=== PATIENT | female | born 1950 | race Caucasian/White ===

== ENCOUNTER 2019-02-21 00:39 | Outpatient (CLI) | payer MEDICARE, SELFPAY ==
--- NOTE | ~2019-02-21 | MM_ITS ---
EXAMINATION: MM diagnostic mirella BI w patrick HISTORY: Left breast cancer TECHNIQUE: Additional 3-D tomosynthesis images of the breasts were performed and synthetic 2-D images were generated. CAD analysis was submitted and interpreted. COMPARISON: Comparison to multiple prior studies sequentially, with oldest reviewed study dated 02/10. FINDINGS: Breast composed of scattered areas of fibroglandular density. There are no suspicious guillermo s, calcifications or architectural distortion to suggest malignancy. There are postsurgical changes o f the left breast with overlying port. IMPRESSION: 1. No mammographic evidence for malignancy in either breast. 2. Routine yearly screening mammogram and regular clinical breast examination are recommended. BI-RADS Category 2: Benign finding(s). Reviewed, dictated and finalized at location A. [facility] [employer] IMPRESSION: 1. No mammographic evidence for malignancy in either breast. 2. Routine yearly screening mammogram and regular clinical breast examination a re recommended. BI-RADS Category 2: Benign finding(s).
== END 2019-02-21 00:40 | disposition home or self-care (01) ==
PROVIDERS: PCP Internal Medicine; Visit Provider Internal Medicine Hematology & Oncology
DX: C50.412 Malignant neoplasm of upper-outer quadrant of left female breast (principal); Z17.0 Estrogen receptor positive status [ER+]
CPT/HCPCS: 77062; 77066; G0279

== ENCOUNTER 2019-04-09 10:36 | Outpatient (CLI) | payer MEDICARE, SELFPAY ==
--- NOTE | 2019-04-09 10:42 | ECG_ITS ---
Measurements Intervals [place] Rate: 82 P: 45 WA: 148 QRS: 0 QRSD: 91 T: 36 QT: 380 QTc: 445 Interpretive Statements SINUS RHYTHM BORDERLINE R WAVE PROGRESSION, ANTERIOR LEADS BORDERLINE ECG Electronically Signed On 04-09-2019 11:40:39 MOTORCYCLE TECHNICIAN by Justin Rosas D.O.
[2019-04-09 11:17] LABS: INR 0.8; Prothrombin Time 11.2 Seconds (11.1-14.7)
[2019-04-09 11:18] LABS: Partial Thromboplastin Time 25.9 SECONDS (22.3-36.8)
== END 2019-04-09 10:37 | disposition home or self-care (01) ==
PROVIDERS: Anesthesiology; PCP Internal Medicine; Visit Provider Surgery
DX: N28.9 Disorder of kidney and ureter, unspecified (principal); I12.9 Hypertensive chronic kidney disease with stage 1 through stage 4 chronic kidney disease, or unspecified chronic kidney disease; R94.31 Abnormal electrocardiogram [ECG] [EKG]
CPT/HCPCS: 36415; 85610; 85730; 93005

== ENCOUNTER 2019-04-12 01:22 | Day surgery (SDC) | payer MEDICARE, SELFPAY ==
[2019-04-08 13:15] VITALS: BMI 36.1
--- NOTE | 2019-04-12 08:38 | PM.SD ---
Same Day Admit/Disch: HPI History of Present Illness Chief complaint: Breast Ca Narrative: Cheri Prado is a 68 year old female Who in November of 2017 underwent left partial mastectomy with left axillary sentinel lymph node biopsy. She also underwent placement of a left subclavian Port-A-Cath. This was done by . This was a HER 2 positive tumor and the patient underwent chemotherapy. She did have radiation therapy to the left chest as well. Her Port-A-Cath is no longer needed. She is taken to surgery now for removal of her left subclavian Port-A-Cath. FOR[facility]LY [facility] Past Medical History Medical History (Updated 04/12/19 @ 10:22 by Wong Orona MD) Breast cancer, left Chronic kidney disease Depression Diabetes Hyperlipidemia Hypertension Neuropathy Family History Family History Other Family history of malignant neoplasm of gastrointestinal tract Social History Social History Smoking status: Never smoker Second hand tobacco smoke exposure: No Alcohol intake: never Gender identity (if verbalized by the patient): Female Same Day Admit/Disch: Med Pre-admit Medications Home Medications Medication Instructions Recorded Confirmed Type amlodipine 5 mg PO DAILY 12/28/18 04/12/19 History aspirin [Aspir-81] 81 mg PO DAILY 12/28/18 04/08/19 History calcitriol 0.25 mcg PO HS 12/28/18 04/12/19 History cholecalciferol (vitamin D3) 50,000 unit PO WEEKLY 12/28/18 04/08/19 History citalopram 20 mg PO DAILY 12/28/18 04/12/19 History gabapentin 300 mg PO BID 12/28/18 04/08/19 History lisinopril 20 mg PO DAILY 12/28/18 04/08/19 History loperamide 2 mg PO DAILY 12/28/18 04/12/19 History metformin 1,000 mg PO BID 12/28/18 04/08/19 History pravastatin 40 mg PO HS 12/28/18 04/08/19 History sertraline 100 mg PO DAILY 12/28/18 04/08/19 History anastrozole 1 mg PO HS 04/08/19 04/08/19 History mecobalamin (vitamin B12) 1 cap PO DAILY 04/08/19 04/12/19 History hydrocodone-acetaminophen 1 - 2 tablet PO Q6H PRN #7 tablet 04/12/19 Rx Exam Const: General: comfortable, no acute distress, alert and awake HENMT: Head: normocephalic and atraumatic Mouth: Yes Normal oral and palatal mucosa present Eyes: Conjunctivae: conjunctivae normal Pupils: Equal, round and reactive pupils present EOM: EOMs intact bilaterally Neck: Neck: normal visual inspection, no lymphadenopathy and nontender Chest: Chest palpation & inspection: abnormal inspection of the chest ( Left subclavian Port-A-Cath noted.), no tenderness and No rash Resp: Effort & Inspection: normal respiratory effort Auscultation: clear to auscultation bilaterally Cardio: Rate: regular rate Rhythm: regular rhythm Heart sounds: no gallops, no murmurs and no rubs GI: Inspection: non-distended GI Palp: Yes Soft to palpation, No Tenderness to palpation present (GI), No Hepatomegaly present and No Splenomegaly present Skin: Lesions: no lesions Rashes: no rashes Neuro: General: no focal motor deficits and CN's II-XI intact bilaterally Cranial nerves: Yes Equal, round and reactive pupils present, Yes Bilaterally intact EOM present, Yes facial symmetry and Yes Midline tongue present Speech: normal speech Motor exam (neuro): 5/5 motor strength present throughout and Motor abnormalities not present Extrem: General: no clubbing, cyanosis or edema and edema Psych: Affect: normal affect Thought process: Normal thought process present Insight: Good insight present (Psych) DS: Summary Time Spent with Patient Time attestation: Total time spent providing and/or coordinating discharge services: DS: Diagnosis Admitting Diagnosis Admitting Diagnosis: Essential (primary) hypertension Discharge Diagnosis (1) Breast cancer, left: Code(s): C50.912 - Malignant neoplasm of unspecified site of left female breast Status: Chronic Assessme
[2019-04-12 10:19] VITALS: BP 138/77; PULSE 86; RESP 20; TEMP 36.9; O2SAT 97
--- NOTE | 2019-04-12 10:19 | WPDANESEPPF ---
Anes - Initial Pre Proc Eval Procedure: Operation Date: 04/12/19 11:45 Proposed Procedures p Removal David Cath - Bennie Warren MD Date/Time: 04/12/19 10:19 Surgeon: Bennie Warren MD Pre Op Diagnosis: Breast Ca Patient Data Age: 68 Gender: F Height: 5 ft 1 in Weight: 86.64 kg Allergies Allergy/AdvReac Type Severity Reaction Status Date / Time No Known Allergies Allergy Unverified 04/08/19 13:07 Home Medications Medication Instructions Recorded Confirmed Type amlodipine 5 mg PO DAILY 12/28/18 04/08/19 History aspirin [Aspir-81] 81 mg PO DAILY 12/28/18 04/08/19 History calcitriol 0.25 mcg PO HS 12/28/18 04/08/19 History cholecalciferol (vitamin D3) 50,000 unit PO WEEKLY 12/28/18 04/08/19 History citalopram 20 mg PO DAILY 12/28/18 04/08/19 History gabapentin 300 mg PO BID 12/28/18 04/08/19 History lisinopril 20 mg PO DAILY 12/28/18 04/08/19 History loperamide 2 mg PO DAILY 12/28/18 04/08/19 History metformin 1,000 mg PO BID 12/28/18 04/08/19 History pravastatin 40 mg PO HS 12/28/18 04/08/19 History sertraline 100 mg PO DAILY 12/28/18 04/08/19 History anastrozole 1 mg PO HS 04/08/19 04/08/19 History mecobalamin (vitamin B12) 1 cap PO DAILY 04/08/19 04/08/19 History Patient hx anesthesia problems: none Family hx anesthesia problems: none PMFSH Past Medical History Medical History (Updated 04/12/19 @ 10:22 by Wong Orona MD) Breast cancer, left Chronic kidney disease Depression Diabetes Hyperlipidemia Hypertension Neuropathy Family History Family History Other Family history of malignant neoplasm of gastrointestinal tract Social History Social History Smoking status: Never smoker Second hand tobacco smoke exposure: No Alcohol intake: never Gender identity (if verbalized by the patient): Female Anes - Eval Final PreProcedure Day of Procedure 04/12/19 10:19 Patient weight: obese Heart: regular rate and rhythm Lungs: clear to auscultation Airway: Mallampati scale class II Neurological: alert and oriented Last oral intake: >/= 8 hours ASA classification: III Emergent: no Anesthetic plan: proceed Anesthesia type and monitoring: general GIVS and standard monitoring Informed Consent: The patient's anesthetic plan and its attendant risks and benefits were discussed with the patient/family/POA. Questions were solicited and answers provided to the satisfaction of the patient/family/POA.
[2019-04-12] MEDS: LACTATED RINGERS 1,000 ML 30 ML IV CONT (10:30)
[2019-04-12 10:51] LABS: Glucose Point of Care 86 (65-105)
[2019-04-12] MEDS: ceFAZolin 2 GM/D5W 50 ML 2 GM/50 ML BAG IVPB (11:53)
[2019-04-12] MEDS: BUPIVACAINE/EPINEPHRINE 0.5% 30 ML VIAL INFILTRATE (12:11)
[2019-04-12 12:28] VITALS: BP 104/59; BP 108/57; PULSE 71; PULSE 99; RESP 14; O2SAT 93
--- NOTE | 2019-04-12 12:36 | PM.PROC ---
Procedure Note - Detailed Date of procedure: 04/12/19 Pre-op diagnosis: Breast Ca; Port-A-Cath no longer needed Left breast cancer, left subclavian Port-A-Cath no longer needed Post-op diagnosis: same Procedure performed: Removal left subclavian Port-A-Cath Description of procedure: The patient was taken to surgery and IV sedation was administered. The left upper chest and breast were prepped and draped. The reservoir was easily found. The proposed incision was marked on the skin over the reservoir. Local was infiltrated into the skin and the subcutaneous tissues. Incision was made and dissection to the reservoir was carried out. The fiber sheath around the reservoir was opened. The reservoir was dissected free from the fiber sheath. The sutures keeping the reservoir secure in the pocket were cut and the reservoir was able to be removed. There was back bleeding from the tract. The opening of the tract was closed with a 3 0 Monocryl suture. The Port-A-Cath was inspected and was intact. It was discarded. The wound was hemostatic. Additional local was infiltrated. The wound was closed in layers with interrupted 3 0 Monocryl suture. The skin was closed with subcuticular running 4 0 Monocryl skin suture. Wound was dressed with Exofin surgical adhesive. The patient was awakened and taken to recovery in good condition. Sponge and needle counts were correct x2. Anesthesia: MAC and local (0.5% Marcaine with epinephrine) Surgeon: Bennie Warren MD Concrete Pourer: Sarah BENÍTEZ ACADEMIC SUCCESS COORDINATOR Estimated blood loss (mL): 5 Drains: No Packing: No Pathology: none sent Complications: None Condition: stable Disposition: same day Findings: Intact Port-A-Cath
[2019-04-12 12:44] LABS: Glucose Point of Care 81 (65-105)
[2019-04-12 12:55] VITALS: BP 110/62; PULSE 82
[2019-04-12 13:25] VITALS: BP 117/64; PULSE 91
== END 2019-04-12 13:33 | disposition home or self-care (01) ==
PROVIDERS: PCP Internal Medicine; Visit Provider Surgery
PROC: (CPT 36589; principal; 2019-04-12 11:45)
DX: Z45.2 Encounter for adjustment and management of vascular access device (principal); Z85.3 Personal history of malignant neoplasm of breast; Z92.21 Personal history of antineoplastic chemotherapy; Z92.3 Personal history of irradiation; I12.9 Hypertensive chronic kidney disease with stage 1 through stage 4 chronic kidney disease, or unspecified chronic kidney disease; N18.9 Chronic kidney disease, unspecified; E11.22 Type 2 diabetes mellitus with diabetic chronic kidney disease; E78.5 Hyperlipidemia, unspecified; E11.40 Type 2 diabetes mellitus with diabetic neuropathy, unspecified; Z79.82 Long term (current) use of aspirin; Z79.84 Long term (current) use of oral hypoglycemic drugs; Z79.811 Long term (current) use of aromatase inhibitors; E66.9 Obesity, unspecified; Z68.36 Body mass index [BMI] 36.0-36.9, adult
CPT/HCPCS: 36590; J0690; J2250; J2704; J7120

== ENCOUNTER 2019-07-03 09:09 | Outpatient (CLI) | payer MEDICARE, SELFPAY ==
--- NOTE | ~2019-07-03 | DEXA_ITS ---
Bone Density Report Name: Cheri Prado Age: 68 Sex: Female Ethnicity: White Date of : 1950 Indication: postmenopausal; height loss; cancer; hysterectomy; Referring Provider: Emir Ruggiero Study: Bone densitometry was performed. Exam Date: July 03, 2019 Accession number: [id number] Bone Density: Region BMD T-score Z-score Classification AP Spine (L1-L4) 1.276 2.1 4.0 Normal Femoral Neck (Left) 0.858 0.1 1.7 Normal Total Hip (Left) 1.087 1.2 2.6 Normal Total Hip Bilateral Avg 1.062 1.0 2.4 Normal Femoral Neck (Right) 0.825 -0.2 1.4 Normal Total Hip (Right) 1.037 0.8 2.2 Normal World Health Organization criteria for BMD impression classify patients as: Normal (T-score at or above -1.0), Osteopenia (T-score between -1.0 and -2.5), or Osteoporosis (T-score at or below -2.5). 10-year Fracture Risk: FRAX not reported because: All T-scores for Spine Total, Hip Total, Femoral Neck at or above -1.0 Previous Exams: Region Exam Age BMD T-score BMD Change BMD Change Date g/cm2 vs Baseline vs Previous AP Spine(L1-L4) 07/03/2019 68 1.276 2.1 0.067(5.6%)# -0.002(-0.1%) 02/16/2015 64 1.278 2.1 0.069(5.7%)# 0.049(4.0%)# 12/28/2012 62 1.229 1.7 0.020(1.7%)# -0.021(-1.7%)# 12/20/2010 60 1.250 1.8 0.041(3.4%)* 0.041(3.4%)* 12/08/2008 58 1.209 1.5 Total Hip(Left) 07/03/2019 68 1.087 1.2 -0.101(-8.5%)# -0.021(-1.9%) 02/16/2015 64 1.108 1.4 -0.079(-6.7%)# -0.080(-6.7%)# 12/28/2012 62 1.188 2.0 0.001(0.1%)# -0.048(-3.9%)# 12/20/2010 60 1.236 2.4 0.048(4.1%)* 0.048(4.1%)* 12/08/2008 58 1.187 2.0 Total Hip(Right) 07/03/2019 68 1.037 0.8 -0.121(-10.5%) -0.046(-4.2%)* 02/16/2015 64 1.083 1.2 -0.076(-6.5%)# -0.018(-1.7%)# 12/28/2012 62 1.101 1.3 -0.057(-5.0%)# -0.018(-1.6%)# 12/20/2010 60 1.120 1.5 -0.039(-3.4%)* -0.039(-3.4%)* 12/08/2008 58 1.159 1.8 *Denotes significance at 95% confidence level, LSC for AP Spine = 0.022 g/cm2, LSC for Total Hip = 0.027 g/cm2 Clinical Information Provided by Patient: Smokes Has used the following medications: Vitamin D Has the following medical conditions: Cancer, Hysterectomy Patient maximum height was 62 Menopause Age: 46 No regular weight bearing exercise Does not regularly consume dairy products Drinks caffeinated beverages Onset of menses at age 17 Number of children 2 Impression: The bradley
== END 2019-07-03 09:10 | disposition home or self-care (01) ==
PROVIDERS: PCP Internal Medicine; Visit Provider Internal Medicine Hematology & Oncology
DX: M85.89 Other specified disorders of bone density and structure, multiple sites (principal)
CPT/HCPCS: 77080

== ENCOUNTER 2019-10-08 11:32 | Outpatient (CLI) | payer MEDICARE, SELFPAY ==
--- NOTE | ~2019-10-08 | MM_ITS ---
EXAMINATION: MM diagnostic mirella LT w patrick HISTORY: The breasts is a collection is present just is reversal of the TECHNIQUE: ML, MLO and cc 3-D tomosynthesis images of the left breast were performed and synthetic 2- D images were generated. CAD analysis was submitted and interpreted. COMPARISON: 02/28/2019bilateral digital screening mammogram BREAST PARENCHYMAL COMPOSITION: There are scattered areas of fibroglandular density. FINDINGS: Surgical clips are noted in the mid to outer upper left breast; history of 11/2017 partial m astectomy for breast malignancy No suspicious mass is evident. No malignant calcification or skin thickening is noted. IMPRESSION: 1. Status post left partial mastectomy for breast cancer; no malignancy is evident 2. Routine mammographic screening is recommended; this does not preclude any additional imaging as co nsidered appropriate clinically for follow-up imaging of this breast cancer patient. BI-RADS Category 2: Benign finding(s). Reviewed, dictated and finalized at location A. IMPRESSION: 1. Status post left partial mastectomy for breast cancer; no malignancy is evid ent 2. Routine mammographic screening is recommended; this does not preclude any ad ditional imaging as considered appropriate clinically for follow-up imaging of this breast cancer patient. BI-RADS Category 2: Benign finding(s).
== END 2019-10-08 11:33 | disposition home or self-care (01) ==
LOC: ANHIMG 11:35
PROVIDERS: PCP Internal Medicine; Visit Provider Internal Medicine Hematology & Oncology
DX: C50.412 Malignant neoplasm of upper-outer quadrant of left female breast (principal)
CPT/HCPCS: 77061; 77065; G0279

== ENCOUNTER 2019-12-15 21:35 | Observation (INO) | payer MEDICARE, SELFPAY ==
--- NOTE | ~2019-12-15 | MR_ITS ---
EXAMINATION: MR brain/brain stem wo/w con EXAM DATE: 12/16/2019 09:41 INDICATION: Slurred speech. Syncope. Symptoms have resolved. Transient ischemic attack. TECHNIQUE: Magnetic resonance imaging (MRI) of the brain/brain stem obtained without contrast. Sagit helena T1, axial diffusion, gradient echo (T2*), T1, T2, FLAIR sequences obtained. Patient was then inj ected with 17 cc intravenous Multihance contrast. Axial and coronal postcontrast T1 weighted sequence s obtained. Correlation is made to CTA brain carotid same date. FINDINGS: There are no areas of restricted diffusion to suggest acute infarction. There is no acute hemorrhage seen on the T2*, a hemosiderin sensitive sequence. No intraparenchymal brain mass lesion. There is minimal periventricular and subcortical T2/FLAIR signal hyperintensity, nonspecific but pro bably related to small vessel ischemic disease (microangiopathy). There is mild prominence of the s ulci and ventricles related to cerebral atrophy. There are no extra-axial collections. Flow voids are seen in the cerebral arteries on the T2-weighted sequences consistent with their expected patency . Patient has had left-sided ocular lens surgery. Soft tissue is unremarkable. There are no areas of abnormal enhancement on the postcontrast images. IMPRESSION: 1. No acute intracranial findings. 2. Chronic age related findings. Reviewed, dictated and finalized at location B.
--- NOTE | ~2019-12-15 | CT_ITS ---
EXAMINATION: CTA brain carotid EXAM DATE: 12/15/2019 23:08 INDICATION: Dizziness, slurred speech. TECHNIQUE: Noncontrast head CT. Spiral CTA of the carotid arteries was performed with intravenous i njection 100 cc of Omnipaque 350. Axial, coronal, sagittal reformatted images reviewed. Additional r eformatted images created on dedicated 3-D workstation. NASCET comparable standard used to assess th e degree of arterial stenosis. Spiral CT angiogram cerebral arteries performed with the same intrave nous injection of contrast. Source images of the brain CTA transferred to dedicated workstation for 3 -D rotational image creation. Coronal, sagittal maximum intensity pixel images also reviewed. The d ose-length product (DLP) for this examination was 1467.84 mGy-cm. The exposure was tailored accordi ng to patient size, and iterative reconstruction (ASIR) was used as additional dose reduction techniq ue. There is no prior study for comparison. FINDINGS: Mild bilateral carotid bulb arterial sclerosis with 0% stenosis bilaterally. Moderate bilat eral carotid siphon arterial sclerosis, with regions of circumferential calcification, but without ap preciable narrowing of the carotid siphons bilaterally. Vertebral arteries are codominant. There is no carotid or vertebral basilar arterial dissection or fibromuscular dysplasia. There are no cerebral artery aneurysms. There is symmetric cerebral artery arborization. The sagittal, transverse and sigm oid sinuses enhance normally, no venous sinus thrombosis. Internal cerebral veins also enhance normal ly. There is no acute intraparenchymal hemorrhage. No evidence of intraparenchymal brain mass lesion. N o evidence of acute infarction. Mild microangiopathy and cerebral atrophy. There is no mass effect o r midline shift. There is no obstructive hydrocephalus suspected. There are no extra-axial collectio ns. There are no calvarial acute fractures. Left cataract surgery. IMPRESSION: 1. No cervical arterial dissection or cerebral artery aneurysm. 2. No carotid bulb stenosis, or acute findings Reviewed, dictated and finalized at location B.
--- NOTE | ~2019-12-15 | XR_ITS ---
XR chest 1V portable DATE: 12/15/2019 22:40 INDICATION: Syncopal episode. Slight headache. TECHNIQUE: Portable upright AP chest on 12/15/2019 at 2241 hours COMPARISON: 02/07/2018 portable AP chest at 0840 hours FINDINGS: Heart size is within normal limits. Is aortic arch calcification. No hilar or mediastinal e nlargement is evident. The lungs appear hyperinflated but clear of infiltrate or consolidation. No pl eural effusion or pulmonary vascular congestion or pneumothorax. Diffuse osteopenia. Degenerative spurring of the thoracic spine. IMPRESSION: Hyperinflation; no active cardiopulmonary disease Reviewed, dictated and finalized at location A.
[2019-12-15 21:41] VITALS: BP 129/81; PULSE 99; RESP 17; TEMP 37.1; O2SAT 99
--- NOTE | 2019-12-15 21:55 | ECG_ITS ---
Measurements Intervals [place] Rate: 102 P: MA: 0 QRS: 12 QRSD: 83 T: 56 QT: 319 QTc: 417 Interpretive Statements ATRIAL TACHYCARDIA CHANGES TO SINUS RHYTHM NONSPECIFIC ST & T-WAVE ABNORMALITY- INF/HIGH LAT LEADS BASELINE ARTIFACT- I, II, III, AVR, AVL, AVF, V1 ABNORMAL ECG Electronically Signed On 12-16-2019 6:53:16 CDT by Justin Rosas D.O.
--- NOTE | 2019-12-15 22:11 | ECG_ITS ---
Measurements Intervals [place] Rate: 95 P: 61 MS: 137 QRS: 7 QRSD: 87 T: 50 QT: 378 QTc: 476 Interpretive Statements SINUS RHYTHM DELAYED PRECORDIAL R/S TRANSITION BASELINE ARTIFACT- AVR, AVL, AVF, V3 BORDERLINE ECG Electronically Signed On 12-16-2019 9:53:32 CDT by Justin Rosas D.O.
[2019-12-15 22:13] VITALS: BP 137/67; PULSE 98; RESP 18; TEMP 37.1; O2SAT 98
--- NOTE | 2019-12-15 22:13 | ED.GENADULT ---
HPI - General Adult General Chief complaint: Syncope Stated complaint: syncopal episode Time Seen by Provider: 12/15/19 21:43 Source: patient Mode of arrival: ambulatory Limitations: no limitations History of Present Illness HPI narrative: This patient is a 69 year old female who presents for evaluation of a syncopal episode. Patient states she had just finished having dinner with her family. She was walking around when she states her eyes seemed to cross and she did not feel right. She states she went inside her house to sit down on the couch. She reports dizziness. She was able to call her daughter, and she told her she did not feel right and to come back to her house. Her daughter states when her sister found the patient, she was laying on the couch with her eyes closed with unintelligible speech. They also reports was having chills. Patient denies feeling chest pain, sob, or palpitations at the time of her dizziness. She denies any complaints now. She denies history of heart disease or CVA. Related Data Home Medications Medication Instructions Recorded Confirmed amlodipine 5 mg PO DAILY 12/28/18 12/16/19 calcitriol 0.25 mcg PO HS 12/28/18 12/16/19 cholecalciferol (vitamin D3) 50,000 unit PO WEEKLY 12/28/18 12/16/19 citalopram 20 mg PO DAILY 12/28/18 12/16/19 gabapentin 300 mg PO TID 12/28/18 12/16/19 lisinopril 20 mg PO DAILY 12/28/18 12/16/19 loperamide 2 mg PO BID 12/28/18 12/16/19 metformin 1,000 mg PO BID 12/28/18 12/16/19 pravastatin 40 mg PO HS 12/28/18 12/16/19 sertraline 100 mg PO DAILY 12/28/18 12/16/19 mecobalamin (vitamin B12) 1 cap PO DAILY 04/08/19 12/16/19 anastrozole 1 mg tablet 1 mg PO DAILY 07/16/19 12/16/19 ferrous sulfate 325 mg PO DAILY 12/15/19 12/16/19 Allergies Allergy/AdvReac Type Severity Reaction Status Date / Time No Known Allergies Allergy Verified 12/15/19 21:50 Review of Systems Review of Systems: All systems reviewed & are unremarkable except as noted in HPI and below Constitutional: Constitutional: Reports chills Eyes: Eyes: Reports change in vision ENT: Reports dizziness Cardiovascular: Cardiovascular: Denies chest pain and Denies radiating jaw, neck or arm pain Respiratory: Respiratory: Denies cough and Denies dyspnea Gastrointestinal: Gastrointestinal: Denies abdominal pain, Denies nausea and Denies vomiting Neurologic: Reports syncope, Denies focal weakness and Denies numbness PMFSH Social History Social History Years smoked: 4 Smoking status: Current every day smoker Tobacco type: cigarettes Second hand tobacco smoke exposure: Yes Alcohol intake: former Substance use: never Substance use type: does not use Gender identity (if verbalized by the patient): Female Spiritual care concerns: No Exam Narrative: Exam Narrative: GENERAL: Well-appearing, well-nourished, and in no acute distress. HEAD: Normocephalic, atraumatic EYES: PERRLA and EOMI, conjunctiva clear without discharge EARS: TM's clear bilaterally without erythema or dullness NOSE: Nares clear, no rhinorrhea or epistaxis THROAT:Mucous membranes moist, Oropharynx normal without erythema, exudate, peritonsillar swelling or fluctuance NECK: Supple, without lymphadenopathy or mass RESPIRATORY: No respiratory distress, Airway patent, Respirations non-labored, Clear to auscultation without rales, rhonchi or wheeze HEART: Regular rate and rhythm. No murmur heard. Normal peripheral pulses. ABDOMEN: Soft, nontender, nondistended, normal active bowel sounds. No masses. No rebound or guarding, No organomegaly. EXTREMITIES: No edema, normal strength with full range of motion. SKIN: Warm, dry, normal color without rash NEURO: Alert and oriented x3. CN 2-12 grossly intact. No focal deficits. PSYCH: Normal mood and affect. Course Consultations Consultation #1: I discussed case with Dr. Palma. She accepts patient to [facility] tel
--- NOTE | 2019-12-15 22:18 | PC.NURSE ---
Patient's bedside glucose is 114.
[2019-12-15 22:19] VITALS: BP 136/67; BP 139/73; BP 141/69; PULSE 101; PULSE 102; PULSE 91
[2019-12-15 22:20] LABS: Glucose Point of Care 114 (65-105)
[2019-12-15 22:22] LABS: Basophils Absolute Auto 0.1 K/mm3 (0.0-0.1); Basophils Percent Auto 0.4 % (0.2-1.2); Eosinophils Absolute Auto 0.2 K/mm3 (0-0.3); Eosinophils Percent Auto 1.5 % (0-4.4); Hematocrit 38.1 % (37.0-47.0); Hemoglobin 11.6 g/dL (12.0-15.0); Immature Granulocyte Absolute 0.03 K/mm3 (0.00-0.031); Immature Granulocyte Percent A 0.2 % (0-0.5); Lymphocytes Absolute Auto 1.98 K/mm3 (0.9-3.2); Lymphocytes Percent Auto 15.5 % (18.3-44.2); Mean Corpuscular HGB Conc 30.4 g/dl (32-36); Mean Corpuscular Hemoglobin 28.4 pg (26-34); Mean Corpuscular Volume 93.2 fl (80-100); Mean Platelet Volume 10.7 fl (7.4-10.4); Monocytes Percent Auto 7.9 % (2.6-8.5); Neutrophils Absolute Auto 9.5 K/mm3 (1.3-6.7); Neutrophils Percent Auto 74.5 % (45.5-73.1); Platelet Count Result 238 k/mm3 (150-375); Red Blood Count 4.09 M/mm3 (4.2-5.4); Red Cell Distribution Width 13.8 % (11.5-14.5); White Blood Count 12.8 K/mm3 (4.5-10.0)
--- NOTE | 2019-12-15 22:26 | PC.NURSE ---
Patient attempting to give urine sample at this time.
[2019-12-15 22:31] LABS: Prothrombin Time 13.1 Seconds (11.1-14.7)
[2019-12-15 22:32] LABS: Partial Thromboplastin Time 26.9 SECONDS (22.3-36.8)
[2019-12-15 22:33] LABS: Anion Gap 14 mmol/L (8-16); Blood Urea Nitrogen 23 mg/dL (7-17); Calcium 9.6 mg/dL (8.4-10.2); Carbon Dioxide 26 mmol/L (22-30); Chloride 105 mmol/L (98-107); Estimated CRCL calculation 32 ml/min; Estimated Glomerular Filt Rate 35; Glucose 117 mg/dL (65-105); Sodium 145 mmol/L (137-145)
--- NOTE | 2019-12-15 22:33 | PC.NURSE ---
Patient unsuccessful with attempting to provide a urine specimen. Patient states she will attempt again shortly.
[2019-12-15 22:45] LABS: Troponin I < 0.012 ng/mL (0.000-0.034)
--- NOTE | 2019-12-15 22:45 | PC.NURSE ---
Patient taken to CT.
[2019-12-15 23:05] VITALS: BP 127/61; PULSE 86; RESP 18; O2SAT 97
[2019-12-15] MEDS: MAGNESIUM SULF 2 GM/WATER 50ML 2 GM/50 ML BAG IVPB (23:05)
[2019-12-15] MEDS: LACTATED RINGERS 1,000 ML 999 ML IV CONT (23:05)
[2019-12-16] VITALS (11 sets, daily range): BP systolic 116–144; BP diastolic 51–67; PULSE 78–96; RESP 12–20; TEMP 36.3–37.4; O2SAT 96–98; BMI 36.6
[2019-12-16 00:51] LABS: Add Urine Microscopic? YES; Appearance Urine Clear (Clear); Bilirubin Urine Negative (Negative); Blood Urine 2+ (Negative); Color Urine Yellow (Yellow); Glucose Urine UA Negative (Negative); Ketones Urine Negative (Negative); Leukocyte Esterase Ur 1+ LEU/UL (Negative); Mucus Urine Rare /lpf; Nitrate Urine Negative (Negative); Protein Urine Negative (Negative); RBC Urine 0-2 /hpf (0-2); Squamous Epithelial Cell Urine Few /hpf (Few); Urobilinogen Urine Negative mg/dL (<2.0)
[2019-12-16 00:57] LABS: Specific Grav Ur 1.045 (1.001-1.035)
--- NOTE | 2019-12-16 01:04 | ADMGEN ---
This patient, Cheri Prado, was admitted to Medical Room 252-. Patient/family oriented to hospital policies and general routines including ID bracelet, bed and alarms, visiting hours, pain management, procedures, bathroom and other care routines, personal items, smoking policy, room service/diet, and visiting hours. Valuables list has been completed. Information on how to activate the Rapid Response Team has been discussed. Patient/Family are encouraged to report perceived risks to care and to ask questions if they do not understand what they are told or what they should do.
[2019-12-16] MEDS: SODIUM CHLORIDE 0.9% IV 1,000 ML 125 ML IV CONT ×2 (01:38→11:22)
--- NOTE | 2019-12-16 06:00 | ECHO_ITS ---
Patient Info Name: Cheri Prado Age: 69 years : 1950 Gender: Female Ht: 61 in Wt: 189 lbs BSA: 1.96 m2 HR: 87 bpm BP: 116 / 51 mmHg Heart Rhythm: Sinus Rhythm Technical Quality: Good Exam Date: 12/16/2019 2:13 PM Exam Location: [facility] Pulmonary Patient Status: Inpatient Admit Date: 12/15/2019 Staff Ordering Physician: Parris Graham MD Biomedical Scientist: Paul Carrillo RDCS Attending Provider: Marifer Woodson PA-C Referring Physician: Gladys SAHA; Exam Type: CA echo doppler color flow Study Info Indications R55 - Syncope and collapse Complete two-dimensional, color flow and Doppler transthoracic echocardiogram is performed. History/Risk Factors Syncope; possible arrhythmia, CKD, HTN, Dm2. Summary 1. Complete two-dimensional, color flow and Doppler transthoracic echocardiogram is performed. 2. Left ventricular chamber dimension is normal. 3. Left ventricular systolic function is normal, estimated at 60-65%. 4. The left ventricular diastolic function is grade I diastolic dysfunction. 5. There is trace mitral valve regurgitation. 6. There is trace tricuspid valve regurgitation. 7. Compared with study dated December of 2017 there is no significant difference. Left Ventricle Left ventricular chamber dimension is normal. Left ventricular systolic function is normal, estimated at 60-65%. The left ventricular diastolic function is grade I diastolic dysfunction. Right Ventricle Right ventricular chamber dimension is normal. Left Atria Left atrial chamber dimension is normal. Right Atria Right atrial chamber dimension is normal. Aortic Valve The aortic valve is trileaflet. Pulmonic Valve The pulmonic valve is normal. Mitral Valve The mitral valve has normal leaflets. There is trace mitral valve regurgitation. Tricuspid Valve The tricuspid valve leaflets are normal. There is trace tricuspid valve regurgitation. Pericardium/Pleural The pericardium appears normal. Aorta The aortic root size at the sinus of Valsalva is normal. Left Ventricular Outflow Tract Name Value Normal LVOT 2D LVOT Diameter 1.8 cm LVOT Doppler LVOT Peak Gradient 6 mmHg LVOT Mean Gradient 3 mmHg LVOT VTI 25 cm LVOT VTI/AV VTI Ratio 0.8 LVOT Stroke Volume 64 ml LVOT CO 5.6 l/min LVOT CI 2.8 l/min/m2 Mitral Valve Name Value Normal MV Doppler MV Decel [place] 597 cm/s2 MV PHT 48 ms MV Area (PHT) 4.5 cm2 4.0-5.0 MV Diastolic Function MV E Peak Velocity
--- NOTE | 2019-12-16 07:24 | PM.IMHP ---
H&P: HPI History of Present Illness Date/Time: 12/16/19 03:00 Chief complaint: Passed out Narrative: Cheri Prado is a 69 year old female with a past medical history of type 2 diabetes mellitus and hypertension who presented to the ER from home after having syncopal episode. The patient reports that she has been today cleaning up her deck in putting up the materials from her pool. She then prepared her usual Monday dinner. Her daughter's always come over with her family for Monday dinner. She had felt well all day until her daughter's were leaving the house. She had went outside to wave goodbye to her daughter and to smoke a cigarette. She she went to take a couple of puffs off the cigarette but did not feel well. She felt as if her eyes may have been crossing and everything without of focus. She went inside thinking that she may just may need a drink cuff soda because she had not had a soda all day. By the time she had gotten to the couch she felt so bad she called her daughter to get her to come back to her house. Before she could get a drink of her so does she passed out. The next thing she knew her daughters were standing around her. When her daughter had arrived at her house the patient was unresponsive and only mumbling intelligible words. Her daughter's called EMS who recommended that the patient come to the ER the family brought the patient to the ER via private vehicle. The patient was diaphoretic. The patient's glucose on arrival to the ER was 114. Review of Systems Review of Systems: Narrative: 12 systems were reviewed with pertinent positives and negatives per HPI. Except as documented in the HPI, all other systems were reviewed and are negative. [facility] Past Medical History Medical History (Updated 12/16/19 @ 08:20 by Neetu Palma DO) Breast cancer, left Oncologist Dr. Ruggiero Cataract, right eye Anticipating surgery soon Chronic kidney disease Depression Diabetes History of chronic diarrhea Following cholecystectomy on b.i.d. Imodium History of vaginal delivery x 2 Hyperlipidemia Hypertension Neuropathy Osteoarthritis of left knee Surgical History Surgical History (Updated 12/16/19 @ 07:58 by Neetu Palma DO) H/O total hysterectomy with removal of both tubes and ovaries Due to endometriosis History of augmentation of right breast (12/04/17) History of cholecystectomy History of left cataract extraction History of ovarian cystectomy History of partial mastectomy of left breast (12/04/17) Family History Family History (Updated 12/16/19 @ 07:59 by Neetu Palma DO) Father Heart disease Social History Social History (Updated 12/16/19 @ 08:04 by Neetu Palma DO) Social History: The patient reports that she smoked for approximately 27 years and then quit in 1999. She then started smoking again about 4 years ago when her . She used to drink alcohol rarely for on special occasions but has not drank alcohol in many years. She lives alone and has an [place] Pineda. She has 2 daughters. Smoking packs per day: 0.5 Smoking cigarettes per day: 10.0 Years smoked: 31 Smoking pack-years: 15.50 Smoking status: Current every day smoker Tobacco type: cigarettes Second hand tobacco smoke exposure: Yes Alcohol intake: former Substance use: never Substance use type: does not use Gender identity (if verbalized by the patient): Female Spiritual care concerns: No Meds Home Medications and Allergies Home Medications Medication Instructions Recorded Confirmed Type amlodipine 5 mg PO DAILY 12/28/18 12/16/19 History calcitriol 0.25 mcg PO HS 12/28/18 12/16/19 History cholecalciferol (vitamin D3) 50,000 unit PO WEEKLY 12/28/18 12/16/19 History citalopram 20 mg PO DAILY 12/28/18 12/16/19 History gabapentin 300 mg PO TID 12/28/18 12/16/19 History lisinopril 20 mg PO DAILY 12/28/18 12/16/19 History loperamide 2 mg PO BID 12/28/18 12/16/19 H
[2019-12-16 08:03] LABS: Glucose Point of Care 91 (65-105)
[2019-12-16] MEDS: SERTRALINE HCL 50 MG TABLET 100 MG PO (08:17)
[2019-12-16] MEDS: amLODIPine BESYLATE 5 MG TABLET PO (08:17)
[2019-12-16] MEDS: FERROUS SULFATE 324 MG TABLET PO (08:17)
[2019-12-16] MEDS: GABAPENTIN 300 MG CAPSULE PO ×3 (08:17→17:31)
[2019-12-16] MEDS: LOPERAMIDE HCL 2 MG CAPSULE PO ×2 (08:17→08:38)
[2019-12-16] MEDS: CITALOPRAM HYDROBROMIDE 20 MG TABLET PO (08:17)
[2019-12-16 08:21] LABS: Hematocrit 34.7 % (37.0-47.0); Hemoglobin 10.7 g/dL (12.0-15.0); Mean Corpuscular HGB Conc 30.8 g/dl (32-36); Mean Corpuscular Hemoglobin 28.7 pg (26-34); Mean Platelet Volume 10.2 fl (7.4-10.4); Platelet Count Result 204 k/mm3 (150-375); Red Blood Count 3.73 M/mm3 (4.2-5.4); Red Cell Distribution Width 13.9 % (11.5-14.5); White Blood Count 8.8 K/mm3 (4.5-10.0)
[2019-12-16 08:35] LABS: Anion Gap 8 mmol/L (8-16); Blood Urea Nitrogen 18 mg/dL (7-17); Calcium 9.2 mg/dL (8.4-10.2); Carbon Dioxide 26 mmol/L (22-30); Chloride 107 mmol/L (98-107); Estimated CRCL calculation 40 ml/min; Estimated Glomerular Filt Rate 45; Glucose 102 mg/dL (65-105); Magnesium 1.5 mg/dL (1.6-2.3); Potassium 4.1 mmol/L (3.4-5.0); Sodium 141 mmol/L (137-145)
--- NOTE | 2019-12-16 08:55 | PC.NURSE ---
Patient to MRI via wheelchair. IV intact.
--- NOTE | 2019-12-16 09:45 | PC.NURSE ---
Patient returned to room via wheelchair.
[2019-12-16] MEDS: MAGNESIUM SULF 2 GM/WATER 50ML 2 GM/50 ML BAG IVPB (11:25)
[2019-12-16] MEDS: ENOXAPARIN 40 MG/0.4 ML SYRINGE SUB-Q (11:27)
[2019-12-16 11:46] LABS: Glucose Point of Care 99 (65-105)
--- NOTE | 2019-12-16 15:41 | PM.IMPN ---
Progress Note: A&P Assessment and Plan (1) Syncope and collapse: Code(s): R55 - Syncope and collapse Status: Acute Assessment and Plan: -----unclear etiology but could be vasovagal with a bit of dehydration. No evidence of orthostatic changes but will check again. The ER mentions that she had a possible arrhythmia. Telemetry does not show any arrhythmia while here and echo is still pending. The patient's magnesium was 1.0 so she was given magnesium in the ER and on the floor. Will recheck tomorrow. It was noted that that the patient's EKG did initially look like it may have been atrial fibrillation but the end of the EKG strip appeared consistent with sinus rhythm and repeat EKG 10-20 minutes later appeared to be more consistent with sinus rhythm. Possible patient may have had an arrhythmia associated with her hypo magnesemia. Will await echo before discharge and monitor on tele. Will need outpt heart monitor ordered at discharge and she sees dr yoder. [facility] is now mailing them out and not placing them on them at discharge. MRI negative for stroke but cannot rule out TIA. Her Cr was elevated on admission, may have been dehydrated. Appears euvolemic now, will stop fluids. (2) Acute on chronic kidney failure: Qualifiers: Acute renal failure type: unspecified Chronic kidney disease stage: stage 3 (moderate) Chronic kidney disease stage 3 subtype: stage 3b (GFR 30-44) Qualified Code(s): N17.9 - Acute kidney failure, unspecified; N18.32 - Chronic kidney disease, stage 3b Code(s): N17.9 - Acute kidney failure, unspecified; N18.9 - Chronic kidney disease, unspecified Status: Acute Assessment and Plan: -----The patient's urine specific gravity is elevated suggesting that the patient may be hypovolemic. She did do a significant amount of house work and admits that she had not drink her usual amount of fluid. She drinks soda during the day. (3) Hypomagnesemia: Code(s): E83.42 - Hypomagnesemia Status: Acute Assessment and Plan: -----Low again today 1.5. Replaced again and will recheck tomorrow. (4) Diabetes mellitus: Code(s): E11.9 - Type 2 diabetes mellitus without complications Status: Acute Assessment and Plan: -----Last glucose 99. Continue SSI. Continue metformin at discharge once renal function improves. Time Spent With Patient Time with patient: 25 - 35 minutes Subjective Date/time seen: 12/16/19 15:41 Interval history: Pt is a 69-year-old female here for syncope. Patient was seen today and events reviewed with her. She states yesterday she was in her normal state of health but felt a little to more tired than normal. She decorated her house for [employer] and made a big dinner for her family (she did not drink alcohol during this time). After dinner, her family went home and she when out for a cigarette. During that time she started feeling like the world was spinning around her and she felt weak. She was able to walk back inside and sat on the couch and call her daughter. When the daughter arrived, the patient was unresponsive but breathing normal. She called 911. The patient does not remember anything until the ambulance arrived and remembers them. She had no chest pain during that time but had diaphoresis and chills according to the daughter. She had no loss of bowel or bladder function. She is a diabetic but no reports of hypoglycemia by EMS. EMS actually left the house and the daughter drove the patient to the ER. Patient has not had any additional symptoms while being here. She denies numbness, tingling, problems with speech, involuntary movements, problems walking, or headaches. She also denies nausea, vomiting, fevers, chills, constipation, diarrhea, chest pain, sob, or abdominal pain. Review of Systems Review of Systems: All systems reviewed & are unremarkable except as noted in HPI and below
[2019-12-16 17:01] LABS: Glucose Point of Care 87 (65-105)
[2019-12-16] MEDS: PRAVASTATIN SODIUM 20 MG TABLET 40 MG PO (20:16)
[2019-12-16] MEDS: calcitrioL 0.25 MCG CAPSULE PO (20:17)
[2019-12-16] MEDS: lisinopriL 20 MG TABLET PO (20:17)
[2019-12-16] MEDS: ANASTROZOLE (*CHEMO) 1 MG TABLET PO (20:17)
[2019-12-16 21:19] LABS: Glucose Point of Care 111 (65-105)
[2019-12-17] VITALS: PULSE 75
[2019-12-17 04:00] VITALS: BP 148/69; PULSE 75; PULSE 90; RESP 20; TEMP 36.6; O2SAT 94
[2019-12-17 05:26] VITALS: BP 127/64; BP 148/68
[2019-12-17 05:50] LABS: Hematocrit 32.2 % (37.0-47.0); Hemoglobin 9.9 g/dL (12.0-15.0); Mean Corpuscular HGB Conc 30.7 g/dl (32-36); Mean Corpuscular Hemoglobin 28.2 pg (26-34); Mean Corpuscular Volume 91.7 fl (80-100); Mean Platelet Volume 10.4 fl (7.4-10.4); Platelet Count Result 184 k/mm3 (150-375); Red Blood Count 3.51 M/mm3 (4.2-5.4); Red Cell Distribution Width 13.8 % (11.5-14.5); White Blood Count 6.9 K/mm3 (4.5-10.0)
[2019-12-17 06:09] LABS: Anion Gap 2 mmol/L (8-16); Blood Urea Nitrogen 16 mg/dL (7-17); Calcium 9.3 mg/dL (8.4-10.2); Carbon Dioxide 33 mmol/L (22-30); Chloride 106 mmol/L (98-107); Estimated CRCL calculation 44 ml/min; Estimated Glomerular Filt Rate 49; Glucose 94 mg/dL (65-105); Magnesium 1.6 mg/dL (1.6-2.3); Potassium 4.4 mmol/L (3.4-5.0); Sodium 141 mmol/L (137-145)
[2019-12-17 06:46] LABS: Thyroid Stimulating Hormone Reflex 0.959 uIU/mL (0.465-4.68)
[2019-12-17 08:06] LABS: Glucose Point of Care 85 (65-105)
[2019-12-17] MEDS: LOPERAMIDE HCL 2 MG CAPSULE 4 MG PO (08:16)
[2019-12-17] MEDS: MAGNESIUM SULF 2 GM/WATER 50ML 2 GM/50 ML BAG IVPB (08:16)
[2019-12-17] MEDS: GABAPENTIN 300 MG CAPSULE PO (08:16)
[2019-12-17] MEDS: SERTRALINE HCL 50 MG TABLET 100 MG PO (08:17)
[2019-12-17] MEDS: amLODIPine BESYLATE 5 MG TABLET PO (08:17)
[2019-12-17] MEDS: MAGNESIUM OXIDE 400 MG TABLET PO (08:17)
[2019-12-17] MEDS: ENOXAPARIN 40 MG/0.4 ML SYRINGE SUB-Q (08:17)
[2019-12-17] MEDS: CITALOPRAM HYDROBROMIDE 20 MG TABLET PO (08:17)
[2019-12-17] MEDS: FERROUS SULFATE 324 MG TABLET PO (08:17)
[2019-12-17 09:24] VITALS: PULSE 92
--- NOTE | 2019-12-17 09:35 | PM.DS ---
DS: Admitting Diagnosis Admitting Diagnosis Admitting Diagnosis: Passed out DS: Discharge Diagnosis Discharge Diagnosis (1) Syncope and collapse: Code(s): R55 - Syncope and collapse Status: Acute Assessment and Plan: Date of Admission 12/15/19 Date of Discharge/DOS: 12/17/19 Ms. Prado is a very pleasant 69yo F who presented to the ED for evaluation after a syncopal episode at home on 12/15/19. She had just eaten dinner with her children and after her children left her house, she began to feel lightheaded and felt his was spinning. She went to sit on the couch and call her daughter. By the time her daughter arrived, she was passed out on the couch. Patient does not recall these events however she is told that she did have some slurred speech at that time. Symptoms completely resolved shortly after. Patient is feeling well and at her baseline on day of discharge. Workup here included CTA head/neck as well as MRI brain which demonstrated no acute findings to explain her syncope. Magnesium was quite low at 1.0 on arrival and replaced. On arrival, she did have an EKG that evening that demonstrated a possible atrial tachycardia that converted to sinus rhythm, repeat EKG shortly after also demonstrated sinus rhythm. It is recommended that she follow-up with PCP and may be a good candidate for further evaluation with outpatient Holter monitor. Etiology of her syncope is ultimately unclear however differential includes vasovagal, cardiogenic given the hypomagnesemia and questionable brief arrhythmia, or possibly TIA. It is recommended the patient start 81 mg ASA daily for stroke risk reduction. She also has been started on oral magnesium supplementation; recheck labs in 1 week. Patient is feeling well and is hemodynamically stable discharge on 12/16/2021 with instructions to follow-up with PCP. She also has appointments coming up to see her vice president of news, Dr. Salinas, as well as her oncologist (history of breast cancer). (2) Acute on chronic kidney failure: Qualifiers: Acute renal failure type: unspecified Chronic kidney disease stage: stage 3 (moderate) Chronic kidney disease stage 3 subtype: stage 3b (GFR 30-44) Qualified Code(s): N17.9 - Acute kidney failure, unspecified; N18.32 - Chronic kidney disease, stage 3b Code(s): N17.9 - Acute kidney failure, unspecified; N18.9 - Chronic kidney disease, unspecified Status: Acute Assessment and Plan: Cr 1.5 on arrival, improved to 1.0 on day of discharge. (3) Hypomagnesemia: Code(s): E83.42 - Hypomagnesemia Status: Acute Assessment and Plan: Magnesium as low as 1.0 on arrival, replaced parenterally and orally. Discharged with oral supplementation of follow-up with PCP, repeat labs outpatient. (4) Diabetes mellitus: Code(s): E11.9 - Type 2 diabetes mellitus without complications Status: Acute Assessment and Plan: Blood sugar stable here. Resume metformin at discharge. DS: Summary Time Spent with Patient Time attestation: Total time spent providing and/or coordinating discharge services: 35 minutes Exam Narrative: Exam Narrative: General: Female resting sitting up in bedside chair in no acute distress. HEENT: Normocephalic, EOMI, oral mucosa moist. Cardiovascular: Rate and rhythm are regular. Telemetry review shows normal sinus rhythm HR 68bpm, no arrhythmias identified. Respiratory: Lungs clear to auscultation in all martell. Non-labored breathing. Abdomen: Soft, non-tender, non-distended, bowel sounds present. Extremities: Peripheral pulses intact. No edema. Neuro: Alert and oriented x4. No focal neurological deficits. Asset Analyst strength, upper and lower extremity strength appropriate and equal bilaterally. Speech is clear.
== END 2019-12-17 11:15 | disposition home or self-care (01) ==
LOC: ANHED 22:18 → ANH2MED 12-16 00:22
PROVIDERS: Physician Assistant; Admitting Provider Internal Medicine; Emergency Provider General Practice; PCP Internal Medicine; Visit Provider Physician Assistant
DX: R55 Syncope and collapse (principal); I12.9 Hypertensive chronic kidney disease with stage 1 through stage 4 chronic kidney disease, or unspecified chronic kidney disease; N17.9 Acute kidney failure, unspecified; N18.32 Chronic kidney disease, stage 3b; E83.42 Hypomagnesemia; E11.22 Type 2 diabetes mellitus with diabetic chronic kidney disease; E11.42 Type 2 diabetes mellitus with diabetic polyneuropathy; F17.210 Nicotine dependence, cigarettes, uncomplicated; Z79.4 Long term (current) use of insulin; Z85.3 Personal history of malignant neoplasm of breast
CPT/HCPCS: 36415; 70496; 70498; 70553; 71045; 80048; 81001; 81025; 82948; 83735; 84443; 84484; 85025; 85027; 85610; 85730; 93005; 93306; 96361; 96365; 96366; 96372; 96376; 99285; A9270; A9577; G0378; J1650; J3475; J7030; J7120; Q9967

== ENCOUNTER 2019-12-25 11:53 | Outpatient (CLI) | payer MEDICARE, SELFPAY ==
[2019-12-25 12:47] LABS: Anion Gap 7 mmol/L (8-16); Blood Urea Nitrogen 18 mg/dL (7-17); Calcium 9.6 mg/dL (8.4-10.2); Carbon Dioxide 33 mmol/L (22-30); Chloride 101 mmol/L (98-107); Estimated Glomerular Filt Rate 55; Glucose 85 mg/dL (65-105); Magnesium 1.1 mg/dL (1.6-2.3); Potassium 4.7 mmol/L (3.4-5.0); Sodium 141 mmol/L (137-145)
--- NOTE | 2020-01-01 11:04 | P.PCNHOL_ITS ---
Holter/Event Monitor Holter/Event Monitor Date of procedure: 01/01/20 Procedure Type: 48 hour Holter monitor Diagnosis: transient cerebral ischemic attack Indications: same Image/Tracing Quality: favorable Finding: the basic cardiac rhythm is sinus with normal RI QRS and QT interval. The heart rate varies from a minimum of 63 to a maximum of 129. The average heart rate was 91. There were no significant pauses or abnormalities of AV conduction observed. The longest RR interval was 1.1 seconds. Supraventricular ectopic activity consisted of occasional PACs occurring at a rate of just under 3 complexes per hour. There were several brief runs of supraventricular tachycardia the longest of which was only 4 beats in duration there were 2 other runs that were 3 beats in duration. There were no sustained runs of SVT and there were no examples of atrial fibrillation ventricular ectopic activity was rare single PVCs occur at a rate of less than 1 beat per hour. All these were in the form of single beats there were no ventricular couplets or runs. The patient diary that was returned for review does not demonstrate any cardiac symptoms Conclusion: Essentially unremarkable 48 hour Holter monitor demonstrating no clinically significant arrhythmias and no evidence of paroxysmal atrial fibrillation which is the presumptive reason for this examination Suresh Geiger MD [facility]
== END 2019-12-25 11:54 | disposition home or self-care (01) ==
PROVIDERS: PCP Internal Medicine; Visit Provider Physician Assistant
DX: N17.9 Acute kidney failure, unspecified (principal); N18.9 Chronic kidney disease, unspecified; E83.42 Hypomagnesemia; G45.9 Transient cerebral ischemic attack, unspecified
CPT/HCPCS: 36415; 80048; 83735; 93225; 93226

== ENCOUNTER 2020-02-13 12:48 | Outpatient (CLI) | payer MEDICARE, SELFPAY ==
--- NOTE | ~2020-02-13 | MM_ITS ---
EXAMINATION: MM diagnostic mirella BI w patrick HISTORY: Status post 2018 left partial mastectomy, radiation treatment and chemotherapy for left jer[address] st cancer. History of 2018 right breast reduction as well. TECHNIQUE: ML, MLO and cc 3-D tomosynthesis images of both breasts were performed and synthetic 2-D i mages were generated. CAD analysis was submitted and interpreted. COMPARISON: 09/30/2019 diagnostic left digital mammogram 02/28/2019bilateral diagnostic digital mammogram 10/19/2017 diagnostic left digital mammogram and limited left breast ultrasound 10/11/2017, 02/22/2016bilateral digital screening mammogram examinations BREAST PARENCHYMAL COMPOSITION: There are scattered areas of fibroglandular density. FINDINGS: Surgical clips and volume loss of the left lung, consistent with prior partial left mastect kostas for breast cancer. No suspicious mass or architectural distortion, malignant calcification, skin thickening or retracti on or significant new or developing density is detected. IMPRESSION: 1. Status post left partial mastectomy for left breast cancer 2. No mammographic evidence of malignancy 3. Routine annual mammographic screening at a minimum is recommended, with any additional imaging fadi dies as clinically appropriate BI-RADS Category 2: Benign finding(s). Reviewed, dictated and finalized at location A. ON MANIFEST CLERK IMPRESSION: 1. Status post left partial mastectomy for left breast cancer 2. No mammographic evidence of malignancy 3. Routine annual mammographic screening at a minimum is recommended, with any additional imaging studies as clinically appropriate BI-RADS Category 2: Benign finding(s).
== END 2020-02-13 12:49 | disposition home or self-care (01) ==
LOC: ANHIMG 12:50
PROVIDERS: PCP Internal Medicine; Visit Provider Internal Medicine Hematology & Oncology
DX: C50.412 Malignant neoplasm of upper-outer quadrant of left female breast (principal); Z17.0 Estrogen receptor positive status [ER+]
CPT/HCPCS: 77062; 77066; G0279

== ENCOUNTER 2021-02-11 10:23 | Outpatient (CLI) | payer MEDICARE, SELFPAY ==
--- NOTE | ~2021-02-11 | MM_ITS ---
EXAMINATION: MM screening mirella BI w patrick HISTORY: Screening mammogram TECHNIQUE: Craniocaudal and mediolateral oblique 3-D tomosynthesis images were obtained and synthetic 2-D images were generated. CAD analysis was submitted and interpreted. COMPARISON: 03/01/2020 bilateral diagnostic mammogram 10/08/2019 diagnostic left mammogram 02/28/2018 bilateral diagnostic mammogram BREAST PARENCHYMAL COMPOSITION: There are scattered areas of fibroglandular density. FINDINGS: Postoperative changes of upper mid outer left breast; history of left partial mastectomy fo r breast cancer in 2018, in addition to breast reduction surgery. There is no evidence of suspicious mass, calcification, or architectural distortion to suggest malign brett in either breast. There has been no suspicious interval change. IMPRESSION: 1. No mammographic evidence of malignancy. 2. Recommend routine screening mammography in one year. BI-RADS Category 2: Benign Reviewed, dictated and finalized at location A. ISHMENT SPECIALIST
== END 2021-02-11 10:24 | disposition home or self-care (01) ==
PROVIDERS: PCP Internal Medicine; Visit Provider Internal Medicine Hematology & Oncology
DX: Z12.31 Encounter for screening mammogram for malignant neoplasm of breast (principal)
CPT/HCPCS: 77063; 77067

== ENCOUNTER 2022-02-14 10:48 | Outpatient (CLI) | payer MEDICARE, SELFPAY ==
--- NOTE | ~2022-02-14 | MM_ITS ---
EXAMINATION: MM screening mirella BI w patrick HISTORY: Screening mammogram, history of left breast cancer TECHNIQUE: Craniocaudal and mediolateral oblique 3-D tomosynthesis images were obtained and synthetic 2-D images were generated. CAD analysis was submitted and interpreted. COMPARISON: 02/11/2021, 02/13/2020, 10/08/2019, 02/28/2019 BREAST PARENCHYMAL COMPOSITION: There are scattered areas of fibroglandular density. FINDINGS: Stable lumpectomy changes are noted in the left breast. No suspicious mass, calcification, or architectural distortion are identified in either breast to suggest malignancy. There has been no suspicious interval change. IMPRESSION: 1. No mammographic evidence of malignancy. 2. Recommend routine screening mammography in one year. BI-RADS Category 2: Benign finding(s). Reviewed, dictated and finalized at location A. TTER SETTER UP
== END 2022-02-14 10:49 | disposition home or self-care (01) ==
PROVIDERS: PCP Internal Medicine; Visit Provider Internal Medicine Hematology & Oncology
DX: Z12.31 Encounter for screening mammogram for malignant neoplasm of breast (principal)
CPT/HCPCS: 36415; 77063; 77067; 80053; 85025; 86300

== ENCOUNTER 2022-10-29 10:56 | Outpatient (CLI) | payer MEDICARE, SELFPAY ==
--- NOTE | ~2022-10-29 | DEXA_ITS ---
Bone Density Report Name: TRI HANLEY Age: 72 Sex: Female Ethnicity: White Date of : 1950 Indication: postmenopausal; screening for osteoporosis; height loss; cancer; hysterectomy; Referring Provider: DORYS HART Study: Bone densitometry was performed. Exam Date: October 29, 2022 Accession number: [id number] Bone Density: Region BMD T-score Z-score Classification AP Spine(L1-L4) 1.245 1.8 4.0 Normal Femoral Neck (Left) 0.818 -0.3 1.6 Normal Total Hip (Left) 0.988 0.4 1.9 Normal Femoral Neck (Right) 0.817 -0.3 1.6 Normal Total Hip (Right) 1.038 0.8 2.3 Normal Total Hip Mean 1.013 0.6 2.1 Normal World Health Organization criteria for BMD impression classify patients as: Normal (T-score at or above -1.0), Osteopenia (T-score between -1.0 and -2.5), or Osteoporosis (T-score at or below -2.5). 10-year Fracture Risk: FRAX not reported because: All T-scores for Spine Total, Hip Total, Femoral Neck at or above -1.0 Previous Exams: Region Exam Age BMD T-score BMD Change BMD Change Date g/cm2 vs Baseline vs Previous AP Spine (L1-L4) 10/29/2022 72 1.245 1.8 0.016 (1.3%)# -0.031 (-2.4%) 07/03/2019 68 1.276 2.1 0.047 (3.8%)# -0.002 (-0.1%) 02/16/2015 64 1.278 2.1 0.049 (4.0%)# 0.049 (4.0%)# 12/28/2012 62 1.229 1.7 Total Hip(Left) 10/29/2022 72 0.988 0.4 -0.200 (-16.8% -0.098 (-9.0%) 07/03/2019 68 1.087 1.2 -0.101 (-8.5%) -0.021 (-1.9%) 02/16/2015 64 1.108 1.4 -0.080 (-6.7%) -0.080 (-6.7%) 12/28/2012 62 1.188 2.0 Total Hip(Right) 10/29/2022 72 1.038 0.8 -0.063 (-5.8%) 0.001 (0.1%) 07/03/2019 68 1.037 0.8 -0.064 (-5.8%) -0.046 (-4.2%) 02/16/2015 64 1.083 1.2 -0.018 (-1.7%) -0.018 (-1.7%) 12/28/2012 62 1.101 1.3 *Denotes significance at 95% confidence level, LSC for AP Spine = 0.022 g/cm2, LSC for Total Hip = 0.027 g/cm2 # Denotes dissimilar scan types or analysis methods Clinical Information Provided by Patient: Has used the following medications: Vitamin D, Calcium Has the following medical conditions: Cancer, Hysterectomy Patient maximum height was 62 No regular weight bearing exercise Drinks caffeinated beverages Onset of menses at age 16 Number of children 2 Impression: The patient has normal bone mass. The BMD for the AP Spine (L1-L4) decreased, changing by -2.4% since the last DXA exam. The BMD for the Total Hip(Left) decreased, cherry
== END 2022-10-29 10:57 | disposition home or self-care (01) ==
PROVIDERS: PCP Internal Medicine; Visit Provider Internal Medicine Hematology & Oncology
DX: M85.88 Other specified disorders of bone density and structure, other site (principal)
CPT/HCPCS: 77080

== ENCOUNTER 2023-02-15 10:12 | Outpatient (CLI) | payer MEDICARE, SELFPAY ==
--- NOTE | ~2023-02-15 | MM_ITS ---
EXAMINATION: MM screening mirella BI w patrick HISTORY: Screening mammogram, history of left breast cancer TECHNIQUE: Craniocaudal and mediolateral oblique 3-D tomosynthesis images were obtained and synthetic 2-D images were generated. CAD analysis was submitted and interpreted. COMPARISON: 02/14/2022, 02/11/2021, 02/13/2020 BREAST PARENCHYMAL COMPOSITION: There are scattered areas of fibroglandular density. FINDINGS: RIGHT BREAST: No suspicious mass, calcification, or architectural distortion are identified to sugges t malignancy. There has been no suspicious interval change. LEFT BREAST: Lumpectomy changes are noted in the left breast. An asymmetry is present in the far post erior third of the upper outer quadrant of the breast in the region of the axilla approximately 12 cm from the nipple on the mediolateral oblique view. IMPRESSION: 1. Left breast asymmetry. 2. Additional mammographic views and possible breast ultrasound are recommended. BI-RADS Category 0: Incomplete: Needs additional imaging evaluation. Reviewed, dictated and finalized at location A. TYPE MECHANIC IMPRESSION: 1. Left breast asymmetry. 2. Additional mammographic views and possible breast ultrasound are recommended . BI-RADS Category 0: Incomplete: Needs additional imaging evaluation.
== END 2023-02-15 10:13 | disposition home or self-care (01) ==
LOC: ANHIMG 10:15
PROVIDERS: PCP Internal Medicine; Visit Provider Registered Nurse
DX: Z12.31 Encounter for screening mammogram for malignant neoplasm of breast (principal); R92.8 Other abnormal and inconclusive findings on diagnostic imaging of breast
CPT/HCPCS: 77063; 77067

== ENCOUNTER → 2023-02-20 09:21 | Outpatient (CLI) | payer MEDICARE, SELFPAY ==
--- NOTE | ~2023-02-20 | MMUS_ITS ---
EXAMINATION: MM diagnostic mirella LT w patrick, US breast LT limited HISTORY: Follow-up left breast asymmetry TECHNIQUE: Additional 3-D tomosynthesis images of the left breast were performed and synthetic 2-D im ages were generated. CAD analysis was submitted and interpreted. High resolution Limited left breast ultrasound was performed. COMPARISON: Comparison to multiple prior studies sequentially, with oldest reviewed study dated 02/10. BREAST PARENCHYMAL COMPOSITION: Breast composed of scattered areas of fibroglandular density FINDINGS: MAMMOGRAPHIC FINDINGS: There are surgical changes in the upper aspect of the left breast. There is a prior report overlying the left breast superiorly on the 02/28/2019 study. The area of asymmetry is less apparent with spot compression and mediolateral views. ULTRASOUND: Limited left breast ultrasound: There is a normal-appearing 1.6 cm lymph node, likely reactive. Also in the axillary region there is an ill-defined area of decreased echogenicity without discrete mass, most likely scarring/fibrosis from prior procedure/surgery. IMPRESSION: 1. Probable benign findings of the left breast. 2. Recommend 6 month follow-up diagnostic left mammogram and left breast ultrasound BI-RADS category 3, probably benign findings. Reviewed, dictated and finalized at location A. ECT DEVELOPMENT COORDINATOR IMPRESSION: 1. Probable benign findings of the left breast. 2. Recommend 6 month follow-up diagnostic left mammogram and left breast ultras ound BI-RADS category 3, probably benign findings.
== END ==
PROVIDERS: PCP Internal Medicine Hematology & Oncology; Referring Provider Internal Medicine; Visit Provider Registered Nurse
DX: C50.912 Malignant neoplasm of unspecified site of left female breast (principal); Z85.3 Personal history of malignant neoplasm of breast; R92.8 Other abnormal and inconclusive findings on diagnostic imaging of breast
CPT/HCPCS: 76642; 77061; 77065; G0279

== ENCOUNTER 2023-08-21 09:59 | Outpatient (CLI) | payer MEDICARE, SELFPAY ==
--- NOTE | ~2023-08-21 | MMUS_ITS ---
EXAMINATION: MM diagnostic mirella LT w patrick, US breast LT limited HISTORY: Follow-up left breast mass TECHNIQUE: Additional 3-D tomosynthesis images of the left breast were performed and synthetic 2-D im ages were generated. CAD analysis was submitted and interpreted. High resolution Limited left breast ultrasound was performed. COMPARISON: Comparison to multiple prior studies sequentially, with oldest reviewed study dated 10/07. BREAST PARENCHYMAL COMPOSITION: Not dense: There are scattered areas of fibroglandular density. FINDINGS: MAMMOGRAPHIC FINDINGS: There are no suspicious masses, calcifications or architectural distortion in the left breast to sugg est malignancy. ULTRASOUND: Limited left breast ultrasound: Normal heterogeneous echotexture without focal solid or cystic mass. IMPRESSION: 1. No evidence for malignancy in the left breast. 2. Routine yearly screening mammogram and regular clinical breast examination are recommended. BI-RADS Category 1: Negative Reviewed, dictated and finalized at location B. IMPRESSION: 1. No evidence for malignancy in the left breast. 2. Routine yearly screening mammogram and regular clinical breast examination a re recommended. BI-RADS Category 1: Negative
== END 2023-08-21 10:00 | disposition home or self-care (01) ==
PROVIDERS: PCP Internal Medicine Hematology & Oncology; Visit Provider Internal Medicine Hematology & Oncology
DX: R92.8 Other abnormal and inconclusive findings on diagnostic imaging of breast (principal); C50.412 Malignant neoplasm of upper-outer quadrant of left female breast; Z17.0 Estrogen receptor positive status [ER+]
CPT/HCPCS: 76642; 77061; 77065; G0279

== ENCOUNTER 2023-08-28 13:49 | Outpatient (CLI) | payer MEDICARE, SELFPAY ==
[2023-08-28 14:18] LABS: Basophils Absolute Auto 0.1 K/mm3 (0.0-0.1); Basophils Percent Auto 0.7 % (0.2-1.2); Eosinophils Absolute Auto 0.3 K/mm3 (0-0.3); Hematocrit 36.3 % (37.0-47.0); Hemoglobin 11.2 g/dL (12.0-15.0); Immature Granulocyte Absolute 0.02 K/mm3 (0.00-0.031); Immature Granulocyte Percent A 0.2 % (0-0.5); Lymphocytes Absolute Auto 2.28 K/mm3 (0.9-3.2); Lymphocytes Percent Auto 25.4 % (18.3-44.2); Mean Corpuscular HGB Conc 30.9 g/dl (32-36); Mean Corpuscular Hemoglobin 29.6 pg (26-34); Mean Platelet Volume 9.8 fl (7.4-10.4); Monocytes Absolute Auto 0.7 K/mm3 (0.1-0.6); Monocytes Percent Auto 8.2 % (2.6-8.5); Neutrophils Absolute Auto 5.6 K/mm3 (1.3-6.7); Neutrophils Percent Auto 62.5 % (45.5-73.1); Platelet Count Result 206 k/mm3 (150-375); Red Blood Count 3.78 M/mm3 (4.2-5.4); Red Cell Distribution Width 13.6 % (11.5-14.5)
[2023-08-28 15:23] LABS: Alanine Aminotransferase 28 U/L (6-35); Albumin Level 4.3 g/dL (3.5-5.1); Alkaline Phosphatase 99 U/L (38-126); Anion Gap 8 mmol/L (4-12); Aspartate Amino Transferase 21 U/L (14-36); Bilirubin,Total 0.5 mg/dL (0.2-1.3); Blood Urea Nitrogen 26 mg/dL (7-17); Calcium 9.9 mg/dL (8.4-10.2); Carbon Dioxide 29 mmol/L (22-30); Chloride 104 mmol/L (98-107); Estimated Glomerular Filt Rate 34; Glucose 126 mg/dL (65-110); Potassium 4.9 mmol/L (3.4-5.0); Sodium 141 mmol/L (137-145)
[2023-08-28 15:30] LABS: Immunoglobulin A 181 mg/dL (70-400); Immunoglobulin G 764 mg/dL (700-1600); Immunoglobulin M 41 mg/dL (40-230)
[2023-08-30 02:29] LABS: Protein, Total 6.6 g/dL (6.1-8.1)
[2023-08-30 04:23] LABS: CA 15-3 20 U/mL (<32)
[2023-08-30 12:28] LABS: Kappa\\Lambda Light Chains 2.45 (0.26-1.65); Lambda Light Chain 19.9 mg/L (5.7-26.3)
[2023-08-30 15:09] LABS: Albumin 3.6 g/dL (3.8-4.8); Alpha 1 Globulin 0.3 g/dL (0.2-0.3); Beta 1 Globulin 0.5 g/dL (0.4-0.6); Gamma Globulin 0.8 g/dL (0.8-1.7)
== END 2023-08-28 13:50 | disposition home or self-care (01) ==
PROVIDERS: PCP Internal Medicine Hematology & Oncology; Visit Provider Internal Medicine Hematology & Oncology
DX: D72.9 Disorder of white blood cells, unspecified (principal); C50.412 Malignant neoplasm of upper-outer quadrant of left female breast; Z17.0 Estrogen receptor positive status [ER+]
CPT/HCPCS: 36415; 80053; 82784; 83883; 84155; 84165; 85025; 86300

== ENCOUNTER 2024-03-11 11:17 | Outpatient (CLI) | payer MEDICARE, SELFPAY ==
[2024-03-11 11:33] LABS: Basophils Absolute Auto 0.1 K/mm3 (0.0-0.1); Basophils Percent Auto 0.6 % (0.2-1.2); Eosinophils Absolute Auto 0.3 K/mm3 (0-0.3); Eosinophils Percent Auto 3.3 % (0-4.4); Hematocrit 38.7 % (37.0-47.0); Hemoglobin 11.9 g/dL (12.0-15.0); Immature Granulocyte Absolute 0.03 K/mm3 (0.00-0.031); Immature Granulocyte Percent A 0.4 % (0-0.5); Lymphocytes Absolute Auto 1.66 K/mm3 (0.9-3.2); Lymphocytes Percent Auto 21.2 % (18.3-44.2); Mean Corpuscular HGB Conc 30.7 g/dl (32-36); Mean Corpuscular Hemoglobin 29.2 pg (26-34); Mean Corpuscular Volume 94.9 fl (80-100); Mean Platelet Volume 9.8 fl (7.4-10.4); Monocytes Absolute Auto 0.6 K/mm3 (0.1-0.6); Monocytes Percent Auto 7.3 % (2.6-8.5); Neutrophils Absolute Auto 5.3 K/mm3 (1.3-6.7); Neutrophils Percent Auto 67.2 % (45.5-73.1); Platelet Count Result 219 k/mm3 (150-375); Red Blood Count 4.08 M/mm3 (4.2-5.4); Red Cell Distribution Width 13.2 % (11.5-14.5); White Blood Count 7.8 K/mm3 (4.5-10.0)
[2024-03-11 13:26] LABS: Alanine Aminotransferase 31 U/L (6-35); Albumin Level 4.2 g/dL (3.5-5.1); Alkaline Phosphatase 89 U/L (38-126); Anion Gap 5 mmol/L (4-12); Aspartate Amino Transferase 37 U/L (14-36); Bilirubin,Total 0.4 mg/dL (0.2-1.3); Blood Urea Nitrogen 18 mg/dL (7-17); Calcium 9.4 mg/dL (8.4-10.2); Carbon Dioxide 28 mmol/L (22-30); Chloride 108 mmol/L (98-107); Estimated Glomerular Filt Rate 40; Glucose 145 mg/dL (65-110); Sodium 141 mmol/L (137-145)
[2024-03-13 04:23] LABS: CA 15-3 22 U/mL (<32)
== END 2024-03-11 11:18 | disposition home or self-care (01) ==
LOC: ANHLAB 11:19
PROVIDERS: PCP Internal Medicine; Visit Provider Internal Medicine Hematology & Oncology
DX: C50.412 Malignant neoplasm of upper-outer quadrant of left female breast (principal); Z17.0 Estrogen receptor positive status [ER+]
CPT/HCPCS: 36415; 80053; 85025; 86300

== ENCOUNTER 2024-09-11 15:17 | Outpatient (CLI) | payer MEDICARE, SELFPAY ==
--- OUTSIDE RECORDS SUMMARY | 2024-09-11 15:21 | XMS_ITS | Data Portability ---
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 Manufacturing Production Technician variances may occur. Despite proofreading, typographical errors may occur. Occasional wrong-word or '[id number]' substitutions may have occurred due to the inherent limitations of voice recording. Read the chart carefully and recognize, using context, where substitutions have occurred. Not available 04/04/2024 14:40:11 08/01/2024 08/01/2024 This note is dictated and transcribed by [employer]. Manufacturing Production Technician variances may occur. Despite proofreading, typographical errors may occur. Occasional wrong-word or 'xghfy-[id number]' substitutions may have occurred due to the inherent limitations of voice recording. Read the chart carefully and recognize, using context, where substitutions have occurred. Not available 08/01/2024 13:10:08 Plan of Treatment Reminders Order Date Submit Date Provider Last Modified By Organization Details Last Modified Time Details Appointments None recorded. Lab PTH (parathyro id hormone), intact, serum or plasma [address] [facility], [address] [place], [address], 15:01:15 phosphorus , serum or plasma 11/2023 [facility], [address] [place], [address], 4 14:57:43 uric acid, serum or plasma 2023 [facility], [address] [place], [address], 4 14:57:45 vitamin D, 25-hydroxy , total, serum 2023 [email or web address] [facility], [address] [place], [address], 16:09:55 lipid panel, serum 2023 [facility], [address] [place], [address], 14:57:35 CMP, serum or plasma 2023 [facility], [address] [place], [address], 14:57:41 T4, free, serum 2023 [facility], [address] [place], [address], 4 15:12:29 TSH, serum or plasma 2023 [facility], [address] [place], [address], 4 15:22:15 CBC w/ auto diff 2023 [facility], [address] [place], [address], 4 14:47:12 Referral None recorded. Procedures None recorded. Surgeries None recorded. Imaging US, duplex, arterial, lower extremity 2024 025 [email or web address] [facility] ([facility]), [address], [place], [address], 5 08:23:58 Medication Orders glipizide 2.5 mg tablet 2024 025 [email or web address] [facility] #[id number], [address], [place], [address], 09:44:36 Patient TargetsNo targets recorded. Patient Instructions Encounter Date Encounter Id Patient Instructions Last Modified By Organization Details Last Modified Time 02/05/2024 [id number] dementia rating scale-2* [email or web address] Not available 02/05/2024 11:48:47 alcohol misuse* [email or web address] Not available 02/05/2024 11:48:48 depression screening* Not available 02/05/2024 11:48:47 Timed Up and Go test (TUG)* [email or web address] Not available 02/05/2024 11:48:48 multi-dimensiona l health assessment questionnaire* [email or web address] Not available 02/05/2024 11:48:48 Personalized [facility] Plan and Screening Recommendations Advance Directives - Do you have one? Yes Advance Directives - Do we have your advance directive on file in your health record? No, please bring in a copy at your earliest convenience Primary Prevention/Interven tion (prevents or decreases the chance of common diseases from occurring) Smoking Risk: Non Smoker Alcohol Misuse Screening: Negative Weight: Overweight try to lose 10% of your body weight Physical activity: Need more exercise/physical activity Nutrition: Average Eat heart healthy diet Fall Risk (screened today): Low Vaccines Pneumococcal: No further needed Influenza: Recommended today Chronic Disease Risks Stroke: Intermediate Risk Active diagnosis, Continue current treatment plan Heart Attack: Intermediate Risk Active diagnosis, Continue current treatment plan Clogging of the Arteries: Intermediate Risk Active diagnosis, Continue current treatment plan Diabetes: Intermediate Risk Active diagnosis, Continue current treatment plan Secondary Prevention/Interven tion (detects treatable diseases before they may cause symptoms, disability, or ) Breast Cancer Screening with mammogram: up to date Cervical/Uterine/Ov nikkie Cancer Screening: No screening necessary Osteoporosis Screening: up to date Date Screening Last Performed: Colon Cancer Screening: Colonoscopy due 2028 Date Screening Last Performed: _2018___ Eye Disease Screening: Your next exam in: goes every 2 yrs Dementia Risk: Low I have no recommendations Depression Screening: Negative I have no recommendations [email or web address] Not available 02/05/2024 11:32:53 Medicare wellnes s evaluation risk assessment stable. Follow-up for essential hypertension, hyperlipidemia, chronic kidney disease stage IIIA and obesity class two all clinically stable. Check blood work consisting of CBC, CMP, lipid, thyroid and renal functions consisting of also a PTH level and phosphorus. Continue on current Rx and follow-up in four months Follow Up: 4 Months Approximate Date: 06/04/2024 Portions of the record may have been created with voice recognition software. Occasional wrong-word or s ound-a-like substitutions may have occurred due to the inherent limitations of voice recognition software. Read the chart carefully and recognize, using context, where substitutions have occurred. Created: Марина Londono M.D. 02.05.2024 10:48 AM [email or web address] Not available 02/05/2024 11:48:13 04/04/2024 [id number] (ROBERT) ankle brachial index* - bilateral [email or web address] Not available 06/10/2024 08:09:50 diabetic foot ca re education Not available 04/04/2024 14:40:41 diabetic neuropa thy education Not available 04/04/2024 14:40:41 05/09/2024 [id number] Follow-up hypertension, hyperlipidemia, type 2 diabetes, chronic kidney disease stage 3 and obesity class two. Has a lumbar radiculopathy on the left. Will give a trial of a Medrol Dosepak as well as a dose of baclofen and see there is any improvement. Try to set up for MRI of the lumbar spine without contrast. Additional Orders - Directives - Recommendations 1. MRI of the lumbar spine without contrast for lumbar radiculopathy and spinal stenosis and history of breast cancer Keep Appointment: Mon 10:20 AM Raymond Portions of record are template driven. When necessary additional context will be provided. Additionally some portions have been created with voice recognition software. Occasional wrong-word or s ound-a-like substitutions may have occurred due to the inherent limitations of voice recognition software. Read the chart carefully and recognize, using context, where substitutions may have occurred. Created: Марина Londono M.D. 05.09.2024 02:30 PM Not available 05/09/2024 15:30:51 06/17/2024 [id number] Follow-up nixon garcia hypertension, hyperlipidemia, and type 2 diabetes clinically stable hemoglobin A1c still running around 7.5. Is currently taking the Ozempic as well as the Farxiga. Will add some glipizide 2.5 mg Twice daily and have the patient check her fasting blood sugars. May need increase if necessary. Follow-up in four months Follow Up: 4 Months Approximate Date: 10/15/2024 Portions of record are template driven. When necessary additional context will be provided. Additionally some portions have been created with voice recognition software. Occasional wrong-word or s ound-a-like substitutions may have occurred due to the inherent limitations of voice recognition software. Read the chart carefully and recognize, using context, where substitutions may have occurred. Created: Марина Londono M.D. 06.17.2024 03:17 PM [email or web address] Not available 06/17/2024 16:17:38 Reason for Referral None Reported. Results Created Date Observation Date Name Description Value Unit Range Abnormal Flag Note LastModifiedBy Organization Detail LastModifiedTime 02/05/20 24 02/05/2024 CBC/C OMPLE TE BLD COUNT W/DIF F white blood cells 7.7 x10'3 /uL 4.2-10 .8 Not Available [facility] (Lab) [address] [place], [address], 02/05/2024 14:47:11 02/05/20 24 02/05/2024 CBC/C OMPLE TE BLD COUNT W/DIF F red blood cells 3.96 x10'6 /uL 3.80-5 .20 Not Available [facility] (Lab) [address] [place], [address], 02/05/2024 14:47:11 02/05/20 24 02/05/2024 CBC/C OMPLE TE BLD COUNT W/DIF F hemoglobin 11.7 g/dL 12.0-1 5.6 low Not Available [facility] (Lab) [address] [facility] [place], [address], 02/05/2024 14:47:11 02/05/20 24 02/05/2024 CBC/C OMPLE TE BLD COUNT W/DIF F hematocrit 39.0 % 35.7-4 5.7 Not Available [facility] (Lab) [address] [place], [address], 02/05/2024 14:47:11 02/05/2002/05/2024 CBC/C OMPLE TE BLD COUNT W/DIF F mean red cell volume 98.5 fL 82.0-9 9.0 Not Available [facility] (Lab) [address] [place], [address], 02/05/2024 14:47:11 02/05/2002/05/2024 CBC/C OMPLE TE BLD COUNT W/DIF F mean red cell hemoglobin 29.5 pg 27.0-3 3.0 Not Available [facility] (Lab) [address] [place], [address], 02/05/2024 14:47:11 02/05/20 24 02/05/2024 CBC/C OMPLE TE BLD COUNT W/DIF F mean RBC HGB concentratio n 30.0 g/dL 31.0-3 6.0 low Not Available [facility] (Lab) [address] [place], [address], 02/05/2024 14:47:11 02/05/20 24 02/05/2024 CBC/C OMPLE TE BLD COUNT W/DIF F red cell distribution width 13.1 % 11.8-1 5.5 Not Available [facility] (Lab) [address] [place], [address], 02/05/2024 14:47:11 02/05/20 24 02/05/2024 CBC/C OMPLE TE BLD COUNT W/DIF F platelets 232 x10'3 /uL 150-40 0 Not Available [facility] (Lab) [address] [place], [address], 02/05/2024 14:47:11 02/05/2002/05/2024 CBC/C OMPLE TE BLD COUNT W/DIF F mean platelet volume 10.9 fL 9.0-12 .4 Not Available [facility] (Lab) [address] [place], [address], 02/05/2024 14:47:11 02/05/2002/05/2024 CBC/C OMPLE TE BLD COUNT W/DIF F neutrophils 60.0 % 39.0-7 2.0 Not Available [facility] (Lab) [address] [place], [address], 02/05/2024 14:47:11 02/05/2002/05/2024 CBC/C OMPLE TE BLD COUNT W/DIF F lymphocytes 27.3 % 16.0-4 7.0 Not Available [facility] (Lab) [address] [place], [address], 02/05/2024 14:47:11 02/05/2002/05/2024 CBC/C OMPLE TE BLD COUNT W/DIF F monocytes 9.4 % 5.0-12 .0 Not Available [facility] (Lab) [address] [place], [address], 02/05/2024 14:47:11 02/05/2002/05/2024 CBC/C OMPLE TE BLD COUNT W/DIF F eosinophils 2.5 % 1.0-7. 0 Not Available [facility] (Lab) [address] [place], [address], 02/05/2024 14:47:11 02/05/2002/05/2024 CBC/C OMPLE TE BLD COUNT W/DIF F basophils 0.4 % 0.0-2. 0 Not Available [facility] (Lab) [address] [place], [address], 02/05/2024 14:47:11 02/05/20 24 02/05/2024 CBC/C OMPLE TE BLD COUNT W/DIF F immature granulocytes 0.4 % 0.00-0 .50 Not Available [facility] (Lab) [address] [place], [address], 02/05/2024 14:47:11 02/05/2002/05/2024 CBC/C OMPLE TE BLD COUNT W/DIF F neutrophils, absolute count 4.64 x10'3 /uL 1.5-8. 0 Not Available [facility] (Lab) [address] [place], [address], 02/05/2024 14:47:11 02/05/20 24 02/05/2024 CBC/C OMPLE TE BLD COUNT W/DIF F lymphocytes, absolute count 2.11 x10'3 /uL 1.07-3 .43 Not Available [facility] (Lab) [address] [place], [address], 02/05/2024 14:47:11 02/05/20 24 02/05/2024 CBC/C OMPLE TE BLD COUNT W/DIF F monocytes, absolute count 0.73 x10'3 /uL 0.29-0 .99 Not Available [facility] (Lab) [address] [place], [address], 02/05/2024 14:47:11 02/05/20 24 02/05/2024 CBC/C OMPLE TE BLD COUNT W/DIF F eosinophils, absolute count 0.19 x10'3 /uL 0.02-0 .53 Not Available [facility] (Lab) [address] [place], [address], 02/05/2024 14:47:11 02/05/20 24 02/05/2024 CBC/C OMPLE TE BLD COUNT W/DIF F basophils, absolute count 0.03 x10'3 /uL 0.01-0 .08 Not Available [facility] (Lab) [address] [place], [address], 02/05/2024 14:47:11 02/05/20 24 02/05/2024 CBC/C OMPLE TE BLD COUNT W/DIF F immature granulocytes ,absolute 0.03 x10'3 /uL 0.00-0 .05 Not Available [facility] (Lab) [address] [place], [address], 02/05/2024 14:47:11 02/05/20 24 02/05/2024 CBC/C OMPLE TE BLD COUNT W/DIF F nucleated red blood cells 0.0 % -0 Not Available [facility] (Lab) [address] [place], [address], 02/05/2024 14:47:11 02/05/20 24 02/05/2024 CBC/C OMPLE TE BLD COUNT W/DIF F NRBC# 0.00 x10'3 /uL Not Available [facility] (Lab) [address] [place], [address], 02/05/2024 14:47:11 02/05/20 24 02/05/2024 LIPID PANEL cholesterol 123 mg/dL 140-19 9 low NIH KEVIN NSUS RECOM MENDA TION FOR CECILY STERO L: ADULT CHILD LOW RISK: <200 <170 BORDE RLINE : <200- 239 ----- HIGH RISK: >240 >200 Not Available [facility] (Lab) [address] [place], [address], 02/05/2024 14:57:35 02/05/20 24 02/05/2024 LIPID PANEL triglyceride s 133 mg/dL 0-150 NIH KEVIN NSUS REPOR T RECOM MENDA TION FOR TRIGL YCERI KUMAR: ADULT CHILD LOW RISK: <150 ----- BODER LINE: 150-1 99 ----- HIGH RISK: >200 ----- Not Available [facility] (Lab) [address] [place], [address], 02/05/2024 14:57:35 02/05/20 24 02/05/2024 LIPID PANEL HDL cholesterol 46 mg/dL 40- Not Available [facility] (Lab) [address] [place], [address], 02/05/2024 14:57:35 02/05/2002/05/2024 LIPID PANEL LDL cholesterol, calculated 50 mg/dL 0-130 NIH KEVIN NSUS REPOR T RECOM MENDA TIONS FOR LDL: ADULT CHILD LOW RISK <130 <110 (OPTI MAL LDL) <100 ----- DANIELA RLINE : 130-1 59 ----- HIGH RISK: >160 >130 A TRIGL YCERI DE RESUL T >400 INVAL IDATE S THE CALCU LATIO N FOR LDL FRACT IONAT ION - THE LDL RESUL T WILL NOT BE REPOR HECTOR. Not Available [facility] (Lab) [address] [place], [address], 02/05/2024 14:57:35 02/05/20 24 02/05/2024 COMPR EHENS NESSA METAB OLIC PANEL sodium 140 mmol/ L 137-14 5 Not Available [facility] (Lab) [address] [place], [address], 02/05/2024 14:57:41 02/05/20 24 02/05/2024 COMPR EHENS NESSA METAB OLIC PANEL potassium 4.9 mmol/ L 3.5-5. 1 Not Available [facility] (Lab) [address] [place], [address], 02/05/2024 14:57:41 02/05/20 24 02/05/2024 COMPR EHENS NESSA METAB OLIC PANEL chloride 105 mmol/ L 98-107 Not Available [facility] (Lab) [address] [place], [address], 02/05/2024 14:57:41 02/05/20 24 02/05/2024 COMPR EHENS NESSA METAB OLIC PANEL carbon dioxide 28 mmol/ L 22-30 Not Available [facility] (Lab) [address] [place], [address], 02/05/2024 14:57:41 02/05/20 24 02/05/2024 COMPR EHENS NESSA METAB OLIC PANEL anion gap 11.9 mmol/ L 14-22 low Not Available [facility] (Lab) [address] [place], [address], 02/05/2024 14:57:41 02/05/20 24 02/05/2024 COMPR EHENS NESSA METAB OLIC PANEL glucose 118 mg/dL 70-99 high Not Available [facility] (Lab) [address] [place], [address], 02/05/2024 14:57:41 02/05/20 24 02/05/2024 COMPR EHENS NESSA METAB OLIC PANEL BUN 18 mg/dL 8-19 Not Available [facility] (Lab) [address] [place], [address], 02/05/2024 14:57:41 02/05/20 24 02/05/2024 COMPR EHENS NESSA METAB OLIC PANEL creatinine 1.43 mg/dL 0.66-1 .25 high Not Available [facility] (Lab) [address] [place], [address], 02/05/2024 14:57:41 02/05/20 24 02/05/2024 COMPR EHENS NESSA METAB OLIC PANEL GFR 36 Refer ence Range : [place] ge GFR Healt hy Adult : >60 mL/mi n/1.7 3 m2 Chron ic Kidne y Disea se: 15-60 mL/mi n/1.7 3 m2 Kidne y Failu re: <15/m L/min /1.73 m2 www.n iddk. nih.g ov The MDRD study equat ion has not been valid ated in child sade <18 years of age; pregn ant women ; the elder ly >85 years of age; or in some racia l or ethni c subgr oups, such as Hispa nics. Outsi de the valid ated clarice eters , estim ated GFR is less accur ate, requi ring clini cecelia judgm ent on a case- by-ca se basis . Clini cecelia inter preta tion for other races and ages must be made by the clini peri. The MDRD study equat ion has not been valid ated for the evalu ation of serum creat inine relat ed to nutri ehsan l statu s or medic ation usage . For perso ns <18 years of age, a pedia tric GFR calcu lator is avail able on the [facility] websi te: https ://jovanni w.juno herndon.o rg/pr ofess ional s/kdo qi/gf r_cal culat or Not Available [facility] (Lab) [address] [place], [address], 02/05/2024 14:57:41 02/05/20 24 02/05/2024 COMPR EHENS NESSA METAB OLIC PANEL alkaline phosphatase 97 U/L 38-126 Not Available [facility] (Lab) [address] [place], [address], 02/05/2024 14:57:41 02/05/20 24 02/05/2024 COMPR EHENS NESSA METAB OLIC PANEL alanine aminotransfe rase 28 U/L 0-35 Not Available [facility] (Lab) [address] [place], [address], 02/05/2024 14:57:41 02/05/20 24 02/05/2024 COMPR EHENS NESSA METAB OLIC PANEL aspartate aminotransfe rase 25 U/L 15-37 Not Available [facility] (Lab) [address] [place], [address], 02/05/2024 14:57:41 02/05/2002/05/2024 COMPR EHENS NESSA METAB OLIC PANEL bilirubin, total 0.60 mg/dL 0.20-1 .30 Not Available [facility] (Lab) [address] [place], [address], 02/05/2024 14:57:41 02/05/2002/05/2024 COMPR EHENS NESSA METAB OLIC PANEL calcium 10.3 mg/dL 8.4-10 .2 high Not Available [facility] (Lab) [address] [place], [address], 02/05/2024 14:57:41 02/05/2002/05/2024 COMPR EHENS NESSA METAB OLIC PANEL total protein 6.8 g/dL 6.3-8. 2 Not Available [facility] (Lab) [address] [place], [address], 02/05/2024 14:57:41 02/05/20 24 02/05/2024 COMPR EHENS NESSA METAB OLIC PANEL albumin 4.1 g/dL 3.0-4. 4 Not Available [facility] (Lab) [address] [place], [address], 02/05/2024 14:57:41 02/05/20 24 02/05/2024 COMPR EHENS NESSA METAB OLIC PANEL globulin 2.7 g/dL 2.6-4. 2 Not Available [facility] (Lab) [address] [place], [address], 02/05/2024 14:57:41 02/05/20 24 02/05/2024 COMPR EHENS NESSA METAB OLIC PANEL A/G ratio 1.5 ratio 1.0-2. 0 Not Available [facility] (Lab) [address] [place], [address], 02/05/2024 14:57:41 02/05/2002/05/2024 PHOSP HORUS phosphorus 3.1 mg/dL 2.5-4. 5 Not Available [facility] (Lab) [address] [place], [address], 02/05/2024 14:57:43 02/05/20 24 02/05/2024 URIC ACID SERUM uric acid 4.2 mg/dL 2.5-6. 2 Not Available [facility] (Lab) [address] [place], [address], 02/05/2024 14:57:45 02/05/2002/05/2024 PARAT HY.HO RM(PT H)INT ACT-W /O CA intact parathyroid hormone 50.6 pg/mL 24.0-7 8.0 Pleas e note new refer ence range effec tive 04/08 . Not Available [facility] (Lab) [address] [place], [address], 02/05/2024 15:01:15 02/05/20 24 02/05/2024 T4 FREE free T4 0.85 NG/dL 0.78-2 .19 Not Available [facility] (Lab) [address] [place], [address], 02/05/2024 15:12:28 02/05/20 24 02/05/2024 VITAM IN D 25-HY DROXY [id number] 57.1 NG/mL 30-100 Vitam in D Statu s: Defic ient: <20 ng/mL Insuf ficie nt: 20-29 ng/mL Suffi cient : 30-10 0 ng/mL Not Available [facility] (Lab) [address] [place], [address], 02/05/2024 15:13:00 02/05/20 24 02/05/2024 TSH thyroid-stim ulating hormone 1.150 uIU/m L 0.465- 4.680 Not Available [facility] (Lab) [address] [place], [address], 02/05/2024 15:22:15 07/06/19 25 07/06/2024 FRUCT OSAMI NE fructosamine 239 umol/ L 0-285 Publi shed refer ence inter branden for appar ently healt hy subje cts betwe en age 20 and 60 is 205 - 285 umol/ L and in a poorl y contr olled diabe tic popul ation is 228 - 563 umol/ L with a mean of 396 umol/ L. Perfo rmed at: - [facility] [address], [place] [address] Lab Direc tor: Venu bhakta PhD, Phone : [phone] Not Available [facility] (Lab) [address] [place], [address], 07/06/2024 10:10:35 05/23/19 25 05/20/2024 MRI, lumba r spine , w/o contr ast [facility] [address] [place] [address] Patien t Name: TRI HANLEY Access ion #: [id number] Sex: F : 1950 0 Locati on: RAD Attend ing Physic gerri: OLEG LONDONO CE Orderi ng Physic gerri: OLEG LONDONO CE Exam Date: 025 2:38 PM Exam Name: MRI L SPINE WO Admitt ing Diagno sis(es ): RADIOL OGY REPORT - FINAL EXAM: MRI L SPINE WO HISTOR Y: lumbar radicu lopath y/back pain 73-yea r-old female with low back pain radiat ing to the left leg, left lower extrem ity numbne ss and tingli ng, histor y of breast cancer . COMPAR SHAW: Lumbar spine radiog raphs dated 2023. TECHNI QUE: Multip lanar multis equenc e noncon trast MR images of the lumbar spine were perfor med. FINDIN GS: No fractu re or listhe sis are identi fied in the lumbar spine. The conus termin ates at L1. Page 1 of 3 [facility] t Name: TRI HANLEY Access ion #: [id number] Sex: F : 1950 0 Exam Date: 025 2:38 PM Exam Name: MRI L SPINE WO Admitt ing Diagno sis(es ): T12-L1 : There is a mild circum ferent ial broad disc bulge. There is a rightw suellen projec ting disc-o steoph yte comple x measur ing 11 mm transv erse x 20 mm AP (image 3, series 6). There is edema of the superi or endpla te of L1 on the right. No signif icant spinal canal stenos is. L1-L2: There is a circum ferent ial broad disc bulge with endpla te hypert rophy, most promin ent in the right anteri or region . There is bilate ral facet and ligame ntum flavum hypert rophy. No signif icant spinal canal stenos is. There is mild bilate ral neural forami nal stenos is. L2-L3: There is a circum ferent ial broad disc bulge with endpla te hypert rophy. There are Modic type 2 change s in the adjace nt endpla li, greate r on the left. There is bilate ral facet and ligame ntum flavum hypert rophy. The AP dimens ion of the spinal canal measur es 8 mm. There is modera te bilate ral neural forami nal stenos is. L3-L4: There is a circum ferent ial broad disc bulge with endpla te hypert rophy, most promin ent in the left forami nal region . The AP dimens ion of the spinal canal measur es 6.5 mm. There is bilate ral facet and ligame ntum flavum hypert rophy. There is modera te bilate ral neural forami nal stenos is. L4-L5: There is slight loss of disc height . There is a circum ferent ial broad disc bulge with endpla te hypert rophy, most promin ent in the forami nal region s, left greate r than right. There is bilate ral facet and ligame ntum flavum hypert rophy. The AP dimens ion of the spinal canal measur es 9 mm. There is mild right and modera te left neural forami nal stenos is. L5-S1: There is disc desicc ation with loss of disc height . Probab le vacuum phenom enon in the disc. There is a circum ferent ial broad disc bulge with Page 2 of 3 [facility] Patien t Name: TRI HANLEY Access ion #: [id number] Sex: F : 1950 0 Exam Date: 2:38 PM Exam Name: MRI L SPINE WO Admitt ing Diagno sis(es ): endpla te hypert rophy. There are multip le disc annulu s tears. There is bilate ral facet hypert rophy. No signif icant spinal canal stenos is. There is modera te to severe bilate ral neural forami nal stenos is. IMPRES ELIEZER: 1. No fractu re of the lumbar spine. 2. Degene rative disc diseas e and facet arthro [place] with modera te spinal canal stenos is at L3-L4; mild spinal canal stenos is at L2-L3 and L4-L5. 3. Signif icant neural forami nal stenos is at L2-L3 bilate rally, L3-L4 bilate rally, L4-L5 on the left, L5-S1 bilate rally. These findin gs may corres pond to lower extrem ity radicu lar sympto ms in the bilate ral L2, bilate ral L3, left L4, and bilate ral L5 nerve root distri bution s. Create d and electr onical ly signed by: Carlos daniels MD Signed Date: 7:00 PM (CT) Dictat ed by: Carlos daniels MD DD: 7:00 PM (CT) DT: 7:00 PM (CT) Page 3 of 3 [facility] (Imaging) [address] [place], [address], 05/22/2024 21:31:04 08/08/19 25 04/16/2024 (ROBERT) ankle brach ial index * No observ ation record ed. [email or web address] [facility] (One Call Scheduling) [address] [place], [address], 08/07/2024 16:17:27 08/08/19 25 04/16/2024 US, duple x, arter ial, lower extre mity No observ ation record ed. [facility] (One Call Scheduling) [address] [place], [address], 08/08/2024 09:55:51 Result Notes Documentation Provider Name and Address Organization Details Recorded Time Mri, Lumbar Spine, W/o Contrast : [facility] [address] [place] [address] Patient Name: TRI HANLEY Sex: F : 1950 Location: [facility] Attending Physician: МАРИНА LONDONO Ordering Physician: МАРИНА LONDONO Exam Date: 05/20/2024 2:38 PM Exam Name: MRI L SPINE WO Admitting Diagnosis(es): RADIOLOGY REPORT - FINAL EXAM: MRI L SPINE WO HISTORY: lumbar radiculopathy/back pain 73-year-old female with low back pain radiating to the left leg, left lower extremity numbness and tingling, history of breast cancer. COMPARISON: Lumbar spine radiographs dated 07/14/2023. TECHNIQUE: Multiplanar multisequence noncontrast MR images of the lumbar spine were performed. FINDINGS: No fracture or listhesis are identified in the lumbar spine. The conus terminates at L1. Page 1 of 3 [facility] Patient Name: TRI HANLEY Sex: F : 1950 Exam Date: 05/20/2024 2:38 PM Exam Name: MRI L SPINE WO Admitting Diagnosis(es): T12-L1: There is a mild circumferential broad disc bulge. There is a rightward projecting disc-osteophyte complex measuring 11 mm transverse x 20 mm AP (image 3, series 6). There is edema of the superior endplate of L1 on the right. No significant spinal canal stenosis. L1-L2: There is a circumferential broad disc bulge with endplate hypertrophy, most prominent in the right anterior region. There is bilateral facet and ligamentum flavum hypertrophy. No significant spinal canal stenosis. There is mild bilateral neural foraminal stenosis. L2-L3: There is a circumferential broad disc bulge with endplate hypertrophy. There are Modic type 2 changes in the adjacent endplates, greater on the left. There is bilateral facet and ligamentum flavum hypertrophy. The AP dimension of the spinal canal measures 8 mm. There is moderate bilateral neural foraminal stenosis. L3-L4: There is a circumferential broad disc bulge with endplate hypertrophy, most prominent in the left foraminal region. The AP dimension of the spinal canal measures 6.5 mm. There is bilateral facet and ligamentum flavum hypertrophy. There is moderate bilateral neural foraminal stenosis. L4-L5: There is slight loss of disc height. There is a circumferential broad disc bulge with endplate hypertrophy, most prominent in the foraminal regions, left greater than right. There is bilateral facet and ligamentum flavum hypertrophy. The AP dimension of the spinal canal measures 9 mm. There is mild right and moderate left neural foraminal stenosis. L5-S1: There is disc desiccation with loss of disc height. Probable vacuum phenomenon in the disc. There is a circumferential broad disc bulge with Page 2 of 3 [facility] Patient Name: TRI HANLEY Sex: F : 1950 Exam Date: 05/20/2024 2:38 PM Exam Name: MRI L SPINE WO Admitting Diagnosis(es): endplate hypertrophy. There are multiple disc annulus tears. There is bilateral facet hypertrophy. No significant spinal canal stenosis. There is moderate to severe bilateral neural foraminal stenosis. IMPRESSION: 1. No fracture of the lumbar spine. 2. Degenerative disc disease and facet arthropathy with moderate spinal canal stenosis at L3-L4; mild spinal canal stenosis at L2-L3 and L4-L5. 3. Significant neural foraminal stenosis at L2-L3 bilaterally, L3-L4 bilaterally, L4-L5 on the left, L5-S1 bilaterally. These findings may correspond to lower extremity radicular symptoms in the bilateral L2, bilateral L3, left L4, and bilateral L5 nerve root distributions. Created and electronically signed by: Carlos Pavon MD Signed Date: 05/22/2024 7:00 PM (CT) Dictated by: Carlos Pavon MD (CT) (CT) Page 3 of 3 Марина Londono MD [address] [place] [address], [phone], [facility] [employer] 05/22/2024 21:31:04 Problems Name Problem SNOMED Code Status Onset Date Resolution Date Notes Provider Name and Address Organization Details Recorded Time Renewal of prescript ion Active 2021 Not Available [facility] 4 07:48:38 Bilateral arthritis of knees 07738307662 85782 Active 2019 Not Available [facility] 4 07:48:38 Tobacco user 682732929 Active Not Available [facility] 4 07:48:38 Benign essential hypertens ion 6223110 Active Not Available [employer] 4 07:48:38 Hyperchol esterolem ia 66390633 Active 2021 Not Available [facility] 4 07:48:38 Acute sinusitis 25678569 Active 2021 Not Available [facility] 4 07:48:38 Serum creatinin e outside reference range 747756268 Active Not Available [facility] 4 07:48:38 Gastroeso phageal reflux disease 177782219 Active Not Available [facility] 4 07:48:38 Carcinoma of breast 420678000 Active 2017 Not Available [facility] 4 07:48:38 Pure hyperchol esterolem ia 262247819 Active Not Available [facility] 4 07:48:38 Type 2 diabetes mellitus without complicat ion 977988929 Active Not Available [facility] 4 07:48:38 Depressiv e disorder 28684445 Active Not Available [facility] 4 07:48:38 Osteoarth ritis 439134570 Active 2021 Not Available [facility] 4 07:48:38 Diabetic periphera l neuropath y 306790344 Active Not Available [facility] 4 07:48:38 Acute urinary tract infection 807544751 Active 2021 Not Available [facility] 4 07:48:38 Chronic kidney disease stage 3 744580635 Active 2019 Not Available [facility] 4 07:48:38 Type 2 diabetes mellitus 02950576 Completed SHIVANI Louis, [facility] 5 12:09:30 Pain of right knee joint 00093573840 4100 Active 2021 Not Available [facility] 4 07:48:38 Pain of left knee joint 34314312338 4107 Active 2021 Not Available [facility] 4 07:48:38 Candidias is of vagina 97831175 Active 2021 Not Available [facility] 4 07:48:38 COVID-19 215356227 Active 2021 Not Available [facility] 4 07:48:38 Nausea and vomiting 71691846 Active 2022 Not Available [facility] 4 07:48:38 Diarrhea 90207953 Active 2022 Not Available [facility] 4 07:48:38 Neuropath y due to diabetes mellitus 619268357 Active 2022 Not Available [facility] 4 07:48:38 Neuropath y 805781418 Active 2022 Not Available [facility] 4 07:48:38 Celluliti s of lower limb 741630363 Active 2022 Not Available [facility] 4 07:48:38 Low back pain 188826381 Active 2023 Lizabeth Damico CMA null, [place] [facility] 4 15:43:55 Gout 43469822 Active 2023 Марина Londono MD [address], [place], [address] , [facility] 4 11:52:17 Obese class II 95935011549 4105 Active 2023 Марина Londono MD [address], [place], [address] , [facility] [employer] [facility] 4 11:43:23 Spasm of back muscles 391178030 Active 2024 Lizabeth Damico CMA null, [place] [facility] 5 15:19:33 Periphera l vascular disease 900181072 Active 2024 Darrion Aranda DPM [address], [place], [address] , [facility] [employer] [facility] 5 14:45:03 Ex-smoker 7874486 Active 2024 Darrion Aranda DPM [address], [place], [address] , [facility] [employer] [facility] 5 14:45:27 Lumbar radiculop athy 367482934 Active 2024 Марина Londono MD [address], [place], [address] , [facility] - [facility] 5 15:21:05 Type 2 diabetes mellitus 19964684 Active 2024 Lizabeth Damico CMA null, [place] [facility] 5 12:09:29 Dystrophi a unguium 73728290 Active 2024 Darrion Aranda DPM [address], [place], [address] , [facility] [employer] [facility] 5 13:10:13 Problem Notes None recorded. Procedures Surgical History Date Name Laterality Status Provider Name and Address Organization Details Recorded Time 5 Nail Debridement completed Darrion Aranda, DPAquiles [address] [facility], [facility] [address], [place], [address], [facility] [place] 08/01/2024 13:09:07 4 Medicare Wellness CPT Code, subsequent completed Kourtney Bonilla RN [facility] N(i[facility]² [facility] 02/05/2024 11:27:23 3 Medicare Wellness CPT Code, subsequent completed Kourtney Bonilla RN [facility] N(i[facility]² [facility] 11/16/2022 12:21:54 Knee Surgery completed Evelyn Randall [facility] 04/04/2024 14:15:06 Imaging Results None recorded. Procedure Notes None recorded. Medical Equipment None Reported. Allergies No known drug allergies Medications Name Sig Start Date Stop Date Status Note LastModified by Organization Details LastModified Time cyclobenz aprine 10 mg tablet TAKE 1 TABLET BY MOUTH THREE TIMES A DAY FOR 7 DAYS active Not Available Not Available No t Available amoxicill in 500 mg capsule Take 1 capsule 3 times a day by oral route for 10 days. 06/29 completed Not Available Not Available Not Available furosemid e 40 mg tablet TAKE 1 TABLET BY MOUTH EVERY DAY FOR 90 DAYS 02/04 completed Not Available Not Available Not Available atorvasta tin 40 mg tablet TAKE 1 TABLET BY MOUTH EVERY DAY 2024 active Not Available Not Available Not Avai lable metformin 500 mg tablet TAKE 1 TABLET BY MOUTH EVERY DAY 03/15 completed Not Available Not Available Not Available anastrozo le 1 mg tablet TAKE 1 TABLET BY MOUTH EVERY DAY active Not Available Not Available No t Available Xanax 0.5 mg tablet Take 1 tablet 3 times a day by oral route. 11/03 completed Not Available Not Available Not Available prednison e 10 mg tablet TAKE 1 TAB BY MOUTH 3 TIMES A DAY X 3 DAYS, 1 TAB 2 TIMES A DAY X 2 DAYS, 1 TAB ONCE A DAY FOR 1 DAY 09/15 completed Not Available Not Available Not Available gabapenti n 600 mg tablet TAKE 1 TABLET BY MOUTH TWICE A DAY active Not Available Not Available No t Available cefuroxim e axetil 250 mg tablet TAKE 1 TABLET BY MOUTH TWICE DAILY 09/15 completed Not Available Not Available Not Available atorvasta tin 20 mg tablet Take 1 tablet every day by oral route. 2021 active Not Available Not Available Not Avai lable loperamid e 2 mg capsule TAKE 1 CAPSULE BY MOUTH TWICE A DAY active Not Available Not Available No t Available azithromy juana 250 mg tablet TAKE 2 TABLETS (500 MG) BY ORAL ROUTE ONCE DAILY FOR 1 DAY THEN 1 TABLET (250 MG) BY ORAL ROUTE ONCE DAILY FOR 4 DAYS 02/17 completed Not Available Not Available Not Available pravastat in 40 mg tablet TAKE 1 TABLET BY MOUTH EVERY DAY 01/12 completed Not Available Not Available Not Available fluconazo le 150 mg tablet TAKE 1 TABLET BY MOUTH EVERY DAY 03/15 completed Not Available Not Available Not Available benzonata te 200 mg capsule TAKE 1 CAPSULE BY MOUTH THREE TIMES A DAY active Not Available Not Available No t Available lisinopri l 20 mg tablet TAKE 1 TABLET BY MOUTH EVERY DAY 2024 active Not Available Not Available Not Avai lable sertralin e 100 mg tablet TAKE 1 TABLET BY MOUTH ONCE DAILY 06/07 completed Not Available Not Available Not Available loperamid e 2 mg tablet Take 1 tablet twice a day by oral route. active Not Available Not Available No t Available diphenoxy late-atro pine 2.5 mg-0.025 mg tablet TAKE 1 TABLET BY MOUTH EVERY 4 HOURS NEEDED FOR DIARRHEA active Not Available Not Available No t Available Zyrtec 10 mg tablet Take 1 tablet every day by oral route. 11/03 completed Not Available Not Available Not Available amlodipin e 5 mg tablet Take 1 tablet by mouth once daily active Not Available Not Available No t Available allopurin ol 100 mg tablet TAKE 1 TABLET BY MOUTH EVERY DAY 06/17 completed Not Available Not Available Not Available Tamiflu 75 mg capsule Take 1 capsule twice a day by oral route for 5 days. 04/26 completed Not Available Not Available Not Available sulfameth oxazole 800 mg-trimet hoprim 160 mg tablet TAKE 1 TABLET BY MOUTH EVERY 12 HOURS 04/21 completed Not Available Not Available Not Available aspirin 81 mg tablet,de layed release Take 1 tablet every day by oral route. 11/03 completed Not Available Not Available Not Available tramadol 50 mg tablet TAKE 1/2 TABLET BY MOUTH EVERY 8 HOURS NEEDED 04/07 completed Not Available Not Available Not Available acetamino phen 500 mg tablet TAKE 2 TABLETS BY MOUTH EVERY 6 HOURS. MAX 8 TABS/24 HOURS active Not Available Not Available No t Available amoxicill in 500 mg tablet TAKE 4 TABLETS BY MOUTH 1 HOUR BEFORE DENTAL PROCEDUR E 11/16 completed Not Available Not Available Not Available glimepiri de 1 mg tablet TAKE ONE TABLET BY MOUTH ONCE DAILY 02/21 completed Not Available Not Available Not Available prednison e 10 mg tablets in a dose pack Take 1 tab by mouth, 3 times a day for 3 daysTake 1 tab by mouth 2 times a day for 2 daysTake 1 tab by mouth once a day for 1 day 06/07 completed Not Available Not Available Not Available lancets one touch verio lancets to use to test blood sugar daily active Not Available Not Available No t Available citalopra m 20 mg tablet Take 1 tablet by mouth once daily active Not Available Not Available No t Available magnesium oxide 400 mg (241.3 mg magnesium ) tablet TAKE 1 TABLET BY MOUTH EVERY DAY NEEDED active Not Available Not Available No t Available Zoloft 50 mg tablet Take 1 tablet every day by oral route. active Not Available Not Available No t Available Kenalog 10 mg/mL suspensio n for injection In office injectio n administ ered by the provider 01/[address] [facility]: [phone] - Not Available Not Available Not Available meclizine 25 mg tablet TAKE 1 TABLET BY MOUTH EVERY 8 HOURS NEEDED active Not Available Not Available No t Available baclofen 10 mg tablet TAKE 1 TABLET 3 TIMES A DAY BY ORAL ROUTE. active Not Available Not Available No t Available hydrocodo ne 7.5 mg-acetam inophen 325 mg tablet 07/13 completed Not Available Not Available Not Available cephalexi n 500 mg capsule TAKE 1 CAPSULE BY MOUTH EVERY 6 HOURS. 03/15 completed Not Available Not Available Not Available ferrous sulfate 325 mg (65 mg iron) tablet TAKE 1 TABLET BY MOUTH EVERY DAY active Not Available Not Available No t Available metformin 1,000 mg tablet TAKE 1 TABLET BY MOUTH TWICE DAILY active Not Available Not Available No t Available hydrocort isone 100 mg/60 mL enema 03/15 completed Not Available Not Available Not Available hydrochlo rothiazid e 12.5 mg capsule once daily active Not Available Not Available No t Available gabapenti n 300 mg capsule PLEASE SEE ATTACHED FOR DETAILED DIRECTIO NS active Not Available Not Available No t Available allopurin ol 300 mg tablet Take 1 tablet twice a day by oral route. active Not Available Not Available No t Available gabapenti n 100 mg capsule Take 1 capsule 3 times a day by oral route. 07/13 completed Not Available Not Available Not Available ergocalci ferol (vitamin D2) 1,250 mcg (50,000 unit) capsule TAKE 1 CAPSULE BY MOUTH ONE TIME PER WEEK FOR 90 DAYS active Not Available Not Available No t Available Diprolene (augmente d) 0.05 % topical ointment APPLY TO THE AFFECTED AREA(S) BY TOPICAL ROUTE ONCE DAILY ; DO NOT EXCEED 45 GRAMS PER WEEK. 11/03 completed Not Available Not Available Not Available polyethyl vitor glycol 3350 17 gram/dose oral powder MIX 17 GRAMS OF POWDER IN 8 OUNCES OF FLUID & DRINK ONCE DAILY.HO LD IF LOOSE STOOLS. 11/26 completed Not Available Not Available Not Available methylpre dnisolone 4 mg tablets in a dose pack TAKE 6 TABLETS ON DAY 1 DIRECTED ON PACKAGE AND DECREASE BY 1 TAB EACH DAY FOR A TOTAL OF 6 DAYS 06/17 completed Not Available Not Available Not Available ondansetr on 4 mg disintegr ating tablet ALLOW 2 TABLETS TO DISSOLVE ON TOP OF THE TONGUE TWICE A DAY active Not Available Not Available No t Available calcitrio l 0.25 mcg capsule TAKE 1 CAPSULE BY MOUTH EVERY DAY active Not Available Not Available No t Available oxycodone 5 mg tablet take 1 tablet PO Q 4HR PRN 07/13 completed Not Available Not Available Not Available Mucinex 600 mg tablet, extended release Take 1 tablet every 12 hours by oral route. active Not Available Not Available No t Available cyclobenz aprine 5 mg tablet TAKE 1 TABLET BY MOUTH EVERY 8 HOURS NEEDED 04/07 completed Not Available Not Available Not Available ORTHOVISC 30 mg/2 mL intra-art icular syringe Injectio ns given in the office by the doctor. 06/[address] [facility]: [id number] Not Available Not Available Not Available nitrofura ntoin monohydra te/macroc rystals 100 mg capsule Take 1 capsule every 12 hours by oral route. 04/07 completed Not Available Not Available Not Available lidocaine (PF) 10 mg/mL (1 %) injection solution In office injectio n administ ered by the provider 06/[address] [facility]: [phone] 08-27 Not Available Not Available Not Available lidocaine (PF) 5 mg/mL (0.5 %) injection solution In office injectio n administ ered by the provider 01/12 completed Not Available Not Available Not Available diclofena c 1 % topical gel APPLY 2 GRAMS TOPICALL Y 4 TIMES DAILY TO SINGLE ELBOW WRIST OR HAND (FOR HAND INCLUDES PALM FINGER BACK OF HAND) 06/07 completed Not Available Not Available Not Available Senexon-S 8.6 mg-50 mg tablet TAKE 2 TABLETS BY MOUTH TWICE A DAY TO PREVENT CONSTIPA TION. HOLD FOR LOOSE STOOLS active Not Available Not Available No t Available ropivacai ne (PF) 5 mg/mL (0.5 %) injection solution In office injectio n administ ered by the provider 01/12 completed Not Available Not Available Not Available OneTouch Verio test strips USE TO TEST ONCE DAILY active Not Available Not Available No t Available Eliquis 2.5 mg tablet Take 1 tablet every 12 hours by oral route. active Not Available Not Available No t Available Farxiga 5 mg tablet TAKE 1 TABLET BY MOUTH EVERY DAY 2024 active Not Available Not Available Not Avai lable Trulicity 0.75 mg/0.5 mL subcutane ous pen injector Please specify directio ns, refills and quantity active Not Available Not Available No t Available Bydureon BCise 2 mg/0.85 mL subcutane ous auto-inje ctor Please specify directio ns, refills and quantity active Not Available Not Available No t Available magnesium 400 mg (as magnesium oxide) tablet Take 1 tablet every day by oral route. 09/22 completed Not Available Not Available Not Available OneTouch Delica Plus Lancet 33 gauge USE TO TEST ONCE DAILY active Not Available Not Available No t Available OneTouch Verio Reflect Meter USE TO TEST ONCE DEAILY active Not Available Not Available No t Available Ozempic 1 mg/dose (4 mg/3 mL) subcutane ous pen injector Inject 1 mg sub-q once weekly on the same day of the week 06/01 completed Not Available Not Available Not Available Ozempic 2 mg/dose (8 mg/3 mL) subcutane ous pen injector INJECT 2 MG SUB-Q ONCE A WEEK 2024 active Not Available Not Available Not Avai lable Paxlovid 150 mg-100 mg tablets in a dose pack (Moderate Renal Dose) TAKE 1NIRTREL MAVIR & 1RITONAV IR BY MOUTH TWICE DAILY FOR 5DAY. NO ATORVAST ATIN X7DAY 05/09 completed Not Available Not Available Not Available Ozempic 0.25 mg or 0.5 mg (2 mg/3 mL) subcutane ous pen injector INJECT 0.25 MG WEEKLY FOR FOUR WEEKS THEN CONTACT OFFICE FOR NEW DOSING 01/17 completed Not Available Not Available Not Available glipizide 2.5 mg tablet TAKE 1 TABLET BY MOUTH TWICE A DAY active Not Available Not Available No t Available Vitals Date Recorded Body height Body mass index (BMI) Body weight Heart rate Respiratory rate Oxygen saturation Oxygen saturation in Arterial blood by Pulse oximetry Systolic blood pressure Diastolic blood pressure Provider Name and Address Organization Details Last Updated DateTime 5 157.48 cm 38 kg/m2 99396.2 1 g 104 /min 14 /min 98 % 98 % 105 mm[Hg] 56 mm[Hg] Evelyn Randall [employer] 5 14:12:51 Date Recorded Body height Body mass index (BMI) Body weight Heart rate Body temperature Oxygen saturation Oxygen saturation in Arterial blood by Pulse oximetry Systolic blood pressure Diastolic blood pressure Provider Name and Address Organization Details Last Updated DateTime 5 154.94 cm 38.2 kg/m2 94744.6 6 g 84 /min 97 [degF] 96 % 96 % 120 mm[Hg] 82 mm[Hg] Cindy Henry [employer] 5 15:03:40 Date Recorded Body height Body mass index (BMI) Body weight Heart rate Body temperature Oxygen saturation Oxygen saturation in Arterial blood by Pulse oximetry Systolic blood pressure Diastolic blood pressure Provider Name and Address Organization Details Last Updated DateTime 5 154.94 cm 38.6 kg/m2 78679.6 4 g 116 /min 97 [degF] 95 % 95 % 122 mm[Hg] 78 mm[Hg] Cindy Henry [facility] N(i[facility]² [facility] 5 16:06:43 Date Recorded Body height Body mass index (BMI) Body weight Heart rate Respiratory rate Oxygen saturation Oxygen saturation in Arterial blood by Pulse oximetry Systolic blood pressure Diastolic blood pressure Provider Name and Address Organization Details Last Updated DateTime 5 154.94 cm 38.5 kg/m2 71281.8 4 g 110 /min 14 /min 98 % 98 % 106 mm[Hg] 67 mm[Hg] Evelyn Prakash [facility] N(i[facility]² [facility] 5 12:18:25 Date Recorded Body height Body mass index (BMI) Body weight Heart rate Body temperature Oxygen saturation Oxygen saturation in Arterial blood by Pulse oximetry Systolic blood pressure Diastolic blood pressure Provider Name and Address Organization Details Last Updated DateTime 4 152.4 cm 40.6 kg/m2 61283.2 1 g 106 /min 97 [degF] 96 % 96 % 120 mm[Hg] 74 mm[Hg] POOJA Clark [facility] N(i)² [facility] 4 11:16:44 Social History Question Answer Notes LastModified by [email or web address] ion Details LastModified Time Tobacco Smoking Status Former Smoker Not Available [facility] 05/11/2022 12:44:48 Do You Have An Advance Directive? Yes [id number] Information not available 05/11/2022 Are You Blind Or Do You Have Difficulty Seeing? No [id number] Information not available 05/11/2022 What Is Your Level Of Caffeine Consumption? None Information not available 04/04/2024 In The 14 Days Before Symptom Onset, Have You Had Close Contact With A Laboratory-confir med COVID-19 While That Case Was Ill? No [id number] Information not available 05/11/2022 In The 14 Days Before Symptom Onset, Have You Had Close Contact With A Person Who Is Under Investigation For COVID-19 While That Person Was Ill? No [id number] Information not available 05/11/2022 Are You Deaf Or Do You Have Serious Difficulty Hearing? No [id number] Information not available 05/11/2022 What Type Of Diet Are You Following? REGULAR [id number] Information not available 05/11/2022 Have There Been Any Changes To Your Family Or Social Situation? No [id number] Information not available 05/11/2022 What Is The Fluoride Status Of Your Home? Unknown [id number] Information not available 05/11/2022 Are There Any Guns Present In Your Home? No [id number] Information not available 05/11/2022 Do You Use Insect Repellent Routinely? No [id number] Information not available 05/11/2022 Where Do You Live? [place] [id number] Information not available 05/11/2022 Guns Present In The Home? No [email or web address] Information not available 02/05/2024 Are You Able To Care For Yourself? Yes [email or web address] Information not available 02/05/2024 Are You Blind Or Do Yo Have Difficulty Seeing? No [email or web address] Information not available 02/05/2024 Are You Deaf Or Do You Have Serious Difficulty Hearing? No Information not available 02/05/2024 Live Alone Of With Others? Alone [email or web address] Information not available 02/05/2024 What Was The Date Of Your Most Recent Tobacco Screening? 04/04/2024 Information not available 04/04/2024 Have You Ever Been Counseled For Unhealthy Alcohol Use? No Information not available 04/04/2024 Do You Have Any Pets? Yes MIGRATION.[id number] [id number] Information not available 05/11/2022 Do You Use Your Seat Belt Or Car Seat Routinely? Yes MIGRATION.52983 49272 Information not available 05/11/2022 Do You Have Smoke And Carbon Monoxide Detectors In Your Home? Yes MIGRATION.03884 50603 Information not available 05/11/2022 Are You Passively Exposed To Smoke? No MIGRATION.15966 14798 Information not available 05/11/2022 Are There Any Smokers In Your House? No MIGRATION.30566 75292 Information not available 05/11/2022 How Much Tobacco Do You Smoke? 0.25 PPD MIGRATION.39408 20219 Information not available 05/11/2022 Do You Use Sunscreen Routinely? Yes MIGRATION.86846 35193 Information not available 05/11/2022 Has Tobacco Cessation Counseling Been Provided? No Information not available 04/04/2024 Have You Recently Traveled Abroad? No MIGRATION.32600 94389 Information not available 05/11/2022 Do You Have Difficulty Walking Or Climbing Stairs? No MIGRATION.07546 36306 Information not available 05/11/2022 Do You Have Any Dietary Restrictions? No MIGRATION.88035 04006 Information not available 05/11/2022 Sex: Unknown Functional Status Question Answer Note LastModified by Organizat ion Details LastModified Time Do you use any illicit or recreational drugs? No Information not available 04/04/2024 Do you or have you ever used any other forms of tobacco or nicotine? No Information not available 04/04/2024 What is your level of alcohol consumption? Occasional Information not available 04/04/2024 Do you have transportation difficulties? No MIGRATION.906563 2363 Information not available 05/11/2022 Are you able to walk? YESWOREST MIGRATION.005935 2301 Information not available 05/11/2022 Do you have difficulty doing errands alone? No MIGRATION.173563 6909 Information not available 05/11/2022 Are you able to care for yourself? Yes MIGRATION.353888 0974 Information not available 05/11/2022 Do you have difficulty dressing or bathing? No MIGRATION.832851 0557 Information not available 05/11/2022 Do you or have you ever used e-cigarettes or vape? Never used electronic cigarettes MIGRATION.156947 4235 Information not available 05/11/2022 What is your exercise level? None MIGRATION.934517 0224 Information not available 05/11/2022 Mental Status Question Answer Note LastModified by Organizat ion Details LastModified Time Do you have difficulty concentrating, remembering or making decisions? No MIGRATION.[id number] Information not available 05/11/2022 Family History Relationship Description Onset Age of this Age Resolved Age Notes LastModified by Organization Details LastModified Time Unspecified Relation Family history of malignant neoplasm [id number] Not available 05/11/2022 12:44:53 Father No current problems or disability [email or web address] Not available 03/15 12:19:39 Mother No current problems or disability [email or web address] Not available 03/15 12:19:39 Notes:Mother 75 yea rs old unknown health status Father 45 years old 2 Brothers 2 Living 1 Sisters 0 Living Medical History Condition Response NERVE DISEASE N BLINDNESS N RHEUMATIC FEVER N KIDNEY STONES N BLADDER PROBLEMS N MRSA N CARPAL TUNNEL SYNDROME N OTHER # 1 N POLIO N LUNG DISEASE/DISORDER N HISTORY OF DRUG ABUSE N RADIATION / CHEMOTHERAPY Y COPD N Other # 2 N SPORTS INJURY N ANKLE PAIN N BLOOD DISEASES N EAR OR HEARING PROBLEMS N MUMPS N SCHIZOPHRENIA N SHINGLES N SHOULDER PAIN N DEPRESSION (INCLUDING POST ) N BOWEL PROBLEMS Y STROKE/TIA N KNEE PAIN N ULCERS N BENIGN PROSTATIC HYPERPLASIA N MEASLES N MYOCARDIAL INFARCTION N OBESITY N GERD/NAUSEA N ANEURYSM N URINARY/BLADDER/KIDNEY PROBLEMS Y CORONARY ARTERY DISEASE (CAD) N ADDICTION CONCERNS N ENDOMETRIOSIS N Impotence N USE OF BLOOD THINNERS N SKIN PROBLEMS N EMPHYSEMA N GASTROINTESTINAL DISORDER N PERIPHERAL VASCULAR DISEASE N MUSCLE,JOINT OR BONE PROBLEMS N DVT N STOMACH ULCERS N GASTROINTESTINAL BLEEDING N BLOOD CLOTS N ASTHMA N CATARACTS N USE OF NSAIDS N CONCUSSION OR SPINAL TRAUMA N ERECTILE DYSFUNCTION N VARICOSITIES N GI PROBLEMS N Low Testosterone N NEUROPATHY N INFERTILITY N AIDS/HIV N FRACTURES N CHEMOTHERAPY / RADIATION N LIVER DISEASE N MALE HYPOGONADISM N ELBOW PAIN N HYPERTENSION N Deficiency N TOURETTE'S N ANXIETY DISORDER N Metal allergy N BLOOD TRANSFUSION N ANEMIA/BLOOD DISORDER N CHRONIC EAR INFECTIONS N BIPOLAR DISORDER N BRONCHITIS N OSTEOARTHRITIS N TUBERCULOSIS N GLAUCOMA N FOOT PROBLEM N HEART VALVE DISORDERS N DIVERTICULITIS N CHICKENPOX N SLEEP APNEA N SOFT TISSUE INJURY N ALLERGIES/HAYFEVER N INFECTIOUS DISEASE N PROSTATE N HEART ARRHYTHMIA N INSOMNIA N RHEUMATOID ARTHRITIS N HIGH CHOLESTEROL / HYPERLIPIDEMIA N EYE PROBLEMS N HYPERTHYROIDISM N EDEMA N CHRONIC PAIN SYNDROME N HYPOTHYROIDISM N CAROTID BLOCKAGE N CONSTIPATION N BACK / NECK PROBLEMS N HAVE YOU BEEN HOSPITALIZED OR SEEN IN [facility] IN THE PAST YEAR ? N ATHEROSCLEROSIS N BURSITIS N BREAST PROBLEMS Y HERNIATED DISC N DIALYSIS N ECZEMA N FIBROMYALGIA N OSTEOPOROSIS N ARTHRITIS N NO SIGNIFICANT PAST MEDICAL HISTORY N PERIPHERAL NEUROPATHY N APPENDICITIS N DIABETES, TYPE Y BAD TEETH N ENT N HEARTBURN / REFLUX N AUTISM SPECTRUM DISORDER (ASD) N HEPATITIS / LIVER DISEASE N GOUT N SLEEP DISORDER N ALZHEIMER'S DISEASE N Brain Problems N HERPES N DEMENTIA N HEADACHES/MIGRAINES N SEIZURES/EPILEPSY N VASCULAR DISEASE N PACEMAKER N Blood Disorder N HIP PAIN N DIZZINESS N HEAD TRAUMA OR INJURY N HEART DISEASE/HEART PROBLEMS N KIDNEY DISEASE Y MULTIPLE SCLEROSIS N CARDIAC ARRHYTHMIA N CANCER: SPECIFY Y ANESTHESIA COMPLICATIONS N ATRIAL FIBRILLATION N Gall Stones N PULMONARY EMBOLISM N AUTOIMMUNE DISEASE N Gynecological History Statement/Question Response Date of Last Mammogram 02/13/2020 Date of Last Colonoscopy Most Recent Bone Density Obstetrics History GPAL:G 0 P 0 0 0 0 Immunizations Vaccine Type Date Status Note Provider Nam e and Address Organization Details Recorded Time pneumococcal polysaccharide PPV23 3 completed Cindy klein [facility] 11/18/2022 17:17:54 SARS-COV-2 (COVID-19) vaccine, UNSPECIFIED 1 completed Not Available [facility] 03/27/2023 07:48:39 SARS-COV-2 (COVID-19) vaccine, UNSPECIFIED 1 completed Not Available [facility] 03/27/2023 07:48:39 SARS-COV-2 (COVID-19) vaccine, UNSPECIFIED 1 completed Not Available [facility] 03/27/2023 07:48:39 Influenza, split virus, trivalent, preservative 3 completed Not Available [facility] 03/27/2023 07:48:39 Pneumococcal conjugate PCV 13 2 completed Not Available [facility] 03/27/2023 07:48:39 Influenza, high-dose, quadrivalent, PF 2 completed Not Available [facility] 03/27/2023 07:48:39 Influenza, high-dose, quadrivalent, PF 2 completed Not Available [facility] 03/27/2023 07:48:39 Influenza, high-dose, quadrivalent, PF 0 completed Not Available [facility] 03/27/2023 07:48:39 Influenza, high-dose, trivalent, PF 4 completed Марина Londono MD [address] [facility], [address], [address], [facility] [employer] 02/05/2024 11:48:48 Past Encounters Encounter ID Performer Location Encounter Start Date Encounter Closed Date Diagnosis/Indication Diagnosis SNOMED-CT Code Diagnosis ICD10 Code Diagnosis Note [id number] Марина Londono MD [facility] Internal Med [facility] kaur [address] [facility] , [facility] [place] [address] 05/19/2020 00:00:00 05/19/2020 12:54:57 [id number] Lenny Santos MD [facility] [place] [address] [place] [address] 08/06/2020 00:00:00 08/06/2020 10:59:48 [id number] Марина Londono MD [facility] [address] [place] [address], [facility] [place] [address] 09/22/2020 00:00:00 09/22/2020 12:37:37 [id number] JUSTIN Bynum [facility] [place] [address] [place] [address] 09/24/2020 00:00:00 09/24/2020 11:55:42 [id number] Lenny Santos MD [facility] [address] [address] 11/03/2020 00:00:00 11/03/2020 10:55:00 [id number] JUSTIN Bynum [facility] [place] [address] [place] [address] 12/17/2020 00:00:00 12/17/2020 11:41:27 [id number] Lenny Santos MD [facility] [address] [address] 02/16/2021 00:00:00 02/16/2021 10:39:33 [id number] Марина Londono MD [facility] Internal Med [facility] [address] [address] 03/24/2021 00:00:00 03/24/2021 12:00:09 [id number] Lenny Santos MD [facility] [place] [address] [place] [address] 03/25/2021 00:00:00 03/25/2021 15:48:14 [id number] Lenny Santos MD [facility] [place] [address] [place] [address] 04/01/2021 00:00:00 04/01/2021 14:43:36 [id number] MD FLAVIO [facility] [place] [address] [place] [address] 04/08/2021 00:00:00 04/08/2021 14:59:12 [id number] MD FLAVIO [facility] [place] [address] [place] [address] 05/10/2021 00:00:00 05/16/2021 15:12:00 [id number] Justin Valdez MD [facility] [place] [address] [place] [address] 06/07/2021 00:00:00 06/07/2021 17:47:23 [id number] MD WILLOW [facility] [place] [address] [place] [address] 06/21/2021 00:00:00 06/21/2021 14:37:02 [id number] Justin Valdez MD [facility] [place] [address] [place] [address] 07/05/2021 00:00:00 07/05/2021 15:37:05 [id number] Justin Valdez MD [facility] [place] [address] [place] [address] 08/18/2021 00:00:00 08/18/2021 12:31:17 [id number] Марина Londono MD [facility] [place] [address] [address] 09/15/2021 00:00:00 09/15/2021 12:25:23 [id number] Justin Valdez MD [facility] [place] [address] [place] [address] 11/26/2021 00:00:00 12/05/2021 14:51:05 [id number] Марина Londono MD [facility] [place] [address] [address] 01/12/2022 00:00:00 01/12/2022 11:48:30 [id number] Justin Valdez MD [facility] [address] 02/17/2022 00:00:00 02/17/2022 11:55:09 [id number] Justin Valdez MD S_[address] [address] 04/07/2022 00:00:00 04/07/2022 11:36:44 [id number] Justin Valdez MD [facility]_[address] [address] 04/21/2022 00:00:00 04/21/2022 11:24:16 [id number] Justin Valdez MD [facility]_[address] [address] 05/05/2022 00:00:00 05/05/2022 12:24:34 [id number] Justin Valdez MD S_[address] [address] 05/26/2022 12:00:23 05/26/2022 13:24:56 History of right total knee replacement [id number] 220082 Z96.651 [id number] Марина Londono MD [facility] [place] [address] [address] 07/13/2022 11:32:36 07/13/2022 12:08:05 Benign essential hypertension 1340155 I10 Hypercholesterolemia 136 68960 E78.00 Type 2 winsome betes mellitus without complication 512189231 E11.9 Chronic ki dney disease stage 3 954922983 N18.30 Obese class II 709230907 1 03207 E66.9 Neuropathy due to diabetes mellitus 275666814 E11.40 [id number] Марина Londono MD [facility] [place] [address] [address] 11/16/2022 12:08:51 11/16/2022 12:41:38 Adult health examination 220459273 Z00.00 Screening for disorder 723147125 Z13.9 Benign ess ential hypertension 0169491 I10 Chronic ki dney disease stage 3 700505207 N18.30 Pure hypercholesterolemia 514468204 E78.00 Obese class II 081087314 1 79554 E66.9 Type 2 winsome betes mellitus without complication 703574883 E11.9 [id number] Марина Londono MD [facility] Internal Med [facility] [address] [address] 03/15/2023 12:00:11 03/15/2023 12:34:11 Benign essential hypertension 7320054 I10 Chronic ki dney disease stage 3 947643897 N18.30 Gastroesop hageal reflux disease 428130283 K21.9 Hypercholesterolemia 136 80299 E78.00 Type 2 winsome betes mellitus without complication 165499132 E11.9 Carcinoma of breast 2548 12743 C50.522 [id number] Justin Valdez MD [facility] [address] 03/30/2023 11:51:10 03/30/2023 12:38:56 History of right total knee replacement 7468447441 551032 Z96.206 [id number] Марина Londono MD [facility] Internal [facility] [address] [address] 10/02/2023 11:16:42 10/02/2023 12:04:08 Benign essential hypertension 4790773 I10 Chronic ki dney disease stage 3 766928469 N18.30 Hypercholesterolemia 136 58244 E78.00 Type 2 winsome betes mellitus without complication 179894042 E11.9 Carcinoma of breast 2548 33280 C50.919 Gout 73627762 M10.9 Obese class III 71856186 5 E66.01 [id number] Марина Londono MD [facility] Internal Med [facility] [address] [address] 02/05/2024 11:02:15 02/05/2024 11:57:31 Adult health examination 558499717 Z00.00 Screening for disorder 268752053 Z13.9 Administra tion of influenza vaccine 86823375 Z23 Benign ess ential hypertension 3407904 I10 Hypercholesterolemia 136 91717 E78.00 Chronic ki dney disease stage 3 201174746 N18.30 Obese class II 940637134 1 68781 E66.9 [id number] Darrion Aranda DPM [facility] [place] [address] [place] [address] 04/04/2024 13:52:38 04/05/2024 13:49:02 Diabetic peripheral neuropathy 351133646 E11.40 educated on neuropathy recommend continuing over-the-c ounter alpha lipoic acid and gabapentin per PCPcheck feet daily for wounds infectionM onitor and control glucose well to prevent worseningf ollow-up in 4 months Peripheral vascular disease 956055624 I73.9 Obtain vascular testingfol low-up to review Ex-smoker 7164198 Z87.89 1 educated on side effects of smoking recommend do not restart smoking [id number] Марина Londono MD [facility] Primary Care [facility] [address] [facility] [address] [place] [address] 05/09/2024 14:49:54 05/09/2024 15:39:51 Lumbar radiculopathy 091523421 M54.16 Benign ess ential hypertension 7036513 I10 Chronic ki dney disease stage 3 817219830 N18.30 Hypercholesterolemia 136 78109 E78.00 Type 2 winsome betes mellitus without complication 339162831 E11.9 Obese class II 239998937 1 90733 E66.9 [id number] Марина Londono MD [facility] Internal Med [facility] [address] [facility], [facility] [address] [place] [address] 06/17/2024 15:51:11 06/17/2024 16:24:47 Benign essential hypertension 6876725 I10 Hypercholesterolemia 136 08455 E78.00 Obese class II 574931046 1 80297 E66.9 Type 2 winsome betes mellitus without complication 774960792 E11.9 [id number] Darrion Aranda DPM [facility] [place] [address] [place] [address] 08/01/2024 12:12:50 08/02/2024 11:40:11 Diabetic peripheral neuropathy 100469612 E11.40 educated on neuropathy recommend continuing over-the-c ounter alpha lipoic acid and gabapentin per PCPcheck feet daily for wounds infectionM onitor and control glucose well to prevent worseningf ollow-up in 1 year Dystrophia unguium 33188 009 L60.3 nails debrided without incident Lumbar radiculopathy 128 178283 M54.16 Peripheral vascular disease 456644464 I73.9 Obtain vascular testing- resultsABI - normalpend ing duplex ultrasound arterial Health Concerns Section Related Observation LastModified by Organization Detai ls LastModified Time None Recorded Concern Status LastModified by Organization Details LastModified Time None Recorded Advance Directives Directive Y: Payers Insurance Date Sequence Insurance Name Policy Number Policy Summers Covered Member ID Summers Member ID Guarantor Name 07/29/2024 1 [employer] (MEDICARE REPLACEMENT /ADVANTAGE - PPO) [id number] 1 Tri Hanley [id number] Tri Hanley Notes Date Note Type Note Provider Name and Address Organization Details Recorded Time 02/05/2024 text/html Patient Name: Samantha Kwan Jeronimoate Of Service: Monday ( 02.05.2024 ): 1950 Age: 73 There has been approximately a 7 lb weight loss since 10/02/2023. This represents approximately a 3.3% change in weight. Weight change attributable to lifestyle changes. Vital Signs:Blood Pressure: Sitting Rt. Arm 120/74Pulse: Sitting 106 /min and RegularRespiratory Rate: 16Height 61 in or 1.5 mWeight 208 lb or 94.3 kgBMI 39.3Temperature: 97 F or 36.1 CDCCT HAIC: 7.4 Calculated MB mg%Pulse Oximetry: 96 % at rest on no oxygen Chief Complaint: Addressed in HPI Problems or conditions discussed in the HPI were the only ones reviewed during the encounter.Only social and family history addressed in the HPI were reviewed during this encounter. A significant, separate E/M service was performed to evaluate the current and new problems. Attendant(s): NoneConstitutional and Systemic Symptoms:none Medication Reconciliation: from medication list. 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 History of Present Illness Reviewed the findings of the preventative health visit. Addressed all areas with the patient, patient's family or caregivers. Preventative examinations and testing colonic neoplasm screening, mammograms and DEXA Scan all reviewed and ordered where patient was amenable to the recommendations. Cognitive function was normal. Depression addressed and where necessary medications were adjusted or instituted. End of life and living will briefly discussed with patient and where these can be filled out and legally executed. Other blood and imaging studies were ordered if considered necessary. Other recommendations may be found in the encounter note. #1. Essential Hypertension: Stage: Stage I Interval Neurological Complaints no headaches, dizziness, weakness, visual changes, ataxia, aphasia and apraxia. No shortness of breath, orthopnea or cardiovascular symptoms. No other symptoms related to end organ damage. Pressure has been under fair control. Currently normal. No other end organ symptoms or findings. Therapy reviewed regarding management of hypertension and includes salt restriction and Lisinopril. #2. Type II Hypercholesterolaemia: Currently taking medication and tolerating well. No interval complaints of any muscle pain or arthralgia. No significant liver changes with medications. Last lipid panel: fair control. Therapy reviewed regarding treatment of cholesterol management and include diet and Lipitor. #3. Type II Diabetes: Has had no polyuria polyphagia or polydipsia. Has had no hypoglycemic like responses. No new history of any numbness, tingling, weakness or visual problems. No nausea, anorexia or other constitutional symptoms. There has been no foot problems or non healing lesions. The last [facility] was [facility] HAIC: 7.4 Calculated MB mg%. CGM: No. Average blood sugars unknown. Checking sugars : not at all. Medication Types Include: diet, GLP-1 and SGLT2 inhibitors Secondary complications include none. Macro-vascular complications include Farxiga and Ozempic. Therapy reviewed regarding diabetic management and include good Compliance: JOSH inhibitors Renal Protection: statins Lipid management: A1 Urinary microalbumin: has seen eye doctor within the last year . Ophthalmological: Intermediate Control 7.1 - 8.0. Control: followed #4. History of chronic renal failure currently doing well. Currently is CKD-3a by a director traffic and planning. Stage: A1. Albumin Stage: Class 2 Obesity BMI 35-39.99. There has been no change in urine output or color. No fever or chills. #5. Hx of obesity. Currently no. Has tried numerous dietary support and supplements with no benefit. Instructed on the health consequences of the obese status particularly cancer - diabetes and heart disease. Discussed other modalities of weight loss No . Potential candidate for bariatric surgery: No and was offered to be evaluated and instructed by mechanical inspector on weight loss diet. Wishes to be evaluated by Dietary: No and was offered to be evaluated and instructed by mechanical inspector on weight loss diet. Active Medication ListNeurontin 300 MG CAPSULE Two BidImodium 2 MG (CAPSULE - ORAL) One Twice A Day For Irritable Bowel SymptomsLisinopril 20 MG (TABLET - ORAL) One DailyOzempic 2.68 MG/ML INJECTION, SOLUTION 2 Mg WeeklyFerrous Sulfate 325 MG TABLET Once DailyCalcitriol 0.25MCG (CAPSULE - ORAL) One DialyVitamin D 50,000 IU (CAPSULE - ORAL) One WeeklyMag-ox 400 400 MG One DailyFarxiga 5 MG TABLET, FILM COATED One DailyAllopurinol 100 MG TABLET Once DailyLipitor 40 MG TABLET, FILM COATED Once DailyAnastrozole 1 MG (TABLET - ORAL) Daily Vaccination and Immunization( ) 2023- INFLUENZA(X) 2020- COVID MODERNA( ) 2021-09 PREVNAR 13 GC( ) 2022- PNEUMOVAX Surgical [id number] Lt. [id number] [id number] Lf. [id number] Cholecystectomy Preventative Testing( ) 11/20/2023 Albumin 4.3 G/DL( ) 11/20/2023 Micro Albumin 13.0 MG/L( ) 11/20/2023 HAIC 7.4 % H( ) 02/15/2023 Mammogram 02/15/2025( ) 10/29/2022 DEXA Scan 10/29/2024( ) 10/01/2021 Ophthalmology( ) 04/30/2018 Colonoscopy & EGD (10 Years) 04/30/2028 Social HistorySOCIAL HISTORY:Marital Status: MarriedSmoking Hx: .5 packs of cigarettes per day for 15 years. 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 Family HistoryFAMILY HISTORY:Mother 75 years old unknown health statusFather 45 years old2 Brothers 2 Living1 Sisters 1 Living Active Medication ListNeurontin 300 MG CAPSULE Two BidImodium 2 MG (CAPSULE - ORAL) One Twice A Day For Irritable Bowel SymptomsLisinopril 20 MG (TABLET - ORAL) One DailyOzempic 2.68 MG/ML INJECTION, SOLUTION 2 Mg WeeklyFerrous Sulfate 325 MG TABLET Once DailyCalcitriol 0.25MCG (CAPSULE - ORAL) One DialyVitamin D 50,000 IU (CAPSULE - ORAL) One WeeklyMag-ox 400 400 MG One DailyFarxiga 5 MG TABLET, FILM COATED One DailyAllopurinol 100 MG TABLET Once DailyLipitor 40 MG TABLET, FILM COATED Once DailyAnastrozole 1 MG (TABLET - ORAL) Daily Vaccination and Immunization( ) 2023- INFLUENZA(X) 2021-02 COVID MODERNA( ) 2021-09 PREVNAR 13 GC( ) 2022-11 PNEUMOVAX Surgical [id number] Lt. [id number] [id number] Lf. [id number] Cholecystectomy Preventative Testing( ) 11/20/2023 Albumin 4.3 G/DL( ) 11/20/2023 Micro Albumin 13.0 MG/L( ) 11/20/2023 HAIC 7.4 % H( ) 02/15/2023 Mammogram 02/15/2025( ) 10/29/2022 DEXA Scan 10/29/2024( ) 10/01/2021 Ophthalmology( ) 04/30/2018 Colonoscopy & EGD (10 Years) 04/30/2028 Social HistorySOCIAL HISTORY:Marital Status: MarriedSmoking Hx: .5 packs of cigarettes per day for 15 years. 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 Patient is a 73-year-old female she presents the office with complaints of numbness tingling and burning of her feet. Patient states she has been a diabetic for approximately 10 years she states she has been a smoker for approximately 20 years but stopped smoking about 5 years ago. Patient was a pack-a-day smoker. Patient states that she occasionally has cramping of her lower extremity she denies any recent cramping with weight-bearing. Patient describes the pain in her feet is 8/10 she describes a shooting stabbing burning throbbing aching and sharp in nature. Patient states she has been seen by her primary care doctor for this condition to which she was placed on gabapentin she states the gabapentin is helping but has not completely eradicated the issue I did speak to the patient length about neuropathy and side effects. Patient understands that her symptoms may not completely resolved. Patient denies any other complaints. Darrion Aranda DPM [address], [facility] [address], [place], [address], [facility] 04/04/2024 15:49:34 05/09/2024 text/html Patient Name: Samantha Kwan [facility] Of Service: April ( 05.09.2024 ): 1950 Age: 73 There has been approximately a 6 lb weight loss since 02/05/2024. This represents approximately a 2.9% change in weight. Weight change attributable to lifestyle changes. Vital Signs:Blood Pressure: Sitting Rt. Arm 120/82Pulse: Sitting 84 /min and RegularRespiratory Rate: 16Height 61 in or 1.5 mWeight 202 lb or 91.6 kgBMI 38.2Temperature: 97 F or 36.1 CPulse Oximetry: 96 % at rest on no oxygen Chief Complaint: Addressed in HPI Problems or conditions discussed in the HPI were the only ones reviewed during the encounter.Only social and family history addressed in the HPI were reviewed during this encounter. Attendant(s): NoneConstitutional and Systemic Symptoms:none Medication Reconciliation: from medication list. [id number]: Nerve conduction studies demonstrates evidence sensory motor axonal neuropathy but no evidence of any superimposed lumbar sacral radiculopathy. History of Present Illness #1. Complaining of a several week history of lower back pain with radiation initially down both legs but now confined to the left leg. Is pain and discomfort in the lower lumbar spine radiating down the posterior aspect of the left leg. Seems to be aggravated by bending stooping walking and weight-bearing. Does have to stop intermittently and then continue to walk. Denies any saddle anesthesia. There has been no incontinence of urine or stool.: #2. Essential Hypertension: Stage: Stage I Interval Neurological Complaints no headaches, dizziness, weakness, visual changes, ataxia, aphasia and apraxia. No shortness of breath, orthopnea or cardiovascular symptoms. No other symptoms related to end organ damage. Pressure has been under excellent control. Currently normal. No other end organ symptoms or findings. Therapy reviewed regarding management of hypertension and includes salt restriction and Lisinopril. #3. Type II Hypercholesterolaemia: Currently taking medication and tolerating well. No interval complaints of any muscle pain or arthralgia. No significant liver changes with medications. Last lipid panel: fair control. Therapy reviewed regarding treatment of cholesterol management and include diet and Lipitor. #4. Type II Diabetes: Has had no polyuria polyphagia or polydipsia. Has had no hypoglycemic like responses. No new history of any numbness, tingling, weakness or visual problems. No nausea, anorexia or other constitutional symptoms. There has been no foot problems or non healing lesions. The last HAIC was No. CGM: 100-115 mg%. Average blood sugars infrequently. Checking sugars : GLP-1 and SGLT2 inhibitors. Medication Types Include: none Secondary complications include none. Macro-vascular complications include Farxiga and Ozempic. Therapy reviewed regarding diabetic management and include good Compliance: JOSH inhibitors Renal Protection: statins Lipid management: A1 Urinary microalbumin: has seen eye doctor within the last year . [facility] HAIC: 7.4 Calculated MB mg%. Control: followed #5. History of chronic renal failure currently doing well. Currently is CKD-3b by a director traffic and planning. Stage: A1. Albumin Stage: Class 2 Obesity BMI 35-39.99. There has been no change in urine output or color. No fever or chills. #6. Hx of obesity. Currently currently using GLP-1 Inhibitors with diet and doing well. Has tried numerous dietary support and supplements with no benefit. Instructed on the health consequences of the obese status particularly cancer - diabetes and heart disease. Discussed other modalities of weight loss No . Potential candidate for bariatric surgery: No and was offered to be evaluated and instructed by mechanical inspector on weight loss diet. Wishes to be evaluated by Dietary: No and was offered to be evaluated and instructed by mechanical inspector on weight loss diet. Active Medication ListNeurontin 300 MG CAPSULE Two BidImodium 2 MG (CAPSULE - ORAL) One Twice A Day For Irritable Bowel SymptomsLisinopril 20 MG (TABLET - ORAL) One DailyOzempic 2.68 MG/ML INJECTION, SOLUTION 2 Mg WeeklyFerrous Sulfate 325 MG TABLET Once DailyCalcitriol 0.25MCG (CAPSULE - ORAL) One DialyVitamin D 50,000 IU (CAPSULE - ORAL) One WeeklyMag-ox 400 400 MG One DailyFarxiga 5 MG TABLET, FILM COATED One DailyAllopurinol 100 MG TABLET Once DailyLipitor 40 MG TABLET, FILM COATED Once DailyAnastrozole 1 MG (TABLET - ORAL) Daily Vaccination and Immunization( ) 2024-01 INFLUENZA(X) 2021-02 COVID MODERNA( ) 2021-09 PREVNAR 13 GC( ) 2022-11 PNEUMOVAX Surgical [id number] Lt. [id number] [id number] Lf. [id number] Cholecystectomy Preventative Testing( ) 03/21/2024 Albumin 4.4 G/DL( ) 03/21/2024 Micro Albumin 6.5 MG/L( ) 11/20/2023 HAIC 7.4 % H( ) 02/15/2023 Mammogram 02/15/2025( ) 10/29/2022 DEXA Scan 10/29/2024( ) 10/01/2021 Ophthalmology( ) 04/30/2018 Colonoscopy & EGD (10 Years) 04/30/2028 Social HistorySOCIAL HISTORY:Marital Status: MarriedSmoking Hx: .5 packs of cigarettes per day for 15 years. 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 Family HistoryFAMILY HISTORY:Mother 75 years old unknown health statusFather 45 years old2 Brothers 2 Living1 Sisters 1 Living Active Medication ListNeurontin 300 MG CAPSULE Two BidImodium 2 MG (CAPSULE - ORAL) One Twice A Day For Irritable Bowel SymptomsLisinopril 20 MG (TABLET - ORAL) One DailyOzempic 2.68 MG/ML INJECTION, SOLUTION 2 Mg WeeklyFerrous Sulfate 325 MG TABLET Once DailyCalcitriol 0.25MCG (CAPSULE - ORAL) One DialyVitamin D 50,000 IU (CAPSULE - ORAL) One WeeklyMag-ox 400 400 MG One DailyFarxiga 5 MG TABLET, FILM COATED One DailyAllopurinol 100 MG TABLET Once DailyLipitor 40 MG TABLET, FILM COATED Once DailyAnastrozole 1 MG (TABLET - ORAL) Daily Vaccination and Immunization( ) 2023- INFLUENZA(X) 2020- COVID MODERNA( ) 2021-09 PREVNAR 13 GC( ) 2022-11 PNEUMOVAX Surgical [id number] Lt. [id number] Lf. [id number] Cholecystectomy Preventative Testing( ) 03/21/2024 Albumin 4.4 G/DL( ) 03/21/2024 Micro Albumin 6.5 MG/L( ) 11/20/2023 HAIC 7.4 % H( ) 02/15/2023 Mammogram 02/15/2025( ) 10/29/2022 DEXA Scan 10/29/2024( ) 10/01/2021 Ophthalmology( ) 04/30/2018 Colonoscopy & EGD (10 Years) 04/30/2028 Social HistorySOCIAL HISTORY:Marital Status: MarriedSmoking Hx: .5 packs of cigarettes per day for 15 years. 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 Family HistoryFAMILY HISTORY:Mother 75 years old unknown health statusFather 45 years old2 Brothers 2 Living1 Sisters 1 Living TEST RESULT RANGE UNITSCBC/COMPLETE BLD COUNT W/DIFF Date: 03/21/2024WHITE BLOOD CELLS 9.4 4.2-10.8 X10'3/ULHEMOGLOBIN 12.2 12.0-15.6 G/DLHEMATOCRIT 40.3 35.7-45.7 %PLATELETS 232 150-400 X10'3/ULCOMPREHENSIVE METABOLIC PANEL Date: 03/21/2024SODIUM 138 137-145 MMOL/LPOTASSIUM 4.8 3.5-5.1 MMOL/LGLUCOSE 122 70-99 MG/DLBUN 21 8-19 MG/DLCREATININE 1.49 0.66-1.25 MG/DLGFR 34BILIRUBIN, TOTAL 0.60 0.20-1.30 MG/DLALKALINE PHOSPHATASE 110 38-126 U/LALANINE AMINOTRANSFERASE 34 0-35 U/LASPARTATE AMINOTRANSFERASE 29 15-37 U/LHEMOGLOBIN A1C Date: 11/20/2023HA1C 7.4 4.0-6.0 % Марина Londono MD [address], [facility] [address], [place], [address], [place] [facility] [employer] 05/09/2024 15:31:04 06/17/2024 text/html Patient Name: Samantha Brown Of Service: Monday ( 06.17.2024 ): 1950 Age: 73 There has been approximately a 2 lb weight gain since 05/09/2024. This represents approximately a 1.0% change in weight. Weight change attributable to lifestyle changes. Vital Signs:Blood Pressure: Sitting Rt. Arm 122/78Pulse: Sitting 100 /min and RegularRespiratory Rate: 16Height 61 in or 1.5 mWeight 204 lb or 92.5 kgBMI 38.5Temperature: 87 F or 30.6 CPulse Oximetry: 95 % at rest on no oxygen Chief Complaint: Addressed in HPI Problems or conditions discussed in the HPI were the only ones reviewed during the encounter.Only social and family history addressed in the HPI were reviewed during this encounter. Attendant(s): NoneConstitutional and Systemic Symptoms:none Medication Reconciliation: from medication list. 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 05-20-2024: MRI of the lumbar spine no fracture. Degenerative changes with moderate spinal canal stenosis at L3-L4, L2-L3 and L4-L5. Significant neural foraminal stenosis at L2-L3 bilaterally, L3-L4 bilaterally, L4-L5 on the left and L5-S1 bilaterally. Does not appear to be surgical at this point. Recommend pain management History of Present Illness #1. Essential Hypertension: Stage: Stage I Interval Neurological Complaints no headaches, dizziness, weakness, visual changes, ataxia, aphasia and apraxia. No shortness of breath, orthopnea or cardiovascular symptoms. No other symptoms related to end organ damage. Pressure has been under fair control. Currently normal. No other end organ symptoms or findings. Therapy reviewed regarding management of hypertension and includes salt restriction and Lisinopril. #2. Type II Hypercholesterolaemia: Currently taking medication and tolerating well. No interval complaints of any muscle pain or arthralgia. No significant liver changes with medications. Last lipid panel: fair control. Therapy reviewed regarding treatment of cholesterol management and include diet and Lipitor. #3. Type II Diabetes: Has had no polyuria polyphagia or polydipsia. Has had no hypoglycemic like responses. No new history of any numbness, tingling, weakness or visual problems. No nausea, anorexia or other constitutional symptoms. There has been no foot problems or non healing lesions. The last HAIC was DCCT HAIC: 7.5 Calculated MB mg%. CGM: No. Average blood sugars 125-150 mg%. Checking sugars : approximately once daily. Medication Types Include: GLP-1 and SGLT2 inhibitors Secondary complications include none. Macro-vascular complications include none. Therapy reviewed regarding diabetic management and include Farxiga and Ozempic Compliance: good Renal Protection: JOSH inhibitors Lipid management: statins Urinary microalbumin: A1 . Ophthalmological: has seen eye doctor within the last year. Control: Intermediate Control 7.1 - 8.0 #4. Hx of obesity. Currently Class 2 Obesity BMI 35-39.99. Has tried numerous dietary support and supplements with no benefit. Instructed on the health consequences of the obese status particularly cancer - diabetes and heart disease. Discussed other modalities of weight loss currently using GLP-1 Inhibitors with diet and doing well . Potential candidate for bariatric surgery: No. Wishes to be evaluated by Dietary: No and was offered to be evaluated and instructed by mechanical inspector on weight loss diet. Active Medication ListNeurontin 300 MG CAPSULE Two BidImodium 2 MG (CAPSULE - ORAL) One Twice A Day For Irritable Bowel SymptomsLisinopril 20 MG (TABLET - ORAL) One DailyOzempic 2.68 MG/ML INJECTION, SOLUTION 2 Mg WeeklyFerrous Sulfate 325 MG TABLET Once DailyCalcitriol 0.25MCG (CAPSULE - ORAL) One DialyVitamin D 50,000 IU (CAPSULE - ORAL) One WeeklyMag-ox 400 400 MG One DailyFarxiga 5 MG TABLET, FILM COATED One DailyAllopurinol 100 MG TABLET Once DailyLipitor 40 MG TABLET, FILM COATED Once DailyAnastrozole 1 MG (TABLET - ORAL) Daily Vaccination and Immunization( ) 2024-01 INFLUENZA(X) 2020- COVID MODERNA( ) 2021-09 PREVNAR 13 GC( ) 2022-11 PNEUMOVAX Surgical [id number] Lt. [id number] [id number] Lf. [id number] Cholecystectomy Preventative Testing( ) 05/20/2024 Micro Albumin <6.0 MG/L( ) 05/16/2024 Albumin 4.7 G/DL H( ) 05/16/2024 HAIC 7.5 % H( ) 02/15/2023 Mammogram 02/15/2025( ) 10/29/2022 DEXA Scan 10/29/2024( ) 10/01/2021 Ophthalmology( ) 04/30/2018 Colonoscopy & EGD (10 Years) 04/30/2028 Social HistorySOCIAL HISTORY:Marital Status: MarriedSmoking Hx: .5 packs of cigarettes per day for 15 years. 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 Patient is a 73-year-old female she returns the office for follow-up on diabetic foot care and to review arterial studies. Patient states overall she is doing well she continues have numbness and tingling in the feet. Patient denies any recent wounds or injury of the foot. Patient denies any intermittent claudication walking or rest pain. Patient denies any other complaints and would like her nails cut. Darrion Aranda DPM [address], [address], [place], [address], [facility] 08/01/2024 15:11:22 OBGyn Episode No OBEpisode recorded.
--- OUTSIDE RECORDS SUMMARY | 2024-09-11 15:21 | XMS_ITS | Clinical Summary ---
Author Organization [facility] Address [address] [facility] [place] [address] Care Team Providers Care Evaporator Name Role Phone Unavailable Primary Care Provider Unavailabl e Source Comments [facility],non-owned Affiliates and Associated Physician Practices is amultiple site organization consisting of ambulatory clinics and hospital sitesin [place], [place], [place] and [place]. This disclosure is being madepursuant to the Care Everywhere program and may not contain all information available regarding this patient. Last updated 17.[facility] Social History Tobacco Use Types Packs/Day Years Used Date Smoking Tobacco: Never Assessed Comments Unknown Sex and Gender Information Value Date Recorded Sex Assigned at Not on file Legal Sex Female 12:11 PM CDT Gender Identity Not on file Sexual Orientation Not on file Plan of Treatment Health Maintenance Due Date Last Done Comments BONE DENSITY TESTING 1950 COLOGUARD (AGES 45-75) - COL ON CA SCREENING 1950 COLON MONITORING 1950 COLONOSCOPY - COLON CA SCREENING 1950 CT COLONOGRAPHY - COLON CA SCREENING 1950 Colorectal Cancer Screening 1950 FIT - COLON CA SCREENING 1950 FLEX SIG - COLON CA SCREENING 1950 LIPID TESTING 1950 MAMMOGRAM 1950 HEPATITIS C SCREENING 10/08/1969 DTAP/TDAP/TD VACCINES (1 - Tdap) 10/12/1970 PNEUMOCOCCAL VACCINE 50+ (1 of 1 - PCV) 10/12/2001 ZOSTER VACCINE (1 of 2) 10/12/2001 COVID-19 VACCINE ( - 2023-2 5 season) 2023 DEPRESSION SCREENING 03/13/2024 INFLUENZA VACCINE (Season Ended) 2024 Respiratory Syncytial Virus (RSV) Vaccine Pt: or over 60 yrs (1 - 1-dose 75+ series) 10/12/2026 HEPATITIS B VACCINE Aged Out No longe r eligible based on patient's age to complete this topic HIB VACCINE Aged Out No longer eligi ble based on patient's age to complete this topic HPV VACCINE Aged Out No longer eligi ble based on patient's age to complete this topic MENINGOCOCCAL (Group B) VACC INE SHARED DECISION-MAKING Aged Out No longer eligibl e based on patient's age to complete this topic MENINGOCOCCAL GROUPS A/C/Y/W VACCINE Aged Out No longer eligible b ased on patient's age to complete this topic Insurance [employer]ET[employer]
--- OUTSIDE RECORDS SUMMARY | 2024-09-11 15:21 | XMS_ITS ---
Author Organization [facility] Address [address] [facility] [address] [facility] [address] [place] [address] Care Team Providers Care Reroller Hand Name Role Phone Alex Salinas Primary Care Provider [phone] Problems Problem Type SNOMED Code ICD Code Onset Dates Problem Status W/U Status Risk Notes Problem Chronic kidney disease, stage 3a (N18.31) Active confirmed Encounters Encounter Location Date Provider Diagnosis [place] [facility] [address] [facility] [address] [place] [address] 08/09/2024 Alex Salinas Chronic kidney disea se, stage 3a N18.31 ; Essential hypertension I10 ; Renal osteodystrophy N25.0 ; Secondary hyperparathyroidism, not elsewhere classified E21.1 ; Obesity, unspecified E66.9 ; Obstructive sleep apnea (adult) (pediatric) G47.33 ; Hyperlipidemia, unspecified E78.5 ; Type 2 diabetes mellitus with diabetic chronic kidney disease E11.22 ; Hyperparathyroidism, unspecified E21.3 and Malignant neoplasm of unspecified site of unspecified female breast C50.919 Assessments Encounter Date Diagnosis (ICD Code) Assessment Notes Treatment Notes Treatment Clinical Notes Section Notes 08/09/2024 Chronic kidney disease, stage 3a (ICD-10 - N18.31) 08/09/2024 Essential hypertension (ICD-10 - I10) 08/09/2024 Renal osteodystrophy (ICD-10 - N25.0) 08/09/2024 Secondary hyperparathyroidism , not elsewhere classified (ICD-10 - E21.1) 08/09/2024 Obesity, unspecified (ICD-10 - E66.9) 08/09/2024 Obstructive sleep apnea (adult) (pediatric) (ICD-10 - G47.33) 08/09/2024 Hyperlipidemia, unspecified (ICD-10 - E78.5) 08/09/2024 Type 2 diabetes mellitus with diabetic chronic kidney disease (ICD-10 - E11.22) 08/09/2024 Hyperparathyroidism , unspecified (ICD-10 - E21.3) 08/09/2024 Malignant neoplasm of unspecified site of unspecified female breast (ICD-10 - C50.919) Plan Of Treatment Next Appt Details Provider Name:Alex Salinas , 10/11/2024 02:30:00 PM, [address] [facility], [facility] [address], [address], Progress Notes * INGRIS HANLEYOB:1950 (73 yo F)Acc No.[id number]:08/09/2024 Progress Notes Patient: TRI HONG Provider: Montana DANG MD, F.A.C.P, F.A.S.N. :1950 A ge:73 Y S ex:Female Date:08/09/2024 Address:[address] [place] [address] Subjective: * Chief Complaints: * * Medical History: Objective: * Vitals: Assessment: * Assessment: 1. C hronic kidney disease, stage 3a - N18.31 (Primary) 2 . E ssential hypertension - I10 3 . R enal osteodystrophy - N25.0 4 . S econdary hyperparathyroidism, not elsewhere classified - E21.1 5 . O besity, unspecified - E66.9 6 . O bstructive sleep apnea (adult) (pediatric) - G47.33 7 . H yperlipidemia, unspecified - E78.5 8 . T ype 2 diabetes mellitus with diabetic chronic kidney disease - E11.22 9 . H yperparathyroidism, unspecified - E21.3 1 0. M alignant neoplasm of unspecified site of unspecified female breast - C50.919 Plan: * Treatment: * Billing Information: * Visit Code: 90319 Office Visit, Est Pt., Level 4. * Procedure Codes: * Electronic signature of Glenny Salinas MD on 09/11/2024 at 03:21 PM CDT Sign off status: Pending * Provider: Montana DANG MD, F.A.C.P, F.A.S.N. Date: 0 08/09/2024 Generated for Printing/Faxing/eTransmitting on: 0 09/11/2024 03:21 PM CDT
--- OUTSIDE RECORDS SUMMARY | 2024-09-11 15:21 | XMS_ITS | Encounter Summary ---
Author Organization [facility] Address [address] [place] [address] Care Team Providers Care Lead Pharmacy Technician Name Role Phone Richard Londono MD Primary Care Provider [phone] Encounter Details Date Type Department Care Team (Late st Contact Info) Description 06/19/2018 Chart Note [facility] Radiation Therapy [address] [place] [address] [place] [address] [place] [address] Social History Tobacco Use Types Packs/Day Years Used Date Smoking Tobacco: Former Cigarettes 0.3 2 0 12/02/2015 - 12/01/2017 Smokeless Tobacco: Never Alcohol Use Standard Drinks/Week Comments No 0 (1 standard drink = 0.6 oz pur e alcohol) Comments No Sex and Gender Information Value Date Recorded Sex Assigned at Not on file Legal Sex Female 5:23 PM CDT Gender Identity Not on file Sexual Orientation Not on file documented as of this encounter Plan of Treatment Upcoming Encounters Date Type Department Care Team (Late st Contact Info) Description 09/19/2024 10:15 AM CDT Office Visit [facility] and Hematology - [facility] [address] [facility] [address] [place] [address] Emir uRggiero MD [address] [facility] [address] [place] [address] documented as of this encounter Visit Diagnoses Not on filedocumented in this encounter Care Teams Lead Pharmacy Technician Relationship Specialty Start Date End Date Richard Londono MD [address] [facility] [address] [place] [address] PCP - General Internal Medicine 10/24/17 documented as of this encounter
--- OUTSIDE RECORDS SUMMARY | 2024-09-11 15:21 | XMS_ITS | Clinical Summary ---
Author Organization [facility] Address Formerly [facility], [id number] [place] [address] Care Team Providers Care Trim Operator Name Role Phone Richard Londono MD Primary Care Provider [phone] Allergies No known active allergies Medications allopurinol (ZYLOPRIM) 100 MG tablet Take 1 tablet (100 mg total) by mouth daily. 4 Active anastrozole (ARIMIDEX) 1 MG tablet Take 1 tablet by mouth daily. Active atorvastatin (LIPITOR) 40 MG tablet Take 1 tablet (40 mg total) by mouth daily. 4 Active vitamin D2, ergocalciferol , (DRISDOL) 1.25 mg capsule TAKE 1 CAPSULE BY MOUTH ONE TIME PER WEEK FOR 90 DAYS 4 Active furosemide (LASIX) 40 MG tablet Take 1 tablet (40 mg total) by mouth daily. 3 Active gabapentin (NEURONTIN) 300 MG capsule Take 1 capsule (300 mg total) by mouth 3 (three) times daily. 4 Active Blood Glucose Monitoring Suppl (ONETOUCH VERIO REFLECT) w/Device Kit USE TO TEST ONCE DEAILY 3 Active ONETOUCH VERIO test strip use to test once daily 4 Active Lancets (ONETOUCH DELICA PLUS [id number]) Misc use to test once daily 3 Active lisinopril (PRINIVIL) 20 MG tablet 4 Active loperamide (IMODIUM) 2 MG capsule Take 1 capsule (2 mg total) by mouth 2 (two) times daily. 4 Active magnesium oxide (MAG-OX) 400 (240 Mg) MG tablet TAKE 2 TABLETS BY MOUTH TWICE A DAY X10 DAYS 3 Active OZEMPIC 1 mg/dose injection (PEN) INJECT 1 MG SUBCUTANEOUSLY ONCE EACH WEEK ON THE SAME DAY EACH WEEK 4 Active Alpha Lipoic Acid 200 MG Cap Active gabapentin (NEURONTIN) 300 MG capsuleIndicat ions:Neuropath y Take one capsule in morning, one capsule afternoon and two at bed time for a week. Then do one capsule in morning, two in the afternoon and two at bed time for a week. Then do two capsules three times a day. 180 capsule 11 4 Active Active Problems No known active problems Social History Tobacco Use Types Packs/Day Years Used Date Smoking Tobacco: Former Cigarettes Passive Smoke Exposure: Never Smokeless Tobacco: Never Tobacco Cessation:Counseling Given: Not Answered Alcohol Use Standard Drinks/Week Comments Not Asked 0 (1 standard drink = 0.6 oz pur e alcohol) holidays Comments No Sex and Gender Information Value Date Recorded Sex Assigned at Not on file Legal Sex Female 3:06 PM CDT Gender Identity Not on file Sexual Orientation Not on file Last Filed Vital Signs Vital Sign Reading Time Taken Comments Blood Pressure 125/66 02/06/2024 9:50 AM [employer] Pulse 96 02/06/2024 9:50 AM [employer] Temperature 36.7 C (98.1 F) 02/06/2024 9:50 AM [employer] Respiratory Rate 16 08/01/2023 11:07 AM CDT Oxygen Saturation 94% 02/06/2024 9:50 AM [employer] Inhaled Oxygen Concentration - - Weight 92.1 kg (203 lb 1.6 oz) 02/06/2024 9:50 A M [employer] Height 154.9 cm (5' 1) 02/06/2024 9:50 AM [employer] Body Mass Index 38.38 02/06/2024 9:50 AM [employer] Plan of Treatment Health Maintenance Due Date Last Done Comments Colorectal Cancer Screening Colonoscopy (10 Years) 1950 Hepatitis C 10/12/1969 DTaP, Tdap and Td Vaccines (1 - Tdap) 10/12/1970 Zoster Vaccines (1 of 2) 10/12/2001 Annual Medicare Wellness Visit 10/12/2016 Mammogram Screening 02/11/2023 02/11/2021, 10/08/2019, 11/08/2017 COVID-19 Vaccine ( season) 2023 02/24/2021, 02/24/2021, 06/06/2020, Additional history exists PHQ-2 (Physician [place]) 03/13/2024 RSV Immunization or 60+ Years (1 - 1-dose 75+ series) 10/12/2026 Dexa Scan (General) Completed 07/03/2019, 0 Pneumococcal Vaccine: 50+ Years Completed 11/18/2022, 09/15/2021 Meningococcal B Vaccine Aged Out No l onger eligible based on patient's age to complete this topic Meningococcal Vaccine Aged Out No kathy josiah eligible based on patient's age to complete this topic RSV Immunizations Under 20 Months Aged Out No longer eligible based on patient's age to complete this topic Insurance [employer] Care Teams Trim Operator Relationship Specialty Start Date End Date Richard Londono MD PCP - General INTERNAL MEDICINE 07/21/22
--- OUTSIDE RECORDS SUMMARY | 2024-09-11 15:21 | XMS_ITS ---
Author Organization [facility] Address [address] [facility] [address] [facility] [address] [place] [address] Care Team Providers Care Supervisor Bottle Machines Name Role Phone Alex Salinas Primary Care Provider Medications Medication SIG (Take, Route, Frequency, Duration) Notes Start Date End Date Status Lasix 40 MG 1 tablet Orally Once a day; Duration: 90 days 03/30/2022 Active Allopurinol 100 MG TAKE 1 TABLET BY SARTHAK TH EVERY DAY FOR 90 DAYS; Duration: 90 Active Vitamin D (Ergocalciferol) 1.25 MG (82328 UT) TAKE 1 CAPSULE BY MOUTH ONE TIME PER WEEK FOR 90 DAYS; Duration: 90 Active Calcitriol 0.25 MCG TAKE 1 CAPSULE BY MO UTH EVERY DAY FOR 90 DAYS; Duration: 90 Active Magnesium Oxide 400 MG TAKE 1 TABLET BY MOUTH EVERY DAY NEEDED; Duration: 30 Active Magnesium Oxide -Mg Supplement 400 (240 Mg) MG TAKE 2 TABLETS BY MOUTH TWICE A DAY X10 DAYS; Duration: 10 Active Problems Problem Type SNOMED Code ICD Code Onset Dates Problem Status W/U Status Risk Notes Problem Obstructive sleep apnea syndrome (disorder) (15391160) Obstructive sleep apnea (adult) (pediatric) (G47.33) Active confirmed Problem Hyperlipidemia (55347787) Hyperlipidemia, unspecified (E78.5) Active confirmed Encounters Encounter Location Date Provider Diagnosis [facility] [address] [facility] [address] [place] [address] 03/29/2024 Alex Salinas Chronic kidney disea se, stage 3a N18.31 ; Essential hypertension I10 ; Renal osteodystrophy N25.0 ; Obstructive sleep apnea (adult) (pediatric) G47.33 and Hyperlipidemia, unspecified E78.5 Assessments Encounter Date Diagnosis (ICD Code) Assessment Notes Treatment Notes Treatment Clinical Notes Section Notes 03/29/2024 Chronic kidney disease, stage 3a (ICD-10 - N18.31) 03/29/2024 Essential hypertension (ICD-10 - I10) 03/29/2024 Renal osteodystrophy (ICD-10 - N25.0) 03/29/2024 Obstructive sleep apnea (adult) (pediatric) (ICD-10 - G47.33) 03/29/2024 Hyperlipidemia, unspecified (ICD-10 - E78.5) Plan Of Treatment Next Appt Details Provider Name:Alex Salinas , 10/11/2024 02:30:00 PM, [address] [facility], [facility] [address], [place], [address], Progress Notes * INGRIS HANLEYOB:1950 (73 yo F)Acc No.[id number]:03/29/2024 Progress Notes Patient: TRI HONG Provider: Montana DANG MD, F.A.C.P, F.A.S.N. :1950 A ge:73 Y S ex:Female Date:03/29/2024 Address:[address] [place] [address] Subjective: * Chief Complaints: * * Medical History: * Medications: T aking Lasix 40 MG Tablet 1 tablet Orally Once a day , Taking Magnesium Oxide -Mg Supplement 400 (240 Mg) MG Tablet TAKE 2 TABLETS BY MOUTH TWICE A DAY X10 DAYS , Taking Calcitriol 0.25 MCG Capsule TAKE 1 CAPSULE BY MOUTH EVERY DAY FOR 90 DAYS , Taking Allopurinol 100 MG Tablet TAKE 1 TABLET BY MOUTH EVERY DAY FOR 90 DAYS , Taking Vitamin D (Ergocalciferol) 1.25 MG (39500 UT) Capsule TAKE 1 CAPSULE BY MOUTH ONE TIME PER WEEK FOR 90 DAYS , Taking Magnesium Oxide 400 MG Tablet TAKE 1 TABLET BY MOUTH EVERY DAY NEEDED Objective: * Vitals: Assessment: * Assessment: 1. C hronic kidney disease, stage 3a - N18.31 (Primary) 2 . E ssential hypertension - I10 3 . R enal osteodystrophy - N25.0 4 . O bstructive sleep apnea (adult) (pediatric) - G47.33 5 . H yperlipidemia, unspecified - E78.5 Plan: * Treatment: * Billing Information: * Visit Code: 41791 Office Visit, Est Pt., Level 4. * Procedure Codes: * Electronic signature of Glenny Salinas MD on 09/11/2024 at 03:20 PM CDT Sign off status: Pending * Provider: Montana DANG MD, F.A.C.P, F.A.S.N. Date: 0 03/29/2024 Generated for Printing/Faxing/eTransmitting on: 0 09/11/2024 03:20 PM CDT
--- OUTSIDE RECORDS SUMMARY | 2024-09-11 15:21 | XMS_ITS | Patient Health Record ---
Author Organization [facility] Address [address] [place] [address] Care Team Providers Care Civil Service Clerk Name Role Phone Alex Salinas Primary Care Provider Allergies No Known Allergies Reason For Referral No Information Medications Medication SIG (Take, Route, Frequency, Duration) Notes Start Date End Date Status Allopurinol 100 MG TAKE 1 TABLET BY SARTHAK TH EVERY DAY; Duration: 90 Active Ergocalciferol 1.25 MG (34572 UT) 1 capsule Orally Once a week; Duration: 90 days 09/11/2024 09/06/2025 Active Lasix 40 MG 1 tablet Orally Once a day; Duration: 90 days 03/30/2022 Active Magnesium Oxide -Mg Supplement 400 (240 Mg) MG TAKE 2 TABLETS BY MOUTH TWICE A DAY X10 DAYS; Duration: 10 Active Vitamin D (Ergocalciferol) 1.25 MG (35812 UT) TAKE 1 CAPSULE BY MOUTH ONE TIME PER WEEK FOR 90 DAYS; Duration: 90 Active Calcitriol 0.25 MCG TAKE 1 CAPSULE BY MO UTH EVERY DAY FOR 90 DAYS; Duration: 90 Active Lisinopril 20 MG TAKE 1 TABLET BY SARTHAK TH TWICE A DAY FOR 30 DAYS; Duration: 30 Active Magnesium Oxide 400 MG TAKE 1 TABLET BY MOUTH EVERY DAY NEEDED; Duration: 30 Active Problems Problem Type SNOMED Code ICD Code Onset Dates Problem Status W/U Status Risk Notes Problem Malignant neoplasm o f female breast (664015072) Malignant neoplasm of unspecified site of unspecified female breast (C50.919) Active confirmed Problem Diabetic renal disease (360247115) Type 2 diabetes mellitus with diabetic chronic kidney disease (E11.22) Active confirmed Problem Secondary hyperparathyroidism (43764360) Secondary hyperparathyroid ism, not elsewhere classified (E21.1) Active confirmed Problem Hyperparathyroidism (90235275) Hyperparathyroid ism, unspecified (E21.3) Active confirmed Problem Obesity (730141365) Obesity, unspecified (E66.9) Active confirmed Problem Hyperlipidemia (85413465) Hyperlipidemia, unspecified (E78.5) Active confirmed Problem Obstructive sleep apnea syndrome (disorder) (34488544) Obstructive sleep apnea (adult) (pediatric) (G47.33) Active confirmed Problem Renal osteodystrophy (62120315) Renal osteodystrophy (N25.0) Active confirmed Problem Essential hypertension (41498251) Essential hypertension (I10) Active confirmed Problem Chronic kidney disease stage 3A (disorder) (010986179) Chronic kidney disease, stage 3a (N18.31) Active confirmed Encounters Encounter Location Date Provider Diagnosis [facility] [address] [place] [address] 01/05/2024 Alex Salinas Chronic kidney disea se, stage 3a N18.31 ; Essential hypertension I10 ; Renal osteodystrophy N25.0 ; Secondary hyperparathyroidism, not elsewhere classified E21.1 and Obesity, unspecified E66.9 [facility] [address] [place] [address] 03/29/2024 Alex Salinas Chronic kidney disea se, stage 3a N18.31 ; Essential hypertension I10 ; Renal osteodystrophy N25.0 ; Obstructive sleep apnea (adult) (pediatric) G47.33 and Hyperlipidemia, unspecified E78.5 [facility] [address] [place] [address] 05/24/2024 Alex Salinas Chronic kidney disea se, stage 3b N18.32 ; Essential hypertension I10 ; Renal osteodystrophy N25.0 ; Secondary hyperparathyroidism, not elsewhere classified E21.1 ; Obesity, unspecified E66.9 ; Obstructive sleep apnea (adult) (pediatric) G47.33 ; Hyperlipidemia, unspecified E78.5 ; Type 2 diabetes mellitus with diabetic chronic kidney disease E11.22 ; Hyperparathyroidism, unspecified E21.3 and Malignant neoplasm of unspecified site of unspecified female breast C50.919 [facility] [address] [place] [address] 08/09/2024 Alex Salinas Chronic kidney disea se, [...] unspecified site of unspecified female breast C50.919 [facility] [place] [facility] [address] [place] [address] 03/29/2024 Alex Salinas [facility] [address] [place] [address] 09/11/2024 Alex Salinas Assessments Encounter Date Diagnosis (ICD Code) Assessment Notes Treatment Notes Treatment Clinical Notes Section Notes 03/29/2024 Essential hypertension (ICD-10 - I10) 03/29/2024 Chronic kidney disease, stage 3a (ICD-10 - N18.31) 05/24/2024 Chronic kidney disease, stage 3b (ICD-10 - N18.32) 08/09/2024 Chronic kidney disease, stage 3a (ICD-10 - N18.31) 01/05/2024 Chronic kidney disease, stage 3a (ICD-10 - N18.31) 01/05/2024 Essential hypertension (ICD-10 - I10) 08/09/2024 Essential hypertension (ICD-10 - I10) 05/24/2024 Essential hypertension (ICD-10 - I10) 03/29/2024 Renal osteodystrophy (ICD-10 - N25.0) 03/29/2024 Obstructive sleep apnea (adult) (pediatric) (ICD-10 - G47.33) 05/24/2024 Renal osteodystrophy (ICD-10 - N25.0) 08/09/2024 Renal osteodystrophy (ICD-10 - N25.0) 01/05/2024 Renal osteodystrophy (ICD-10 - N25.0) 01/05/2024 Secondary hyperparathyroidism , not elsewhere classified (ICD-10 - E21.1) 08/09/2024 Secondary hyperparathyroidism , not elsewhere classified (ICD-10 - E21.1) 05/24/2024 Secondary hyperparathyroidism , not elsewhere classified (ICD-10 - E21.1) 03/29/2024 Hyperlipidemia, unspecified (ICD-10 - E78.5) 05/24/2024 Obesity, unspecified (ICD-10 - E66.9) 01/05/2024 Obesity, unspecified (ICD-10 - E66.9) 08/09/2024 Obesity, unspecified (ICD-10 - E66.9) 08/09/2024 Obstructive sleep apnea (adult) (pediatric) (ICD-10 - G47.33) 05/24/2024 Obstructive sleep apnea (adult) (pediatric) (ICD-10 - G47.33) 08/09/2024 Hyperlipidemia, unspecified (ICD-10 - E78.5) 05/24/2024 Hyperlipidemia, unspecified (ICD-10 - E78.5) 08/09/2024 Type 2 diabetes mellitus with diabetic chronic kidney disease (ICD-10 - E11.22) 05/24/2024 Type 2 diabetes mellitus with diabetic chronic kidney disease (ICD-10 - E11.22) 08/09/2024 Hyperparathyroidism , unspecified (ICD-10 - E21.3) 05/24/2024 Hyperparathyroidism , unspecified (ICD-10 - E21.3) 05/24/2024 Malignant neoplasm of unspecified site of unspecified female breast (ICD-10 - C50.919) 08/09/2024 Malignant neoplasm of unspecified site of unspecified female breast (ICD-10 - C50.919) Plan Of Treatment Next Appt Details Provider Name:Alex Salinas , 10/11/2024 02:30:00 PM, [address], [facility] [address], [address],
--- OUTSIDE RECORDS SUMMARY | 2024-09-11 15:21 | XMS_ITS | Clinical Summary ---
Author Organization [facility] Address [address] [facility] [place] [address] Care Team Providers Care Mechanical Engineering Technologist Name Role Phone Richard Londono MD Primary Care Provider [phone] Allergies No known active allergies Medications calcitRIOL (ROCALTROL) 0.25 mcg capsule Take 0.25 mcg by mouth daily . 8 Active gabapentin (NEURONTIN) 300 mg capsule Take 300 mg by mouth 3 times daily . 8 Active lisinopril (PRINIVIL) 20 mg tablet Take 20 mg by mouth daily . 8 Active loperamide (IMODIUM) 2 mg capsule Take 2 mg by mouth 4 times daily as needed . 8 Active cholecalciferol 50,000 unit Capsule Take 50,000 Units by mouth every 30 days. Active ergocalciferol (VITAMIN D2) 50,000 unit capsule Vitamin D2 1,250 mcg (50,000 unit) capsule Take 1 capsule every week by oral route. Active ferrous sulfate 325 mg (65 mg iron) tablet TAKE 1 TABLET BY MOUTH ONCE DAILY 0 Active magnesium oxide (MAG-OX) 400 mg (241.3 mg magnesium) tablet TAKE 1 TABLET BY MOUTH ONCE DAILY IN THE MORNING FOR 14 DAYS 0 Active allopurinoL (ZYLOPRIM) 100 mg tablet TAKE 1 TABLET BY MOUTH EVERY DAY FOR 90 DAYS 2 Active anastrozole (ARIMIDEX) 1 mg tabletIndicatio ns:Malignant neoplasm of upper-outer quadrant of left breast in female, estrogen receptor positive (CMS/HCC) take 1 tablet by mouth every day 90 Tablet 3 4 Active atorvastatin (LIPITOR) 40 mg tablet Take 40 mg by mouth daily. Active Farxiga 5 mg Tablet Take 1 Tablet by mouth daily. 4 Active ALPHA LIPOIC ACID ORAL Take 200 mg by mouth 3 times daily. Active furosemide (LASIX) 40 mg tablet Take 40 mg by mouth daily. Active Ozempic 2 mg/dose (8 mg/3 mL) Pen Injector Inject 2 mg by subcutaneous injection every 7 days. Active Active Problems Problem Noted Date Diagnosed Date Aromatase inhibitor use 09/06/2018 History of external beam radiation therapy 09/06 History of antineoplastic chemotherapy 9 Obesity (BMI 35.0-39.9 without comorbidity) 03/14 Vitamin B12 deficiency anemia 02/22/2018 Iron deficiency anemia 02/22/2018 Malignant neoplasm of upper- outer quadrant of left breast in female, estrogen receptor positive 11/23/2017 Tobacco abuse 10/24/2017 Resolved Problems Problem Noted Date Diagnosed Date Resolved Date Chronic anemia 02/08/2018 07/27/2018 Breast ptosis 11/27/2017 07/27/2018 Vascular insufficiency 11/27/201707/27 Abnormal mammogram 10/31/2017 9 Abnormal ultrasound of breast 10/24/2017 07/27/2018 Encounters Date Type Department Care Team Description 08/28/2024 External Device Data [facility]STRACTION Provider, Abstract 07/31/2024 External Device Data [facility] Provider, Abstract 07/30/2024 External Device Data [facility] Provider, Abstract from Last 3 Months Family History Medical History Relation Name Comments Heart Disease Father No Known Problems Mother Relation Name Status Comments Father Mother Social History Tobacco Use Types Packs/Day Years Used Date Smoking Tobacco: Some Days Cigarettes 0.3 2 Started: 12/02/2015; Last attempted to quit: 12/01/2017 Smokeless Tobacco: Never Tobacco Cessation:Ready to Q uit: Not Asked; Counseling Given: Not Answered Comments:patient states that she has a ciggerit once a day. for nerves. Alcohol Use Standard Drinks/Week Comments No 0 (1 standard drink = 0.6 oz pur e alcohol) Comments No Sex and Gender Information Value Date Recorded Sex Assigned at Not on file Legal Sex Female 5:23 PM CDT Gender Identity Not on file Sexual Orientation Not on file Last Filed Vital Signs Vital Sign Reading Time Taken Comments Blood Pressure 111/69 03/21/2024 10:14 AM [employer] Pulse 111 03/21/2024 10:14 AM [employer] Temperature 36.2 C (97.1 F) 03/21/2024 10:14 AM [employer] Respiratory Rate 16 03/21/2024 10:14 AM [employer] Oxygen Saturation 95% 03/21/2024 10:14 AM [employer] Inhaled Oxygen Concentration - - Weight 94.6 kg (208 lb 9.6 oz) 03/21/2024 10:14 AM [employer] Height 154.9 cm (5' 1) 08/23/2021 1:09 PM CDT Body Mass Index 39.41 08/23/2021 1:09 PM CDT Plan of Treatment Upcoming Encounters Date Type Department Care Team (Late st Contact Info) Description 09/19/2024 10:15 AM CDT Office Visit [facility] [address] [facility] [address] [place] [address] Emir Ruggiero MD [address] [facility] [address] [place] [address] Health Maintenance Due Date Last Done Comments DIABETES ANNUAL FOOT EXAM 10/12/1969 DIABETES ANNUAL RETINAL EXAM 10/12/1969 DIABETES MICROALBUMIN ANNUAL SCREEN 10/12/1969 LDL CHOLESTEROL ANNUAL 10/12/1969 DTAP/TDAP/TD VACCINES (1 - Tdap) 10/12/1970 COLORECTAL SCREENING 10/12/1996 Colorectal Cancer Screening 10/12/1996 FIT-DNA Q 3 years 10/12/1996 FIT/FOBT Q 1 year 10/12/1996 Flex Sig/CT Colonography Q 5 years 10/12/1996 ZOSTER VACCINE (1 of 2) 10/12/2001 RSV VACCINE (60+ or ) (1 - Risk 60-74 years 1-dose series) 2011 Medicare Advantage ([place]) Preventative Visit/Annual Wellness Visit 03/13/2024 DIABETES HBA1C Q 6 MONTHS 04/03/2024 10/02/2023 OSTEOPOROSIS SCREENING 07/02/2024 07/03/2019, 2019 BREAST CANCER SCREENING 08/20/2024 08/21/19 24, 08/21/2023, 02/11/2021, Additional history exists INFLUENZA VACCINE (#1) 2024 2, 03/24/2021, 01/21/2020, Additional history exists PNEUMOCOCCAL VACCINE 50+ YEARS Completed 11/18/2022 , 09/15/2021 Procedures Procedure Name Priority Date/Time Associated Diagnosis Comments MAMMOGRAM REPORT Routine 08/21/2023 3:43 PM CDT XR DEXA BONE DENSITY AXIAL 1 OR MORE SITES Routine 07/03/2019 Osteopenia of multiple sites from Last 3 Months or Most Recently Relevant to Health Maintenance Results * MAMMOGRAM REPORT (08/21/2023 3:43 PM CDT) us Emir Ruggiero MD MAMMO ORDERABLES Final Result * XR DEXA BONE DENSITY AXIAL 1 OR MORE SITES (07/03/2019) Anatomical Region Laterality Modality Other us Emir Ruggiero MD DIAGNOSTIC IMAGING ORDERABLES F inal Result from Last 3 Months or Most Recently Relevant to Health Maintenance Insurance [facility] Care Teams Mechanical Engineering Technologist Relationship Specialty Start Date End Date Richard Londono MD [address] [place] [phone] PCP - General Internal Medicine 10/24/17
--- OUTSIDE RECORDS SUMMARY | 2024-09-11 15:22 | XMS_ITS ---
Author Organization [facility] Address [address] [facility] [address] [facility] [address] [place] [address] Care Team Providers Care Travel Guide Name Role Phone Alex Salinas Primary Care Provider [phone] Problems Problem Type SNOMED Code ICD Code Onset Dates Problem Status W/U Status Risk Notes Problem Diabetic renal disea se (289604357) Type 2 diabetes mellitus with diabetic chronic kidney disease (E11.22) Active confirmed Problem Hyperparathyroidism (45469963) Hyperparathyro idism, unspecified (E21.3) Active confirmed Problem Malignant neoplasm of unspecified site of unspecified female breast (C50.919) Active confirmed Encounters Encounter Location Date Provider Diagnosis [place] [facility] [address] [facility] [address] [place] [address] 05/24/2024 Alex Salinas Chronic kidney disea se, [...] Treatment Notes Treatment Clinical Notes Section Notes 05/24/2024 Chronic kidney disease, stage 3b (ICD-10 - N18.32) 05/24/2024 Essential hypertension (ICD-10 - I10) 05/24/2024 Renal osteodystrophy (ICD-10 - N25.0) 05/24/2024 Secondary hyperparathyroidism , not elsewhere classified (ICD-10 - E21.1) 05/24/2024 Obesity, unspecified (ICD-10 - E66.9) 05/24/2024 Obstructive sleep apnea (adult) (pediatric) (ICD-10 - G47.33) 05/24/2024 Hyperlipidemia, unspecified (ICD-10 - E78.5) 05/24/2024 Type 2 diabetes mellitus with diabetic chronic kidney disease (ICD-10 - E11.22) 05/24/2024 Hyperparathyroidism , unspecified (ICD-10 - E21.3) 05/24/2024 Malignant neoplasm of unspecified site of unspecified female breast (ICD-10 - C50.919) Plan Of Treatment Next Appt Details Provider Name:Alex Brad , 10/11/2024 02:30:00 PM, [address] [facility], [facility] [address], [address], Progress Notes * KATRINA HANLEYNAVNEETOB:1950 (73 yo F)Acc No.[id number]:05/24/2024 Progress Notes Patient: TRI HONG Provider: Montana DANG MD, F.A.C.P, F.A.S.N. :1950 A ge:73 Y S ex:Female Date:05/24/2024 Address:[address] [place] [address] Subjective: * Chief Complaints: * * Medical History: Objective: * Vitals: Assessment: * Assessment: 1. C hronic kidney disease, stage 3b - N18.32 (Primary) 2 . E ssential hypertension - [...] Treatment: * Billing Information: * Visit Code: 12736 Office Visit, Est Pt., Level 4. * Procedure Codes: * Electronic signature of Glenny Salinas MD on 09/11/2024 at 03:21 PM CDT Sign off status: Pending * Provider: Montana DANG MD, F.A.C.P, F.A.S.N. Date: 05/24/2024 Generated for Printing/Faxing/eTransmitting on: 09/11/2024 03:21 PM CDT
[2024-09-11 15:35] LABS: Hematocrit 37.1 % (37.0-47.0); Hemoglobin 11.5 g/dL (12.0-15.0); Immature Granulocyte Percent A 0.4 % (0-0.5); Lymphocytes Absolute Auto 1.96 K/mm3 (0.9-3.2); Mean Corpuscular HGB Conc 31.0 g/dl (32-36); Mean Corpuscular Hemoglobin 29.9 pg (26-34); Mean Corpuscular Volume 96.4 fl (80-100); Nucleated Red Blood Cells Absolute Auto 0.000 K/mm3 (0.0-0.012); Nucleated Red Blood Cells Perc 0.0 % (0.0-0.2); Platelet Count Result 241 k/mm3 (150-375); Red Blood Count 3.85 M/mm3 (4.2-5.4); White Blood Count 8.0 K/mm3 (4.5-10.0)
[2024-09-12 20:24] LABS: CA 15-3. 19 U/mL (<32)
[2024-09-16 11:22] LABS: Immunoglobulin A 197 mg/dL (70-400); Immunoglobulin G 924 mg/dL (700-1600); Immunoglobulin M 40 mg/dL (40-230)
[2024-09-16 11:23] LABS: Sodium 153 mmol/L (137-145)
[2024-09-16 11:24] LABS: Anion Gap 22 mmol/L (4-12); Carbon Dioxide 16 mmol/L (22-30); Chloride 115 mmol/L (98-107); Potassium 5.0 mmol/L (3.4-5.0)
[2024-09-16 11:25] LABS: Blood Urea Nitrogen 19 mg/dL (7-17); Estimated Glomerular Filt Rate 37; Glucose 118 mg/dL (65-110)
[2024-09-16 11:26] LABS: Aspartate Amino Transferase 15 U/L (14-36); Bilirubin,Total 0.2 mg/dL (0.2-1.3); Calcium 9.4 mg/dL (8.4-10.2)
[2024-09-16 11:27] LABS: Alanine Aminotransferase 17 U/L (6-35); Albumin Level 4.3 g/dL (3.5-5.1); Total Protein 7.2 g/dL (6.3-8.2)
[2024-09-16 11:28] LABS: Alkaline Phosphatase 79 U/L (38-126)
[2024-09-16 15:10] LABS: Albumin 3.8 g/dL (3.8-4.8); Gamma Globulin 0.7 g/dL (0.8-1.7)
== END 2024-09-11 15:18 | disposition home or self-care (01) ==
PROVIDERS: PCP Internal Medicine; Visit Provider Internal Medicine Hematology & Oncology
DX: C50.412 Malignant neoplasm of upper-outer quadrant of left female breast (principal); Z17.0 Estrogen receptor positive status [ER+]; D72.9 Disorder of white blood cells, unspecified
CPT/HCPCS: 36415; 80053; 82784; 83521; 84155; 84165; 85025; 86300

== ENCOUNTER 2025-02-19 10:09 | Outpatient (CLI) | payer MEDICARE, SELFPAY ==
--- NOTE | ~2025-02-19 | MM_ITS ---
EXAMINATION: MM screening mirella BI w patrick HISTORY: Screening. Bilateral reduction mammoplasty. Left lumpectomy/partial mastectomy. TECHNIQUE: Craniocaudal and mediolateral oblique 3-D tomosynthesis images were obtained and synthetic 2-D images were generated. CAD analysis was submitted and interpreted. COMPARISON: 2023, 2022, and 2021. BREAST PARENCHYMAL COMPOSITION: Not Dense: There are scattered areas of fibroglandular FINDINGS: No suspicious masses are seen. There are no suspicious calcifications. Postop changes are seen. No unexplained architectural distortion is seen. There are no skin or nipple abnormalities identified. There is no adenopathy seen on the images submitted. IMPRESSION: No mammographic evidence to suggest malignancy is seen. The patient may return to screening mammography as per ACR guidelines. BI-RADS 2 - Benign. Reviewed, dictated and finalized at location C. [facility]
== END 2025-02-19 10:10 | disposition home or self-care (01) ==
LOC: ANHFOHIMG 10:10
PROVIDERS: PCP Internal Medicine; Visit Provider Obstetrics & Gynecology
DX: Z12.31 Encounter for screening mammogram for malignant neoplasm of breast (principal)
CPT/HCPCS: 77063; 77067